=== PATIENT | male | born 1965 | race Caucasian/White ===

== ENCOUNTER → 2017-11-06 | Outpatient (REF) | payer BC ==
[2017-11-06 19:16] LABS: COMPLEMENT C3 107 MG/DL (90-180); COMPLEMENT C4 25.2 MG/DL (10-40); TOTAL PROTEIN 7.3 GM/DL (6.4-8.2)
[2017-11-08 09:33] LABS: HEPATITIS B SURFACE ANTIGEN NEGATIVE (NEGATIVE)
[2017-11-08 09:50] LABS: HEPATITIS C VIRUS ABY INDEX < 0.0 INDEX (<0.8)
[2017-11-08 12:32] LABS: ALBUMIN 4.43 GM/DL (3.29-5.55); ALBUMIN % 60.7 % (55.8-66.1); ALPHA-1-GLOBULIN % 3.7 % (2.9-4.9); ALPHA-1-GLOBULINS 0.27 GM/DL (0.17-0.41); ALPHA-2-GLOBULINS 0.68 GM/DL (0.42-0.99); ALPHA-2-GLOBULINS % 9.3 % (7.1-11.8); BETA-1-GLOBULINS 0.44 GM/DL (0.28-0.60); BETA-2-GLOBULINS 0.42 GM/DL (0.19-0.55); BETA-2-GLOBULINS % 5.7 % (3.2-6.5); GAMMA GLOBULIN % 14.6 % (11.1-18.8); GAMMA GLOBULINS 1.07 GM/DL (0.65-1.58)
[2017-11-08 14:55] LABS: UPEP INTERPRETATION NO M-SPIKE NOTED; URINE VOLUME RANDOM ML
[2017-11-10 00:37] LABS: ANCA-ATYPICAL <1:20 titer (Neg:<1:20); ANTI DOUBLE STRAND-DNA AB 2 IU/mL (0-9); CYTOPLASMIC NEUTROP AB ANCA-C <1:20 titer (Neg:<1:20); PERINUCLEAR AB ANCA-P <1:20 titer (Neg:<1:20)
== END ==
LOC: M LAB REF 17:15
DX: R80.9 Proteinuria, unspecified (principal)
CPT/HCPCS: 84165

== ENCOUNTER 2019-09-18 15:46 | Inpatient (IN) | payer BC ==
[~2019-09-18] VITALS: Ht 182.9 cm; Wt 106.3 kg
[2019-09-18] MEDS ORDERED: ACETAMINOPHEN TAB 650MG DOSE (2X325MG) PO PRN (17:00)
[2019-09-18] MEDS ORDERED: AMLO10TA5 PO (17:54)
[2019-09-18] MEDS ORDERED: METO1TAB7 PO (17:54)
--- NOTE | 2019-09-18 18:07 | HPEPDOC ---
General Date of Admission September 18, 2019 at 16:40 Date of Service: September 18, 2019 Chief Complaint The patient is a 54-year-old male admitted with a reason for visit of Acute Renal Failure. Source: Patient Exam Limitations: No limitations Timing/Duration: Week(s) Severity: Moderate Associated Symptoms: Shortness of breath History of Present Illness Patient is 54 years old male with past medical history of hypertension, migraine, Wazsh-Rpwnlwvdm-Nxvme syndrome was transferred from [facility] with acute kidney injury. Patient stated that for past 12 months he didn't take any blood pressure medications due to to lack of insurance. For past 3-4 months he has been having increased headache. Yesterday he was in the outpatient clinic and he was found to have abnormal blood test and he was sent ER in [facility]. In ER patient was found to have blood pressure of 151/98, hemoglobin of 7.2, BUN 174 and creatinine 18, GFR 3, BNP 20,136. Patient was seen by Dr. Hendricks who recommended transfer him to [facility]. When I saw the patient he complains of shortness of breath, he stated he has been having increasing shortness of breath for past 3-4 months. Also patient stated that he has increased leg swelling for past few weeks. Home Medications Scheduled Amlodipine Besylate (Amlodipine Besylate) 10 Mg Tablet, 10 MG PO QHS, (Reported) Calcitriol (Calcitriol) 0.25 Mcg Capsule, 0.5 MCG PO DAILY Carvedilol (Carvedilol) 12.5 Mg Tablet, 25 MG PO BID Pantoprazole Sodium (Pantoprazole Sodium) 40 Mg Tablet., 40 MG PO QAM Allergies Coded Allergies: No Known Allergies (Unverified , 09/18/19) Past Medical History Medical History Hypertension, Voenw-Fzlyubekl-Mmyud syndrome, migraine Family History I reviewed his family history and found not pertinent Social History * Smoker: former Smoker Alcohol: Denies Drugs: denies A-FIB/CHADSVASC A-FIB History Current/History of A-Fib/PAF?: No Current PO Anticoag Therapy: No Review of Systems Constitutional: Reports: Weakness, Fatigue; Denies: Chills, Fever Eyes: Denies: Pain ENT: Reports: Head Aches Skin: Denies: Rash Pulmonary: Reports: Dyspnea Cardiovascular: Denies: Chest Pain, Palpitations Gastrointestinal: Denies: Nausea, Vomiting Genitourinary: Denies: Dysuria, Frequency Hematologic: Denies: Bruising Endocrine: Denies: Polydipsia, Polyphagia Musculoskeletal: Denies: Neck Pain Neurological: Denies: Weakness, Numbness Psych: Reports: Mood Normal Physical Examination General Exam: Positive: Alert, No Acute Distress Eye Exam: Positive: PERRLA ENT Exam: Positive: Atraumatic Neck Exam: Positive: Supple; Negative: JVD Chest Exam: Positive: Clear to auscultation, Other (dyspnea) Heart Exam: Positive: Rate Normal Telemetry: Positive: No significant arrhythmia Abdomen Exam: Positive: Normal bowel sounds Extremity Exam: Negative: Clubbing Skin Exam: Positive: Nl turgor and temperature Neuro Exam: Positive: Strength at 5/5 X4 ext, Cranial Nerves 3-12 NL Psych Exam: Positive: Mental status NL Vital Signs [id number] Assessment/Plan Patient is 54 years old male with past medical history of hypertension, migraine, Ezihe-Uuzkiaioj-Lryra syndrome was transferred from [facility] with acute kidney injury. Patient stated that for past 12 months he didn't take any blood pressure medications due to to lack of insurance. For past 3-4 months he has been having increased headache. Yesterday he was in the outpatient clinic and he was found to have abnormal blood test and he was sent ER in [facility]. In ER patient was found to have blood pressure of 151/98, hemoglobin of 7.2, BUN 174 and creatinine 18. Patient was seen by Dr. Hendricks who recommended transfer him to [facility]. When I saw the patient he complains of shortness of breath, he stated he has been having increasing shortness of breath for past 3-4 months. Also patient stated that he has increased leg swelling for past few weeks. Problems (1) STELLA (acute kidney injury) Status: Acute Problem Text: Most likely due to hypertensive nephropathy Patient was noncompliant to his blood pressure medications We will check UA, electrolytes, osmolality, sediments, ZANE, c-ANCA, BNP, C3, C4 We'll proceed with imaging study We'll repeat CMP, CBC Appreciate/agree with director of social work consult (2) Acute anemia Status: Acute Problem Text: Unknown etiology for now most likely be secondary to acute on chronic kidney failure Iron panel Stool for occult blood B12, folate We will transfuse if hemoglobin less than 7 (3) Hypertension Status: Chronic Problem Text: Blood pressure currently is under control Continue Norvasc 10 mg daily Continue metoprolol 50 mg Hydralazine IV when necessary with parameters Plan / VTE VTE Prophylaxis Ordered?: Yes BRIT AC DO September 18, 2019 18:07
[2019-09-18] MEDS ORDERED: hydrALAZINE 20MG/ML 1ML VIAL (J0360 PER 20MG) IV PRN (18:15)
[2019-09-18 18:34] LABS: HEMATOCRIT 21.2 % (42.0-52.0); HEMOGLOBIN 7.4 g/dl (13.5-17.5); MEAN CORPUSCULAR HGB CONC 34.9 g/dl (32.0-36.5); MEAN CORPUSCULAR VOLUME 85.8 fl (80.0-96.0); PLATELET COUNT, AUTOMATED 152 10^3/uL (150-450); RED BLOOD COUNT 2.47 10^6/uL (4.30-6.10)
[2019-09-18 18:39] LABS: IONIZED CALCIUM 3.1 MG/DL (4.5-5.3)
[2019-09-18 18:57] LABS: INR 1.1; PROTHROMBIN TIME 13.9 SECONDS (11.8-14.0)
[2019-09-18 19:08] LABS: ALBUMIN 3.3 GM/DL (3.2-5.2); ALT/SGPT 51 U/L (12-78); BILIRUBIN,TOTAL 0.3 MG/DL (0.2-1.0); BLOOD UREA NITROGEN 172 MG/DL (7-18); CALCIUM LEVEL 5.5 MG/DL (8.5-10.1); CARBON DIOXIDE LEVEL 8 MEQ/L (21-32); CHLORIDE LEVEL 106 MEQ/L (98-107); GLOMERULAR FILTRATION RATE 2.9 (>56); GLUCOSE, FASTING 89 MG/DL (70-100); POTASSIUM SERUM 4.7 MEQ/L (3.5-5.1); SODIUM LEVEL 133 MEQ/L (136-145); TOTAL PROTEIN 6.2 GM/DL (6.4-8.2)
[2019-09-18 19:20] LABS: URIC ACID 7.7 MG/DL (3.5-7.2)
[2019-09-18] MEDS ORDERED: SODIUM BICARBONATE 8.4% INJ 50 ML SYRINGE IV ONE (19:45)
[2019-09-18 19:50] LABS: HEMOGLOBIN A1c 4.8 %
[2019-09-18 19:56] LABS: CHOLESTEROL LEVEL 136 MG/DL (<200); CHOLESTEROL RISK RATIO 3.885 (<5); FERRITIN 265 NG/ML (26-388); HDL CHOLESTEROL 35 MG/DL (>40); IRON (FE) 230 UG/DL (65-175); LDL CHOLESTEROL 77 MG/DL (<100); NON-HDL-C 101 MG/DL; PTH INTACT 1064.4 PG/ML (18.5-88.0); TOTAL IRON BINDING CAPACITY 213 UG/DL (250-450); TRIGLYCERIDES LEVEL 122 MG/DL (<150)
[2019-09-18 20:00] VITALS: BP 161/94
[2019-09-18] MEDS ORDERED: DARBEPOETIN 200MCG/0.4ML *DIALYSIS* SYRINGE (J0882 PER 1MCG) IV SCH (20:30)
[2019-09-18 20:38] LABS: ABG BASE EXCESS -17.3 (-2.0-2.0); ABG HCO3 7.7 MEQ/L (22.0-26.0); ABG O2 SATURATION 98.3 % (95.0-99.0); ABG PARTIAL PRESSURE O2 159.5 mmHg (75.0-100.0); ABG STANDARD HCO3 10.9 MEQ/L (22.0-26.0); ABG TOTAL CO2 8.2 MEQ/L (22.0-29.0); ABG pH (ARTERIAL) 7.285 UNITS (7.350-7.450)
[2019-09-18 20:40] LABS: ABG PARTIAL PRESSURE CO2 16.5 mmHg (35.0-45.0)
[2019-09-18] MEDS: amLODIPine 10 MG TAB PO SCH (20:48)
[2019-09-18] MEDS: METOPROLOL SUCC (TopROL XL) 50MG **XL** TAB PO SCH (20:48)
[2019-09-18] MEDS ORDERED: HEPARIN SOD (PORCINE) 5000UNITS/ML VIAL (J1644 PER 1000UNITS) SC SCH (21:00)
[2019-09-18 22:28] LABS: CREATININE,RANDOM URINE 42.2 MG/DL; POTASSIUM RANDOM URINE 14.1 MEQ/L
--- NOTE | 2019-09-18 22:52 | REP ---
CHEST: REASON: Dyspnea. PRIORS: None. FINDINGS: The technique utilized in obtaining the radiograph has magnified the cardiac silhouette and accentuated the interstitial markings. The superior mediastinal structures are midline. The cardiac silhouette is unremarkable in size, shape, and position. The diaphragmatic surfaces of the lungs are regular, and the costophrenic angles are clear. The pulmonary benton are clear. The imaged osseous structures are intact. IMPRESSION: There is no acute cardiopulmonary disease. Electronically Signed by Ronald Kenney DO 09/19/2019 11:58 A
--- NOTE | 2019-09-18 23:14 | REPVR ---
PROCEDURE INFORMATION: Exam: US Retroperitoneal Limited, Kidneys Exam date and time: 09/18/2019 11:04 PM Age: 54 years old Clinical indication: Abnormal findings; Abnormal lab test; Other: Wili; Additional info: Acute kidney injury TECHNIQUE: Imaging protocol: Real-time ultrasound of the retroperitoneum with image documentation. Examination was focused on the kidneys. COMPARISON: No relevant prior studies available. FINDINGS: Right kidney: The right kidney measures 11.4 cm in its cephalocaudad dimension and 4.3 x 4.1 cm in diameter. The parenchyma is echogenic with no mass, cyst or hydronephrosis. Left kidney: The left kidney measures 9.2 cm in its cephalocaudad dimension and 4.4 x 4.3 cm in diameter. The parenchyma is echogenic with no mass, cyst or hydronephrosis. Bladder: The urinary bladder is incompletely distended but appear grossly unremarkable. IMPRESSION: 1. Echogenic kidneys bilaterally consistent with medical renal disease. 2. Otherwise negative renal sonogram. No hydronephrosis. Electronically signed by: Jelani Mata On 09/18/2019 23:14:07 PM
[2019-09-19] VITALS (14 sets, daily range): BP systolic 130–180; BP diastolic 78–106
[2019-09-19 05:23] LABS: MEAN CORPUSCULAR HEMOGLOBIN 30.2 pg (27.0-33.0); MEAN CORPUSCULAR HGB CONC 35.4 g/dl (32.0-36.5); MEAN CORPUSCULAR VOLUME 85.3 fl (80.0-96.0); PLATELET COUNT, AUTOMATED 136 10^3/uL (150-450); RED BLOOD COUNT 2.25 10^6/uL (4.30-6.10); WHITE BLOOD COUNT 6.4 10^3/uL (4.0-10.0)
[2019-09-19 05:40] LABS: HEMATOCRIT 19.2 % (42.0-52.0)
[2019-09-19 05:41] LABS: HEMOGLOBIN 6.8 g/dl (13.5-17.5)
[2019-09-19 06:25] LABS: ALBUMIN 2.9 GM/DL (3.2-5.2); BILIRUBIN,TOTAL 0.5 MG/DL (0.2-1.0); CALCIUM LEVEL 5.6 MG/DL (8.5-10.1); GLOMERULAR FILTRATION RATE 2.8 (>56); MAGNESIUM LEVEL 2.7 MG/DL (1.8-2.4); POTASSIUM SERUM 4.3 MEQ/L (3.5-5.1); TOTAL PROTEIN 5.6 GM/DL (6.4-8.2)
[2019-09-19] MEDS: CALCIUM ACETATE 667MG GELCAP PO SCH ×3 (08:52→15:52)
--- NOTE | 2019-09-19 09:42 | CR ---
DATE OF CONSULTATION: 09/18/2019 REASON FOR CONSULTATION: Acute kidney failure. HISTORY OF PRESENT ILLNESS: This is a 54-year-old male with a pertinent past medical history of hypertension, Cqazm-Obmtaaebh-Ezdqk syndrome, noncompliance who was transferred from [facility] for acute kidney failure. The patient states that he went to the emergency room as he was complaining of dyspnea on exertion for the last 2 weeks that was not improving. He notes that the dyspnea on exertion was noticeable when he was at home and was ambulating about 30 feet from his living room to his bedroom. He endorses that the dyspnea on exertion improved with rest. The patient does endorse having lower extremity edema that has worsened in the last 2 weeks as well and he is unable to sleep at night. He normally sleeps with two pillows at night. For the last 2 weeks he has increased to four to five pillows and is sitting up so he is unable to get a good night's rest. He denies any chest pain, palpitations, other respiratory-like symptoms and sick contacts. He does endorse having watery loose diarrhea for the last 1 month but no new antibiotics or any medication change. He does state to me that he was on amlodipine in the past and does not believe in taking any medication. When reviewing [facility] records, it is documented that the patient was on metoprolol succinate 50 mg daily, amlodipine 10 mg daily as well as hydralazine 50 mg twice a day. He did endorse at that initial presentation, he stopped taking his hydralazine after he saw his renal specialist 1 year prior. He is unsure of the other medications and who prescribed them but he did not admit them to me during this exam. In [facility] emergency room, laboratory showed a BUN 175, creatinine 18.0 with a GFR of 3, calcium 5.7, and a proBNP of 20,136. Chest x-ray shows mild diffuse prominent interstitial markings throughout both lungs but no focal pulmonary consolidation or pleural effusion. EKG was reviewed by me and this shows biatrial enlargement, sinus rhythm, normal axis with a slightly prolonged QTC of 492 ms and delta wave which is more noticeable in AVF and V3. [facility] emergency room then called [facility] for transfer for evaluation by nephrology for possible dialysis. PAST MEDICAL HISTORY: 1. Hypertension. 2. Chronic kidney disease stage IV. 3. Qfctz-Keommecnk-Yxacd syndrome. PAST SURGICAL HISTORY: Anterior cruciate ligament (ACL) repair in the left knee. FAMILY HISTORY: Mother - hypertensive disease. Father - chronic obstructive pulmonary disease (COPD), . Negative for chronic kidney disease, history of dialysis or cardiomyopathies. SOCIAL HISTORY: Former smoker. Quit 10 years ago. Smokes one pack a day for 10 years. Socially drinking alcohol like one to two beers but denies any illicit drug use. He is a F[employer] and has no health care proxy. He lives with his girlfriend in [place]. ALLERGIES: No known drug allergies. REVIEW OF SYSTEMS: Denies fevers, rigor. Endorses chills and weight gain. Unsure of how much. HEENT: Endorses presyncope, dizziness, lightheadedness. Denies any vision change, postnasal drip, or upper respiratory-like symptoms. CARDIOVASCULAR: Denies any palpitations, chest pain. Endorses lower extremity edema. Endorses paroxysmal nocturnal dyspnea. RESPIRATION: Endorses dyspnea on exertion. Denies wheezing, cough. ABDOMINAL: Denies nausea or vomiting. Endorses watery loose stool. Denies black tarry stool or blood in stool. GENITOURINARY: Denies any increased in urinary frequency, dysuria or decrease in urine flow or disruption in urine flow. HEMATOLOGICAL: Denies any lymphadenopathy, easy bruising or bleeding. ENDOCRINE: Denies any polydipsia, polyphagia or history of diabetes. MUSCULOSKELETAL: Denies any new joint swelling, joint pain or back pain. NEUROLOGIC: Denies any headaches, weakness or numbness. INTEGUMENTARY: Endorses a pruritic rash on the back and his forearms but nonpapillary specific. PSYCH: Denies any depression or anxiety. PHYSICAL EXAMINATION: VITALS: Temperature 97.7, pulse 76, respiration 18, blood pressure 151/94, map of 116, pulse oximetry 99% on room air. GENERAL: This is a very pleasant 54-year-old male sitting up in bed. Does not appear in any acute distress. Not using any accessory muscles with no normal conversation, saturating appropriately on room air. HEENT: Atraumatic, normocephalic. Pupils equal, round and reactive. Pale conjunctiva. No epistaxis noted. Mallampati score of 4. Moist mucous membranes. Jugular venous distention (JVD) 5 cm up the sternal notch with no lymphadenopathy and trachea is at midline. CARDIOVASCULAR: Distant heart sounds. No audible murmurs or rubs appreciated. S1, S2 sounds are present but faint. Very difficult to assess. Unsure if due to body habitus. 1+ pitting edema bilaterally up to knees. No sacral edema noted. PULMONARY: Clear to auscult bilaterally. No audible wheezing, rhonchi or rales. No E/A egophony. CHEST: Gynecomastia noted. GASTROINTESTINAL: Positive bowel sounds in all four quadrants. Obese abdomen with no bruising, tenderness on palpitation. No rebound or guarding noted. No skin changes noted as well. GENITOURINARY: Exam deferred. No costovertebral angle (CVA) tenderness bilaterally. INTEGUMENTARY: Rash. Multiple tattoos appreciated bilaterally in the arms upper and in the forearms. NEUROLOGIC: No focal deficits noted. No asterixis noted. Alert and oriented times three, appropriately answering questions. PSYCH: Appropriate affect. LABORATORY: Hematology: WBC 7.0, hemoglobin 10.4, hematocrit 21.2, platelets 152. Chemistry: Sodium 133, potassium 4.7, chloride 106, carbon dioxide 8, ion gap 19, BUN 172, creatinine 18.50, GFR 2.9, fasting glucose 89. A1c 4.8, osmolality 341, uric acid 7.7, calcium 5.5, ionized calcium 3.1, phosphorus 15.0, iron 230, TIBC 213, transferrin percent 108, ferritin 265. .Total bilirubin 0.3, AST 21, ALT 51, alkaline phosphatase 82. Total creatinine kinase 568, proBNP 21,433. Total protein 6.2, albumin 3.3. ABG: pH 7.285, pCO2 16.5, pO2 159.5, HcO3 7.7. Compliment C3 87, compliment C4 24. IMAGING: Chest x-ray: Official report is currently pending. Right cardiac silhouette appears slightly enlarged. Slight increase in interstitial markings but no pleural effusion or consolidation under costophrenic angles bilaterally. Slight widening of the mediastinum consistent with the uncoiling of the aorta. There is increased interstitial markings bilaterally. ASSESSMENT/PLAN: 1. End-stage renal disease: Patient does have a history of chronic kidney disease. Was last seen by Dr. Hendricks's office in May 2018. At that time, he had a stage IV kidney disease with a GFR of 25%. At the current time, his GFR is 3% with BUN of 174 and a creatinine of 18.0. This is consistent with end-stage renal disease. With a PTH being 1064 patient states that this has been going on for at least greater than 6 months. Osmolarity being 341 with no neurologic deficits noted, means that the patient has compensated this slowly and is more of a chronic process versus an acute change. The patient was discussed the risks and benefits of hemodialysis and is agreeable of going to hemodialysis three times a week. It is not urgent to do it tonight because the patient is apparently not in any distress. We will order a PermaCath be placed in the morning. He will be nothing by mouth after midnight and he will start dialysis tomorrow. PFS consult will be placed to set up outpatient dialysis. The possible cause of his end-stage renal disease could be secondary to his noncompliance with his hypertensive medication abut will obtain baseline labs as well such as ANCA, pANCA, cANCA, DsDNA Ab,GBM Ab, compliment, Hepatitis B and hepatitis C screening as well. 2. Anemia in the setting of end-stage renal disease: His hemoglobin was 7.4 and hematocrit 21.2. Physical exam is consistent with anemia with a pale conjunctiva and pale-appearing skin. He states that his fecal stool at the [facility] emergency room was negative for blood but will confirm again today. We will transfuse him 2 units of packed red blood cells, but he will get it tomorrow at hemodialysis for his is currently fluid-overloaded and we will have to do it while he is being dialyzed. The risks and benefits were reviewed with the patient and the consent has been placed on the chart. 3. Hypertensive heart disease: His blood pressure this evening was 131/94 with a map of 116. He is noncompliant with his home medications such as the hydralazine, amlodipine, and metoprolol even though his heart rate has been at 76 beats per minute at this current time. His hypertensive heart disease can be contributed by his fluid overload from his end-stage renal disease. He is currently asymptomatic so no urgent IV medications. We will just continue with his amlodipine 10 mg and his metoprolol 50 mg nightly and monitor his hypertension. 4. High ion gap metabolic acidosis: Serum bicarbonate was 8, ABG showed a pH of 7.28 with a pCO2 of 16.5 which is consistent with high ion gap metabolic acidosis secondary to his end-stage renal disease. We do recommend giving him 1 amp of sodium bicarbonate at this current time and then tomorrow, we will start with dialysis but will do insufficient clearance to make sure we do not over correct too fast. 5. Congestive heart failure diastolic dysfunction probably secondary to longstanding uncontrolled hypertension. Will obtain an echocardiogram and optimize his volume status with dialysis. We will continue with metoprolol succinate 50 mg daily and review his echocardiogram. 6. Chronic kidney disease with mineral bone disease: PTH significantly elevated with low calcium and high phosphorus. This means that the patient's kidney injury is more chronic in nature. We have started him on PhosLo and we will notice improvement of the PTH with multiple dialysis sessions. VYD
[2019-09-19] MEDS ORDERED: MIDAZOLAM INJ 2MG/2ML VIAL (J2250 PER 1MG) As Ordered ONE (10:27)
[2019-09-19] MEDS ORDERED: diphenhydrAMINE 50MG/ML VIAL (J1200) As Ordered ONE (10:27)
[2019-09-19] MEDS ORDERED: fentaNYL 100 MCG/2 ML INJECTION (J3010) As Ordered ONE (10:27)
[2019-09-19] MEDS ORDERED: LIDOCAINE 1% MDV 20ML VIAL As Ordered ONE (10:28)
[2019-09-19] MEDS ORDERED: ceFAZolin 1GM VIAL (J0690 PER 500MG) As Ordered ONE (10:35)
--- NOTE | 2019-09-19 12:00 | IPNPDOC ---
Text Note Date of Service The patient was seen on 09/19/19. NOTE Subjective: No any acute events overnight. Patient complains of mild shortness of breath. He denies fever, chills, nausea, vomiting, diarrhea Objective: VITAL SIGNS: Please see below. GENERAL: awake, alert, NAD HEENT: NCAT, anicteric sclera, KEKE NECK: supple, plus JVD CARDIOVASCULAR EXAMINATION: NS1S2, regular rate/rhythm RESPIRATORY EXAMINATION: CTA b/l, no wheezes/rales/rhonchi ABDOMINAL EXAMINATION: positive bowel sounds x 4, NT EXTREMITIES: no cyanosis, clubbing, edema SKIN: warm, no rashes. NEUROLOGICAL EXAMINATION: AAO x 3, no motor/sensory deficits PSYCHIATRIC EXAMINATION: calm, normal affect Assessment/Plan Patient is 54 years old male with past medical history of hypertension, migraine, Txenx-Txqushdac-Peceu syndrome was transferred from [facility] with acute kidney injury. Patient stated that for past 12 months he didn't take any blood pressure medications due to to lack of insurance. For past 3-4 months he has been having increased headache. Yesterday he was in the outpatient clinic and he was found to have abnormal blood test and he was sent ER in [facility]. In ER patient was found to have blood pressure of 151/98, hemoglobin of 7.2, BUN 174 and creatinine 18. Patient was seen by Dr. Hendricks who recommended transfer him to [facility]. When I saw the patient he complains of shortness of breath, he stated he has been having increasing shortness of breath for past 3-4 months. Also patient stated that he has increased leg swelling for past few weeks. Problems (1) STELLA (acute kidney injury) Most likely due to hypertensive nephropathy vs autoimmune diseases vs nephrotic syndrome Patient was noncompliant to his blood pressure medications Dialysis today with blood transfusion ANCA, pANCA, cANCA, Hepatitis panel pending (2) Acute anemia Unknown etiology for now Most likely secondary to acute on chronic kidney failure Iron panel did not show low iron Stool for occult blood was negative in [facility]. We will repeat it B12, folate pending Will transfuse today during dialysis (3) Hypertension Blood pressure currently is under control Continue Norvasc 10 mg daily Continue metoprolol 50 mg Hydralazine IV when necessary with parameters Metabolic acidosis Secondary to uremia Patient received bicarbonate yesterday Dialysis today Secondary hyperparathyroidism Secondary to acute on chronic kidney failure Phoslo started Calcium replaced VS,Fishbone, I+O VS, Fishbone, I+O Laboratory Tests 09/18/19 18:17 09/19/19 04:56 Vital Signs Date Time Temp Pulse Resp B/P (MAP) Pulse Ox O2 Delivery O2 Flow Rate FiO2 09/19/19 11:35 64 16 99 Nasal Cannula 2 09/19/19 10:08 99 09/19/19 08:00 130/81 (97) I&O- Last 24 Hours up to 6 AM 09/19/19 05:59 Intake Total 920 ml Output Total 800 ml Balance 120 ml BRIT AC DO September 19, 2019 12:00
--- NOTE | 2019-09-19 12:31 | REP ---
IR Permcath placement. IR ultrasound of the right neck. IR Permcath insertion under fluoroscopy and ultrasound guidance. IR moderate sedation. Clinical information: Renal failure. Needs dialysis. Physician: Dr. Adan. Procedure: The patient was advised of the benefits, risks and alternatives of the procedure and informed consent was obtained. The time-out was performed with verification of the patient's name, MRN, site of procedure and type of procedure to be performed. The patient was positioned in the supine position on the angiographic table. The site was prepped and draped in the usual sterile fashion. Moderate sedation was performed by the physician including the presence of an independent trained observer that assisted in monitoring the patient's level of consciousness and physiologic status. Following the administration of fentanyl and Versed , the physician spent 45 minutes of continuous face to face time with the patient. Ultrasound of the right neck reveals a patent and compressible right internal jugular vein. A hockey scout radiograph reveals no gross abnormality. The neck and anterior chest wall were anesthetized with lidocaine. The right internal jugular vein was accessed under ultrasound guidance, using a micro introducer needle, via a lateral approach. An 018 cope wire was advanced into the inferior vena cava. Incision at the internal jugular access site and anterior chest wall were made using a scalpel. The needle was removed and the tract was serially dilated under fluoroscopy guidance. A peel away sheath was advanced over the wire under fluoroscopy guidance into the Superior vena cava. The catheter was inserted through the subcutaneous tissues of the chest wall with a tunneling device. The catheter was then advanced through the peel-away sheath under fluoroscopy guidance to the right atrium. The peel-away sheath was removed. The catheter was positioned with the tip in the right atrium. The puncture site was closed. The catheter was secured in place using 2-0 Prolene. Both sites were cleansed and sterile dressings applied. At the conclusion of the procedure, the ports of the catheter aspirate and flush freely. The catheter was locked with high-dose heparin. The patient tolerated the procedure well and was returned to the PRU in stable condition. EBL: < 5 ml. Complications: None. Conclusion: Successful placement of right sided Palindrome Permcath for dialysis. The catheter is ready for immediate use. Thank you this referral. Electronically Signed by Tiffany Adan MD 09/19/2019 12:29 P
--- NOTE | 2019-09-19 12:35 | IRMSE ---
[facility] IR Moderate Sedation Eval. Date and Time Date: September 19, 2019 Time: 11:00 ASA Classification ASA Classification: III-Severe systemic dis. Mallampati Score: II NPO: Yes Obstructive Sleep Apnea: No Interval Plan: moderate sedation DAYNE GARCIA MD September 19, 2019 12:35
[2019-09-19] MEDS: CALCITRIOL 0.25 MCG CAP (S0169) PO SCH (15:50)
[2019-09-19 18:29] LABS: BASO % 0.2 % (0.0-1.0); EOS # 0.1 10^3/uL (0.0-0.5); EOS % 1.4 % (0.0-3.0); HEMATOCRIT 22.8 % (42.0-52.0); HEMOGLOBIN 7.9 g/dl (13.5-17.5); LYMPH # 0.9 10^3/uL (1.5-5.0); LYMPH % 15.9 % (24.0-44.0); MEAN CORPUSCULAR HEMOGLOBIN 29.6 pg (27.0-33.0); MEAN CORPUSCULAR HGB CONC 34.6 g/dl (32.0-36.5); MEAN CORPUSCULAR VOLUME 85.4 fl (80.0-96.0); MONO # 0.5 10^3/uL (0.0-0.8); MONO % 9.3 % (0.0-5.0); NEUTROPHILS # 4.2 10^3/uL (1.5-8.5); NEUTROPHILS % 72.7 % (36.0-66.0); PLATELET COUNT, AUTOMATED 150 10^3/uL (150-450); RED BLOOD COUNT 2.67 10^6/uL (4.30-6.10); WHITE BLOOD COUNT 5.7 10^3/uL (4.0-10.0)
[2019-09-19 18:49] LABS: ALBUMIN 3.2 GM/DL (3.2-5.2); BILIRUBIN,TOTAL 0.8 MG/DL (0.2-1.0); CALCIUM LEVEL 7.3 MG/DL (8.5-10.1); MAGNESIUM LEVEL 2.4 MG/DL (1.8-2.4); POTASSIUM SERUM 3.5 MEQ/L (3.5-5.1); TOTAL PROTEIN 6.1 GM/DL (6.4-8.2)
[2019-09-19] MEDS ORDERED: POTASSIUM CHLORIDE 10 MEQ SR TABLET PO ONE (19:30)
--- NOTE | 2019-09-19 20:37 | ECHO ---
DATE OF PROCEDURE: 09/19/2019 REFERRING PHYSICIAN: Dr. Al Saldaña INDICATION: Pericardial effusion. HEIGHT: 183 cm WEIGHT: 110 kg 2D MEASUREMENTS: Aortic annulus: 2.1 cm Aortic root: 4.1 cm Left atrium: 3.9 cm Ventricular septum: 1.25 cm Posterior wall: 1.31 cm Left ventricle diastole: 5.1 cm Inferior vena cava: 2.1 cm (more than 50% respiration variation). DOPPLER MEASUREMENTS: No aortic stenosis. No aortic regurgitation. Aortic valve velocity: 155 cm/s LVOT velocity: 110 cm/s LVOT VTI: 24.7 cm No mitral regurgitation. Mitral E velocity: 51.3 cm/s Mitral A velocity: 72.1 cm/s Mitral deceleration time: 380 ms Mild tricuspid regurgitation. Estimated right ventricle systolic pressure: 32-37 mmHg assuming a right atrial pressure of 5-10 mmHg. Pulmonary acceleration time: 123 ms MITRAL ANNULAR TISSUE DOPPLER: E prime septal: 5.65 cm/s E prime lateral 9.0 cm/s DESCRIPTION: Rhythm was sinus. This was a moderately technically difficult echocardiogram. This was a 2D, M-mode, color flow Doppler and pulse wave Doppler examination and included mitral annular tissue Doppler. CONCLUSIONS: 1. No pericardial effusion. 2. Mild concentric left ventricle hypertrophy. Normal regional left ventricular (LV) wall motion and wall thickening. Normal LV systolic function. Left ventricular ejection fraction (LVEF) 65% by visual estimate. Grade 1 LV diastolic dysfunction (impaired relaxation filling pattern). 3. Mild dilatation of the aortic root at the level of the sinus of Valsalva. 4. Suggestive of mild elevation of pulmonary artery systolic pressure. 5. Otherwise normal appearing echocardiogram Doppler findings. [facility]
[2019-09-19] MEDS: amLODIPine 10 MG TAB PO SCH (20:45)
[2019-09-19] MEDS: METOPROLOL SUCC (TopROL XL) 50MG **XL** TAB PO SCH (20:45)
--- NOTE | 2019-09-19 23:48 | IPN ---
DATE: 09/19/2019 Mr. Quezada was seen and examined this morning during bedside rounds on the floors and after his PermaCath placement by interventional radiology (IR) early this morning. Patient endorses that he slept relatively poor for nursing kept coming in to assess him. The shortness of breath while sleeping continues to persist and has not improved. He has no other complaints today and knows that he will be going to dialysis and understands that this will be three times a week. No other overnight events were reported by nursing or telemetry. PHYSICAL EXAM: Vital Signs: Temperature 98.6, pulse 69, respirations 16, blood pressure 139/81, mean arterial pressure (MAP) 100, pulse oximetry 98% on room air. Intake total 920 mL, output total 400 mL with a balance of 520 mL. Weight is 109.7 kg. General: This is a very pleasant 54-year-old male sitting up in bed, does not appear in acute distress. He is not using any accessory muscles, saturating appropriately on room air. HEENT: Atraumatic, normocephalic. Mallampati score of 4. Moist mucous membranes. Jugular venous distention (JVD) still persistent at 5 cm above the sternal notch with no lymphadenopathy and trachea is midline. Cardiovascular: Continues to have distant heart sounds but no audible murmurs, rubs or gallops. S1 to S2 sounds are present but faint. Very difficult to assess due to body habitus. 1+ pitting edema bilaterally up to knees. No sacral edema noted. Pulmonary: Clear to auscultate bilaterally. No audible wheezing, rhonchi or rales. No e-to-a egophony. Chest: Gynecomastia noted. Abdomen: Positive bowel sounds in all four quadrants. Obese. No bruising, no tenderness on palpation. No rebounding, no guarding noted. No skin change noted. Integumentary: Continues to have multiple tattoos in the bilateral arms. Neurologic: No focal deficits noted. No asterixis. Psych: Appropriate affect. LABORATORY DATA: Hematology: White count 6.4, hemoglobin 6.8, hematocrit 19.2, platelets 136. Chemistry: Sodium 137, potassium 4.3, chloride 107, carbon dioxide 7, anion gap 23, BUN 176, creatinine 19.0, GFR of 2.8, fasting glucose 89, A1c 4.8, calcium 5.7, magnesium 2.7, albumin 2.9. Liver profile within normal limits. ASSESSMENT AND PLAN: 1. End-stage renal disease. He will be going down to dialysis today after the Permacath. He will have a short dialysis time of 2 hours with reduced blood flow rate of 250 with a smaller filter and to make sure to prevent dialysis disequilibrium for this is his first session. Will only remove max of 2 liters of fluid. He will then go back to dialysis tomorrow for a 3-hour session. He has a consult in place for he needs to set up outpatient dialysis. Possible cause of his end-stage renal disease is possibly noncompliance of his hypertension medication, but p-ANCA, c-ANCA and basement membrane antibodies currently pending, as well as hepatitis B and hepatitis C and profile as well. 2. Anemia in the setting of end-stage renal disease. Hemoglobin is 6.4. He is going to get 2 liters removed during dialysis. At that time, he will get 1 unit of packed red blood cells (RBCs) during dialysis for it is a short dialysis. He cannot get 2 total during that time frame, so once he is back on the floor, he will get another unit for a total of 2 units of packed RBCs to be transfused. Iron study shows his iron level is actually adequate at 230, so it could be secondary to his end-stage renal disease, and he will benefit from the Aranesp, which he will get during dialysis. 3. Hypertensive heart disease. Will continue with his amlodipine 10 mg and metoprolol 50 mg nightly. I believe his blood pressure will improve with adequate fluid removal, but we will monitor and adjust hypertensive medication as needed as well. 4. High anion gap metabolic acidosis. These labs were done prior to dialysis, which we know is secondary to his end-stage renal disease. He did get one amp of sodium bicarbonate last night, and I predict his bicarbonate will improve with multiple dialysis sessions. Will followup on it tomorrow. 5. Congestive heart failure with diastolic dysfunction, probably secondary to his longstanding uncontrolled hypertension. Continue with metoprolol succinate 50 mg daily and review his echocardiogram, which official report is currently pending. 6. Secondary Hyperparathyroidism: PTH is significantly elevated. treat PO4 with PhosLo, which will slightly help with his calcium. I believe his PTH will improve with multiple sessions in a couple of months. We will start him on calcitriol tomorrow morning to help with his low calcium as well. 7. Chronic kidney disease with mineral bone disease:Hypocalcemia in the setting of end-stage renal disease. We will start him on calcitriol 0.5 mcg daily in the morning. cont calcium based PO4 binder. MTDD
[2019-09-20] VITALS (7 sets, daily range): BP systolic 138–160; BP diastolic 77–102
[2019-09-20 01:04] LABS: HEMATOCRIT 23.1 % (42.0-52.0)
[2019-09-20 03:44] LABS: URINE TOTAL PROTEIN 129.6 MG/DL (0-12)
[2019-09-20 04:00] LABS: TOTAL PROTEIN 24 HOUR URINE 1846.8 MG/24HR (50-150)
--- NOTE | 2019-09-20 04:33 | CR ---
DATE AND TIME OF CONSULTATION: 09/19/2019 at 9:34 p.m. CARDIOLOGY CONSULTATION: REFERRING PHYSICIAN: Dr. Al Saldaña REASON FOR CONSULTATION: Atrial fibrillation, Fdpuj-Otellyepv-Vtzck. HISTORY OF PRESENT ILLNESS: Mr. Cory Quezada is a pleasant 54-year-old man who reports having recurrent palpitations for many years. He reports he was previously diagnosed with Chpnr-Vzllpcilx-Wrmsz on the basis of an electrocardiogram. No prior electrophysiology studies. He has chronic kidney disease and currently has end-stage kidney disease. During this hospitalization he had placement of a right subclavian dialysis catheter. Nephrology is currently seeing him during this hospitalization. He reports he has had, up until this admission, a 2-week history of progressive exertional dyspnea to the point of dyspnea with minimal activity and sometimes at rest. No orthopnea or paroxysmal nocturnal dyspnea (PND). During the same 2-week period, he noticed progressive edema in both legs and ankles. Denies any chest, neck, jaw, or upper extremity pain, pressure, tightness, squeezing, or heaviness with or without exertion. He reports he has had longstanding recurrent palpitations for many years that occur "occasionally," lasting for about a minute or two, described as a rapid pulsation over his left anterior chest. Sometimes he can have a little bit of lightheadedness with this. No presyncope or syncope. No embolic events. No intermittent claudication. Patient reports he has had systemic hypertension for, he estimates, about 12 years. Due to lack of insurance coverage up until this admission, he was not taking any antihypertensive agents because of cost issues. Echocardiogram Doppler performed during this hospitalization (09/19/2019) has been reported under separate cover. Principal findings include mild concentric left ventricular hypertrophy (LVH) with normal regional left ventricle (LV) wall motion and wall thickening. Normal LV systolic function. Left ventricular ejection fraction (LVEF) 65% by visual estimate. Grade 1 LV diastolic dysfunction (impaired relaxation filling pattern). Mild dilatation of the aortic root at the level of the sinuses of Valsalva (4.1 cm). Suggestive of mild elevation of pulmonary artery systolic pressure. Otherwise, normal appearing echocardiogram Doppler findings. Left atrial dimension was 3.9 cm. Ventricular septum measured 1.25 cm, and posterior wall measured 1.31 cm. OTHER PAST MEDICAL AND SURGICAL HISTORY: Chronic kidney disease, now currently end-stage kidney disease. Reports previous diagnosis of Ycgjf-Nidnwhogf-Ubjmo on the basis of an ECG. Systemic hypertension. Repair of left knee anterior cruciate ligament. FAMILY HISTORY: Mother had hypertension. Father had chronic obstructive pulmonary disease (COPD) and is . SOCIAL HISTORY: Prior smoker, for which he quit 10 years ago. Prior to that, he had smoked one pack per day for 10 years. Consumes alcohol on social occasions. No illicit drug use. He is FULL CODE status. Lives with his girlfriend in [place]. ALLERGIES: No known adverse drug reactions. REVIEW OF SYSTEMS: As per history of present illness (HPI) above. All other 10-point review of systems questions negative. No anxiety, panic attacks, or depression. MEDICATIONS: Prior to admission: - amlodipine 10 mg nightly - metoprolol succinate 50 mg nightly Patient's current medications in hospital consist of: - calcitriol 0.5 mcg by mouth daily - PhosLo 1334 mg with meals by mouth - amlodipine 10 mg nightly - metoprolol succinate 50 mg nightly - darbepoietin franklin 200 mcg intravenous (IV) with hemodialysis sessions - hydralazine 10 mg IV every 1 hour as needed for uncontrolled hypertension - acetaminophen 650 mg every 4 hours as needed for pain or fever PHYSICAL EXAMINATION: Pleasant, obese man, who appears his chronologic age, who is not in any respiratory or psychologic distress. Height 72 inches, weight 109.7 kg, body mass index (BMI) 32.8. Temperature 98.9, pulse 105 (irregularly irregular). Respiratory rate 20. Blood pressure 160/90, oxygen saturation 98% on room air. Oral mucosa is moist and without pallor or cyanosis. Some missing teeth. Jugular venous pulsations were at 5 cm. First heart sound variable. Second heart sound was increased in intensity. No S3 or S4. No murmurs. No palpable apex beat. No parasternal lifts, heaves, thrills, or palpable heart sounds. Respiratory expansion and effort were good. No crackles or wheezes. Abdomen was soft and nontender with normal bowel sounds. Liver span difficult to percuss due to abdominal obesity. No palpable thyroid. No clubbing, nail bed cyanosis, or splinter hemorrhages. No icterus or skin lesions. Skin pallor was present. Oriented to person, place, and time. Mood and affect normal. Curvature of the spine normal. Gait normal. Gross motor strength and tone normal. No abnormal muscle atrophy, fasciculations, or tremors. Presence of subclavian dialysis catheter on the right. Carotids normal in volume and contour and without bruits. No palpable abdominal aorta. No abdominal bruits. Pedal pulses normal. No peripheral edema. No varicose veins. No hepatosplenomegaly or other organomegaly. Stool for occult blood will be ordered. Electrocardiogram 09/19/2019 at 1704 hours shows an episode of atrial tachycardia transitioning over to a sinus beat followed by a premature atrial contraction (PAC) followed by a sinus beat. On the sinus beats, the NJ interval is in the normal range, and I am not convinced the patient truly has delta waves. Nonspecific ST-T abnormalities present. It is difficult to completely exclude presence of delta waves but, from what I see on at least this electrocardiogram, it is not very convincing. Portable chest x-ray 09/18/2019 reported no acute cardiopulmonary disease. Cardiac silhouette was reported to be unremarkable in size, shape, and position. Costophrenic angles clear. Pulmonary benton clear. Portable technique reported to show magnification of the cardiac silhouette and accentuation of the interstitial markings. Renal ultrasound 09/18/2019 reported echogenic kidneys bilaterally, consistent with medical renal disease. No hydronephrosis. Laboratory work 09/18/2019 was reviewed. WBC 7.0, hemoglobin 7.4, hematocrit 21.2, MCV normal, MCH normal, MCHC normal, RDW normal, platelets 152. PT/INR of 1.10. Sodium 133, potassium 4.7, chloride 106, CO2 of 8, anion gap 19, BUN 172, creatinine 18.50, estimated GFR 2.9, glucose 89, calcium 5.5, hemoglobin A1c 4.8, uric acid 7.7, phosphorus elevated at 15.0, iron 230 (elevated), TIBC 313 (low), transferrin percent saturation 108 (high), ferritin 265, total bilirubin 0.3, AST 21, ALT 51, alkaline phosphatase 82, CPK 568, NT-proBNP 21,433, total protein 6.2, albumin 3.3, triglycerides 122, total cholesterol 136, LDL 77, HDL 35, PTH intact elevated at 1064.4. Laboratory work 09/19/2019 at 1756 hours shows sodium 140, potassium 3.5, chloride 110, CO2 of 10, BUN 123, creatinine 14.0, estimated GFR 4.0. ASSESSMENT AND PLAN: 1. Paroxysmal atrial fibrillation. On telemetry today, patient has been having episodes of paroxysmal atrial fibrillation with rapid ventricular response. His current CHADS-VASc score is 2 with a point received for congestive heart failure (CHF) and one point for systemic hypertension. He is also having episodes that look like paroxysmal atrial tachycardia. Because of his current severe anemia, which is being worked up, I will not place him on warfarin at the moment. Because of end-stage kidney disease, he is not a candidate for a direct oral anticoagulant. For now, I recommend a rate control approach rather than application of antiarrhythmic medications. For rate control, he is currently on metoprolol succinate 50 mg daily. I will switch him from metoprolol succinate to carvedilol to help improve blood pressure control. 2. Abnormal ECG. Electrocardiogram as described above. As noted, I am not very convinced that the patient truly has Krfwc-Nzizfwaup-Oeiwc, at least on the electrocardiogram that I described above. The QRS duration is not particularly wide and, on sinus beats, he does have a normal NJ interval; these findings go against presence of delta waves/Bpbyd-Wyztmuvjy-Gbnhv. Echocardiogram Doppler findings as described above. He does have hypertensive heart disease. 3. Systemic hypertension. Blood pressure presently uncontrolled. As noted above, I will switch him from metoprolol succinate to carvedilol. Agree with amlodipine and agree with use of hydralazine IV as needed for severely uncontrolled hypertension. Once the patient begins to settle in on hemodialysis, I think we will see significant improvement in control of systemic hypertension. 4. Hypertensive heart disease with congestive heart failure. Patient presents with 2-week history of progressive exertional dyspnea and peripheral edema, consistent with heart failure. At present, he appears compensated on examination. They echocardiogram Doppler shows features of hypertensive heart disease, including mild left ventricle hypertrophy and grade 1 LV diastolic dysfunction. Evaluation/management of systemic hypertension commented above. 5. Diastolic heart failure (acute on chronic). As per systemic hypertension and hypertensive heart disease categories above.
[2019-09-20 05:16] LABS: BASO # 0.1 10^3/uL (0.0-0.2); BASO % 0.9 % (0.0-1.0); EOS # 0.1 10^3/uL (0.0-0.5); EOS % 2.3 % (0.0-3.0); HEMATOCRIT 24.5 % (42.0-52.0); HEMOGLOBIN 8.6 g/dl (13.5-17.5); LYMPH # 1.4 10^3/uL (1.5-5.0); MEAN CORPUSCULAR HGB CONC 35.1 g/dl (32.0-36.5); MEAN CORPUSCULAR VOLUME 85.4 fl (80.0-96.0); MONO # 0.7 10^3/uL (0.0-0.8); MONO % 11.5 % (0.0-5.0); NEUTROPHILS # 3.4 10^3/uL (1.5-8.5); NEUTROPHILS % 59.9 % (36.0-66.0); PLATELET COUNT, AUTOMATED 149 10^3/uL (150-450); RED BLOOD COUNT 2.87 10^6/uL (4.30-6.10); WHITE BLOOD COUNT 5.6 10^3/uL (4.0-10.0)
[2019-09-20 05:48] LABS: ALBUMIN 2.9 GM/DL (3.2-5.2); BILIRUBIN,TOTAL 0.5 MG/DL (0.2-1.0); CREATININE FOR GFR 15.2 MG/DL (0.70-1.30); GLOMERULAR FILTRATION RATE 3.6 (>56); MAGNESIUM LEVEL 2.5 MG/DL (1.8-2.4); POTASSIUM SERUM 4.2 MEQ/L (3.5-5.1)
[2019-09-20] MEDS: CALCIUM ACETATE 667MG GELCAP PO SCH ×3 (08:09→17:57)
[2019-09-20 09:39] LABS: PHOSPHORUS LEVEL 9.1 MG/DL (2.5-4.9)
[2019-09-20 10:30] LABS: HEPATITIS B SURFACE ANTIBODY NEGATIVE (POSITIVE)
[2019-09-20 10:41] LABS: HEPATITIS B SURFACE ANTIGEN NEGATIVE (NEGATIVE)
--- NOTE | 2019-09-20 12:09 | IPNPDOC ---
Text Note Date of Service The patient was seen on 09/20/19. NOTE Subjective: No any acute events overnight. He denies fever, chills, nausea, v omiting, diarrhea Objective: VITAL SIGNS: Please see below. GENERAL: awake, alert, NAD HEENT: NCAT, anicteric sclera, KEKE NECK: supple, plus JVD CARDIOVASCULAR EXAMINATION: NS1S2, regular rate/rhythm RESPIRATORY EXAMINATION: CTA b/l, no wheezes/rales/rhonchi ABDOMINAL EXAMINATION: positive bowel sounds x 4, NT EXTREMITIES: no cyanosis, clubbing, edema SKIN: warm, no rashes. NEUROLOGICAL EXAMINATION: AAO x 3, no motor/sensory deficits PSYCHIATRIC EXAMINATION: calm, normal affect Assessment/Plan Patient is 54 years old male with past medical history of hypertension, migraine, Qphkd-Wnisbcrya-Dygap syndrome was transferred from [facility] with acute kidney injury. Patient stated that for past 12 months he didn't take any blood pressure medications due to to lack of insurance. For past 3-4 months he has been having increased headache. Yesterday he was in the outpatient clinic and he was found to have abnormal blood test and he was sent ER in [facility]. In ER patient was found to have blood pressure of 151/98, hemoglobin of 7.2, BUN 174 and creatinine 18. Patient was seen by Dr. Hendricks who recommended transfer him to [facility]. When I saw the patient he complains of shortness of breath, he stated he has been having increasing shortness of breath for past 3-4 months. Also patient stated that he has increased leg swelling for past few weeks. Problems (1) STELLA (acute kidney injury) Most likely due to hypertensive nephropathy vs autoimmune diseases vs nephrotic syndrome Patient was noncompliant to his blood pressure medications Dialysis today with blood transfusion ANCA, pANCA, cANCA, Hepatitis panel pending (2) Acute anemia Unknown etiology for now Most likely secondary to acute on chronic kidney failure Iron panel did not show low iron Stool for occult blood was negative in [facility]. We will repeat it B12, folate pending Will transfuse today during dialysis (3) Hypertension Blood pressure currently is under control Continue Norvasc 10 mg daily Continue metoprolol 50 mg Hydralazine IV when necessary with parameters Metabolic acidosis Secondary to uremia Patient received bicarbonate yesterday Dialysis today Secondary hyperparathyroidism Secondary to acute on chronic kidney failure Phoslo started Calcium replaced VS,Fishbone, I+O VS, Fishbone, I+O Laboratory Tests 09/19/19 17:56 09/20/19 00:47 09/20/19 05:05 Vital Signs Date Time Temp Pulse Resp B/P (MAP) Pulse Ox O2 Delivery O2 Flow Rate FiO2 09/20/19 07:59 98.5 61 18 152/93 (112) 99 Room Air 09/19/19 11:35 2 I&O- Last 24 Hours up to 6 AM 09/20/19 06:00 Intake Total 1400 ml Output Total 3200 ml Balance -1800 ml BRIT AC DO September 20, 2019 12:09
--- NOTE | 2019-09-20 12:36 | IPNPDOC ---
Text Note Date of Service The patient was seen on 09/20/19. NOTE Subjective: No any acute events overnight. Patient tolerated dialysis well. Y esterday patient developed new onset of atrial fibrillation with rapid ventricular rate. Objective: VITAL SIGNS: Please see below. GENERAL: awake, alert, NAD HEENT: NCAT, anicteric sclera, KEKE NECK: supple, no JVD CARDIOVASCULAR EXAMINATION: S1S2, regular rate/rhythm RESPIRATORY EXAMINATION: CTA b/l, no wheezes/rales/rhonchi ABDOMINAL EXAMINATION: positive bowel sounds x 4, NT EXTREMITIES: no cyanosis, clubbing, edema SKIN: warm, no rashes. NEUROLOGICAL EXAMINATION: AAO x 3, no motor/sensory deficits PSYCHIATRIC EXAMINATION: calm, normal affect Patient is 54 years old male with past medical history of hypertension, migraine, Wsnqw-Ephojlpmn-Drrnj syndrome was transferred from [facility] with acute kidney injury. Patient stated that for past 12 months he didn't take any blood pressure medications due to to lack of insurance. For past 3-4 months he has been having increased headache. Yesterday he was in the outpatient clinic and he was found to have abnormal blood test and he was sent ER in [facility]. In ER patient was found to have blood pressure of 151/98, hemoglobin of 7.2, BUN 174 and creatinine 18. Patient was seen by Dr. Hendricks who recommended transfer him to [facility]. When I saw the patient he complains of shortness of breath, he stated he has been having increasing shortness of breath for past 3-4 months. Also patient stated that he has increased leg swelling for past few weeks. Problems (1) STELLA (acute kidney injury) Most likely due to hypertensive nephropathy vs autoimmune diseases vs nephrotic syndrome Patient was noncompliant to his blood pressure medications Dialysis today ANCA, pANCA, cANCA, Hepatitis panel negative (2) Acute anemia Unknown etiology for now Most likely secondary to acute on chronic kidney failure Iron panel did not show low iron Stool for occult blood was negative in [facility]. We will repeat it B12, folate pending Hemoglobin is stable (3) Hypertension Blood pressure currently is under control Continue Norvasc 10 mg daily Carvedilol started Hydralazine IV when necessary with parameters Metabolic acidosis Secondary to uremia Patient received bicarbonate yesterday Dialysis today Secondary hyperparathyroidism Secondary to acute on chronic kidney failure Phoslo started Calcium replaced Atrial fibrillation New-onset Device Sales Consultant team recommended rate control for now with carvedilol Because of his current severe anemia,we will not place him on warfarin at the moment Abnormal EKG Device Sales Consultant team did not support diagnosis of Rtqaw-Ppykkocwy-Djpeb syndrome On 09/19/19 echocardiogram shows features of hypertensive heart disease, including mild left ventricle hypertrophy and grade 1 LV diastolic dysfunction Continue to monitor Diastolic CHF Acute Most likely secondary to hypertension and renal failure Salt restriction I's and O's VS,Fishbone, I+O VS, Fishbone, I+O Laboratory Tests 09/19/19 17:56 09/20/19 00:47 09/20/19 05:05 Vital Signs Date Time Temp Pulse Resp B/P (MAP) Pulse Ox O2 Delivery O2 Flow Rate FiO2 09/20/19 07:59 98.5 61 18 152/93 (112) 99 Room Air 09/19/19 11:35 2 I&O- Last 24 Hours up to 6 AM 09/20/19 05:59 Intake Total 1400 ml Output Total 3200 ml Balance -1800 ml BRIT AC DO September 20, 2019 12:36
[2019-09-20] MEDS: PANTOPRAZOLE 40MG TAB (PROTONIX) PO SCH (12:41)
[2019-09-20] MEDS: CALCITRIOL 0.25 MCG CAP (S0169) PO SCH (12:42)
[2019-09-20] MEDS: CARVedilol 12.5 MG TAB PO SCH ×2 (12:42→20:14)
[2019-09-20 13:03] LABS: HEPATITIS B CORE ANTIBODY IGM NEGATIVE (NEGATIVE)
[2019-09-20] MEDS ORDERED: SLF 3 ML SYR IV PRN (13:15)
[2019-09-20] MEDS: SLF 3 ML SYR IV SCH ×2 (14:00→20:15)
[2019-09-20] MEDS: amLODIPine 10 MG TAB PO SCH (20:15)
--- NOTE | 2019-09-20 22:11 | ECGEPIP ---
[facility] Test Date: 2019-09-19 Pat Name: DHIRAJ GAYLEIGHAM Department: Room: [place] [address] Gender: Male Technology Administrator: HOANG : [id number] Requested By: BRIT AC Order Number: [id number] Reading MD: Lazaro Yanez Measurements Intervals [place] Rate: 111 P: 58 WY: 232 QRS: 10 QRSD: 105 T: 122 QT: 370 QTc: 503 Interpretive Statements Atrial fibrillation with rapid ventricular rate transitioning over to sinus rhythm and a PVC. Nonspecific ST-T abnormalities Electronically Signed on 09-20-2019 22:11:09 EDT by Lazaro Yanez
[2019-09-21] VITALS (8 sets, daily range): BP systolic 142–166; BP diastolic 74–104
[2019-09-21] MEDS: SLF 3 ML SYR IV SCH ×3 (05:06→20:28)
[2019-09-21 05:15] LABS: BASO # 0.1 10^3/uL (0.0-0.2); BASO % 0.9 % (0.0-1.0); EOS # 0.2 10^3/uL (0.0-0.5); EOS % 3.5 % (0.0-3.0); HEMATOCRIT 24.7 % (42.0-52.0); HEMOGLOBIN 8.6 g/dl (13.5-17.5); LYMPH # 1.6 10^3/uL (1.5-5.0); LYMPH % 27.3 % (24.0-44.0); MEAN CORPUSCULAR HEMOGLOBIN 29.9 pg (27.0-33.0); MEAN CORPUSCULAR HGB CONC 34.8 g/dl (32.0-36.5); MEAN CORPUSCULAR VOLUME 85.8 fl (80.0-96.0); MONO # 0.8 10^3/uL (0.0-0.8); NEUTROPHILS # 3.2 10^3/uL (1.5-8.5); NEUTROPHILS % 55.1 % (36.0-66.0); PLATELET COUNT, AUTOMATED 164 10^3/uL (150-450); RED BLOOD COUNT 2.88 10^6/uL (4.30-6.10); WHITE BLOOD COUNT 5.8 10^3/uL (4.0-10.0)
[2019-09-21 05:30] LABS: ALBUMIN 2.8 GM/DL (3.2-5.2); BILIRUBIN,TOTAL 0.5 MG/DL (0.2-1.0); CALCIUM LEVEL 7.4 MG/DL (8.5-10.1); CREATININE FOR GFR 10.8 MG/DL (0.70-1.30); GLOMERULAR FILTRATION RATE 5.4 (>56); MAGNESIUM LEVEL 2.3 MG/DL (1.8-2.4); PHOSPHORUS LEVEL 6.5 MG/DL (2.5-4.9); POTASSIUM SERUM 3.7 MEQ/L (3.5-5.1); TOTAL PROTEIN 5.7 GM/DL (6.4-8.2)
[2019-09-21] MEDS: **hydrALAZINE** 10 MG TAB PO SCH ×2 (06:00→12:52)
[2019-09-21] MEDS: CALCIUM ACETATE 667MG GELCAP PO SCH ×3 (07:55→17:18)
[2019-09-21] MEDS: PANTOPRAZOLE 40MG TAB (PROTONIX) PO SCH (07:55)
[2019-09-21] MEDS: CARVedilol 12.5 MG TAB PO SCH ×2 (07:55→20:28)
[2019-09-21] MEDS: CALCITRIOL 0.25 MCG CAP (S0169) PO SCH (07:56)
[2019-09-21] MEDS ORDERED: METOPROLOL 5 MG/5 ML VIAL IV STA (13:16)
--- NOTE | 2019-09-21 13:24 | IPNPDOC ---
Text Note Date of Service The patient was seen on 09/21/19. NOTE Subjective: No any acute events overnight. Patient tolerated dialysis well. Objective: VITAL SIGNS: Please see below. GENERAL: awake, alert, NAD HEENT: NCAT, anicteric sclera, KEKE NECK: supple, no JVD CARDIOVASCULAR EXAMINATION: S1S2, regular rate/rhythm RESPIRATORY EXAMINATION: CTA b/l, no wheezes/rales/rhonchi ABDOMINAL EXAMINATION: positive bowel sounds x 4, NT EXTREMITIES: no cyanosis, clubbing, edema SKIN: warm, no rashes. NEUROLOGICAL EXAMINATION: AAO x 3, no motor/sensory deficits PSYCHIATRIC EXAMINATION: calm, normal affect Patient is 54 years old male with past medical history of hypertension, migraine, Vcefp-Sncjodjeq-Bbjkv syndrome was transferred from [facility] with acute kidney injury. Patient stated that for past 12 months he didn't take any blood pressure medications due to to lack of insurance. For past 3-4 months he has been having increased headache. Yesterday he was in the outpatient clinic and he was found to have abnormal blood test and he was sent ER in [facility]. In ER patient was found to have blood pressure of 151/98, hemoglobin of 7.2, BUN 174 and creatinine 18. Patient was seen by Dr. Hendricks who recommended transfer him to [facility]. When I saw the patient he complains of shortness of breath, he stated he has been having increasing shortness of breath for past 3-4 months. Also patient stated that he has increased leg swelling for past few weeks. Problems (1) STELLA (acute kidney injury) Most likely due to hypertensive nephropathy vs autoimmune diseases vs nephrotic syndrome Patient was noncompliant to his blood pressure medications Dialysis today ANCA, pANCA, cANCA, Hepatitis panel negative (2) Acute anemia Unknown etiology for now Most likely secondary to acute on chronic kidney failure Iron panel did not show low iron Stool for occult blood was negative in [facility]. We will repeat it B12, folate pending Hemoglobin is stable (3) Hypertension Blood pressure currently is under control Continue Norvasc 10 mg daily Carvedilol started Hydralazine IV when necessary with parameters Metabolic acidosis Secondary to uremia Patient received bicarbonate yesterday Dialysis today Secondary hyperparathyroidism Secondary to acute on chronic kidney failure Phoslo started Calcium replaced Atrial fibrillation New-onset Cert Pharmacy Tech team recommended rate control for now with carvedilol Because of his current severe anemia,we will not place him on warfarin at the moment Lopressor PRN Abnormal EKG Cert Pharmacy Tech team did not support diagnosis of Qqszs-Ykrgxiqbo-Wswtk syndrome On 09/19/19 echocardiogram shows features of hypertensive heart disease, including mild left ventricle hypertrophy and grade 1 LV diastolic dysfunction Continue to monitor Diastolic CHF Acute Most likely secondary to hypertension and renal failure Salt restriction I's and O's VS,Fishbone, I+O VS, Fishbone, I+O Laboratory Tests 09/21/19 04:31 Vital Signs Date Time Temp Pulse Resp B/P (MAP) Pulse Ox O2 Delivery O2 Flow Rate FiO2 09/21/19 13:14 133 151/104 09/21/19 12:44 97.9 18 100 Room Air 09/19/19 11:35 2 I&O- Last 24 Hours up to 6 AM 09/21/19 06:00 Intake Total 1260 ml Output Total 2700 ml Balance -1440 ml BRIT AC DO September 21, 2019 13:24
[2019-09-21] MEDS ORDERED: CARVedilol 12.5 MG TAB PO ONE (13:30)
[2019-09-21] MEDS ORDERED: METOPROLOL 5 MG/5 ML VIAL IV PRN (13:30)
[2019-09-21 15:02] LABS: ALBUMIN 2.8 GM/DL (3.2-5.2); CALCIUM LEVEL 8.6 MG/DL (8.5-10.1); CREATININE FOR GFR 5.19 MG/DL (0.70-1.30); GLOMERULAR FILTRATION RATE 12.5 (>56); MAGNESIUM LEVEL 1.8 MG/DL (1.8-2.4); PHOSPHORUS LEVEL 2.5 MG/DL (2.5-4.9); POTASSIUM SERUM 3.6 MEQ/L (3.5-5.1)
[2019-09-21] MEDS: amLODIPine 10 MG TAB PO SCH (20:28)
[2019-09-22] VITALS (7 sets, daily range): BP systolic 131–176; BP diastolic 80–109
[2019-09-22] MEDS: SLF 3 ML SYR IV SCH ×3 (04:18→21:14)
[2019-09-22 06:17] LABS: BASO # 0.1 10^3/uL (0.0-0.2); BASO % 0.7 % (0.0-1.0); EOS # 0.2 10^3/uL (0.0-0.5); EOS % 3.5 % (0.0-3.0); HEMATOCRIT 24.9 % (42.0-52.0); HEMOGLOBIN 8.4 g/dl (13.5-17.5); LYMPH % 29.8 % (24.0-44.0); MEAN CORPUSCULAR HEMOGLOBIN 29.5 pg (27.0-33.0); MEAN CORPUSCULAR HGB CONC 33.7 g/dl (32.0-36.5); MEAN CORPUSCULAR VOLUME 87.4 fl (80.0-96.0); MONO # 0.9 10^3/uL (0.0-0.8); MONO % 13.7 % (0.0-5.0); NEUTROPHILS # 3.5 10^3/uL (1.5-8.5); NEUTROPHILS % 51.9 % (36.0-66.0); PLATELET COUNT, AUTOMATED 181 10^3/uL (150-450); RED BLOOD COUNT 2.85 10^6/uL (4.30-6.10); WHITE BLOOD COUNT 6.8 10^3/uL (4.0-10.0)
[2019-09-22 06:35] LABS: ALBUMIN 2.7 GM/DL (3.2-5.2); BILIRUBIN,TOTAL 0.4 MG/DL (0.2-1.0); CALCIUM LEVEL 7.8 MG/DL (8.5-10.1); CREATININE FOR GFR 7.66 MG/DL (0.70-1.30); PHOSPHORUS LEVEL 4.5 MG/DL (2.5-4.9); POTASSIUM SERUM 3.7 MEQ/L (3.5-5.1); TOTAL PROTEIN 5.8 GM/DL (6.4-8.2)
[2019-09-22] MEDS: PANTOPRAZOLE 40MG TAB (PROTONIX) PO SCH (07:53)
[2019-09-22] MEDS: CALCITRIOL 0.25 MCG CAP (S0169) PO SCH (07:54)
[2019-09-22] MEDS: CALCIUM ACETATE 667MG GELCAP PO SCH ×3 (07:54→17:37)
[2019-09-22] MEDS: CARVedilol 12.5 MG TAB PO SCH ×2 (07:54→21:14)
--- NOTE | 2019-09-22 08:38 | IPN ---
DATE: 09/20/2019 Mr. Quezada was seen and examined this morning during bedside rounds at dialysis for his morning session. He was resting comfortably. He states he has no complaints, and he slept relatively well last night and tolerated the first session of dialysis yesterday. It was reported overnight that the patient did have an irregular rhythm of possible atrial fibrillation with a heart rate of [address] Yanez was consulted at the time. He was started on carvedilol per Dr. Yanez's recommendations and was not started on anticoagulation because of his end-stage renal disease as well as his anemia. No other events were reported by nursing. Vital signs: Temperature 98.5, pulse 61, respirations 18, blood pressure 152/93 (112), pulse oximetry (ox) 99% on room air. Intake total 1100 mL, output total 3250 mL with a balance of negative 2150 mL. He had 2000 mL removed at dialysis yesterday and weight this morning is 106.1 kg. General: This is a very pleasant 54-year-old male resting comfortably in the dialysis bed. He does not appear to be in acute distress, tolerating dialysis. Alert and oriented times three, appropriately answering questions but falls asleep during physical exam. HEENT: Atraumatic, normocephalic. Trachea is midline. No lymphadenopathy. Permacath in place in the right chest wall, which is currently being accessed for dialysis and is tolerating it well. Cardiovascular: Distant heart sounds. S1, S2 sounds are present with a regular rate and rhythm. No audible murmurs, rubs, or gallops. Currently in sinus rhythm on telemetry. Pitting edema resolved, and no dependent pitting edema noted as well. Pulmonary: Clear to auscultation bilaterally. No audible wheezing, rhonchi or rales. Abdomen: Positive bowel sounds in all four quadrants. Obese. No rebounding or guarding noted. Integumentary: Multiple tattoos bilateral arms. Neurologic: No focal deficits. Psychiatric: Appropriate affect. LABORATORY DATA: WBC 5.6, hemoglobin 8.6, hematocrit 24.5, platelets 149. Chemistry: Sodium 142, potassium 4.2, chloride 111, carbon dioxide 113, anion gap 18, BUN 135, creatinine 15.20, GFR 3.6, fasting glucose 100, phosphorus 9.1, repeated at 1045 hours was 3.5. Magnesium 2.5, calcium 7.0. NEW MEDICATIONS: - metoprolol succinate - carvedilol 12.5 mg twice a day - pantoprazole 40 mg every morning - calcitriol 0.5 mcg daily ASSESSMENT AND PLAN: 1. End-stage renal disease, currently tolerating the second day of dialysis, which was 2-1/2 hours and will remove at least 2.5 liters today with a regular blood flow rate and a normal filter size. Possible cause of his end-stage renal disease is noncompliance with hypertensive medication. Remaining blood work is still pending. Patient and family services (PFS) consult placed for outpatient dialysis set up as well as he will need bilateral mapping of his upper extremities for a fistula and for long-term dialysis. Order has been placed. 2. Anemia in the setting of end-stage renal disease. Hemoglobin responded appropriately to two units of packed red blood cells (RBCs) to 8.6 this morning. Continue with Aranesp after dialysis. His stool occult in house was positive for blood. Will start him on pantoprazole as well. 3. Hypertensive heart disease. Will continue with his metoprolol 10 mg. His metoprolol 50 mg has been discontinued by Dr. Yanez, and he has been switched to carvedilol for more cardioprotective. 4. High anion gap metabolic acidosis. Continues to improve with dialysis. Will continue to monitor. 5. Paroxysmal atrial fibrillation. Last night after his dialysis session, the patient did go into paroxysmal atrial fibrillation with a rapid rate of [address] Yanez was consulted and switched his metoprolol to carvedilol. At the current time, because he has end-stage renal disease, he is not really a candidate for oral anticoagulation and do not recommend warfarin because of his anemia and his stool occult being positive. At the current time, we will monitor on telemetry and follow Dr. Yanez's recommendations and get his underlying kidney disease stable with dialysis. 6. Congestive heart failure with diastolic dysfunction. Possibly secondary to longstanding uncontrolled hypertension. 7. Chronic kidney disease with mineral bone disease. Continue with PhosLo as well as calcitriol. Predict the PTH level will improve with multiple sessions of dialysis. 8. Hypocalcemia in the setting of end-stage renal disease. Continue with calcitriol 0.5 mcg daily.
[2019-09-22] MEDS ORDERED: CARVedilol 12.5 MG TAB PO ONE (10:30)
--- NOTE | 2019-09-22 12:11 | IPNPDOC ---
Text Note Date of Service The patient was seen on 09/22/19. NOTE Subjective: No any acute events overnight. Patient doesn't have tachycardia, sinus rhythm overnight and in the morning. Patient tolerated dialysis well. Objective: VITAL SIGNS: Please see below. GENERAL: awake, alert, NAD HEENT: NCAT, anicteric sclera, KEKE NECK: supple, no JVD CARDIOVASCULAR EXAMINATION: S1S2, regular rate/rhythm RESPIRATORY EXAMINATION: CTA b/l, no wheezes/rales/rhonchi ABDOMINAL EXAMINATION: positive bowel sounds x 4, NT EXTREMITIES: no cyanosis, clubbing, edema SKIN: warm, no rashes. NEUROLOGICAL EXAMINATION: AAO x 3, no motor/sensory deficits PSYCHIATRIC EXAMINATION: calm, normal affect Patient is 54 years old male with past medical history of hypertension, migraine, Zcodj-Jmrseojdr-Cgsll syndrome was transferred from [facility] with acute kidney injury. Patient stated that for past 12 months he didn't take any blood pressure medications due to to lack of insurance. For past 3-4 months he has been having increased headache. Yesterday he was in the outpatient clinic and he was found to have abnormal blood test and he was sent ER in [facility]. In ER patient was found to have blood pressure of 151/98, hemoglobin of 7.2, BUN 174 and creatinine 18. Patient was seen by Dr. Hendricks who recommended transfer him to [facility]. When I saw the patient he complains of shortness of breath, he stated he has been having increasing shortness of breath for past 3-4 months. Also patient stated that he has increased leg swelling for past few weeks. Problems (1) STELLA (acute kidney injury) Most likely due to hypertensive nephropathy vs autoimmune diseases vs nephrotic syndrome Patient was noncompliant to his blood pressure medications Dialysis will be setup in the outpatient settings ANCA, pANCA, cANCA pending, Hepatitis panel negative (2) Acute anemia Unknown etiology for now Most likely secondary to acute on chronic kidney failure Iron panel did not show low iron Stool for occult blood was negative in [facility]. Repeated stool positive for occult blood. PPI. 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 recommended rate control for now with carvedilol Because of his current severe anemia,we will not place him on warfarin at the moment Lopressor PRN Abnormal EKG Assembler Product team did not support diagnosis of Rvnle-Laaouddbq-Vbdxx syndrome On 09/19/19 echocardiogram shows features of hypertensive heart disease, including mild left ventricle hypertrophy and grade 1 LV diastolic dysfunction Continue to monitor Diastolic CHF Acute 09/22/19 BNP continues to be elevated around 10,000 Most likely secondary to hypertension and renal failure Salt restriction Continue dialysis I's and O's Hypocalcemia Secondary to end-stage renal diseases Replace with calcitriol VS,Fishbone, I+O VS, Fishbone, I+O Laboratory Tests 09/21/19 14:16 09/22/19 05:36 Vital Signs Date Time Temp Pulse Resp B/P (MAP) Pulse Ox O2 Delivery O2 Flow Rate FiO2 09/22/19 11:31 98.3 69 18 138/87 (104) 99 Room Air 09/19/19 11:35 2 I&O- Last 24 Hours up to 6 AM 09/22/19 06:00 Intake Total 900 ml Output Total 2050 ml Balance -1150 ml BRIT AC DO September 22, 2019 12:11
--- NOTE | 2019-09-22 16:02 | IPN ---
DATE: 09/21/2019 Mr. Shen is seen this morning during hemodialysis. This is his dialysis number three. He has a right upper chest PermCath which is being used for dialysis. The patient is felt to be end-stage renal disease in view of his long history of chronic kidney disease and hypertension. His serum creatinine was about 2.5 in May 2018 and kidneys are echogenic on ultrasound without any significant chance of recovery of kidney function. He will remain dialysis dependent. PHYSICAL EXAMINATION: Temperature 98.2 degrees Fahrenheit, heart rate 68 per minute and respiratory rate 18 per minute. Blood pressure 160/90 mmHg and oxygen saturation 98% on room air. Head is atraumatic. Neck: Supple and without JVD or thyroid enlargement. Heart sounds regular and lungs clear to auscultation. Abdomen soft and nontender and bowel sounds normal. Extremities without any cyanosis or clubbing. He has no peripheral edema at present. Neurologically, he is awake, alert and oriented x3. Today's labs show WBC count 5.8, hemoglobin 8.6 and hematocrit 24.7. Sodium 140, potassium 3.7, CO2 18, BUN 82 and creatinine 10.8. Glucose 98 and calcium 7.4. Phosphorus down to 6.5. PROBLEMS: 1: End-stage renal disease. The patient has been dialyzed twice and today is his dialysis number three. 3.. He is tolerating dialysis well. He will continue with outpatient dialysis after discharge. 4. Metabolic acidosis. His acidosis gradually improving and likely to resolve completely after dialysis today. There is no need for sodium bicarbonate at this point. 5. Anemia. His anemia is slightly improved. The patient has received Aranesp and we will also give him intravenous iron after discharge as an outpatient. At this point, there is no need for a transfusion. 6. Hypertension. I would suggest to avoid hydralazine and continue with amlodipine and Carvedilol. We can also consider adding ARPAN inhibitor or angiotensin receptor steven if needed. DISPOSITION: The patient has improved significantly since admission. We are waiting for outpatient dialysis arrangements; and as soon as does get a finalized, he can probably be discharged and be dialyzed as an outpatient next week.
[2019-09-22] MEDS: amLODIPine 10 MG TAB PO SCH (21:14)
[2019-09-23] VITALS: BP 135/90
[2019-09-23 04:00] VITALS: BP 158/91
[2019-09-23 04:28] LABS: BASO # 0.1 10^3/uL (0.0-0.2); BASO % 1.1 % (0.0-1.0); EOS # 0.2 10^3/uL (0.0-0.5); EOS % 3.4 % (0.0-3.0); HEMATOCRIT 23.5 % (42.0-52.0); HEMOGLOBIN 7.8 g/dl (13.5-17.5); MEAN CORPUSCULAR HEMOGLOBIN 29.4 pg (27.0-33.0); MEAN CORPUSCULAR HGB CONC 33.2 g/dl (32.0-36.5); MEAN CORPUSCULAR VOLUME 88.7 fl (80.0-96.0); MONO # 0.7 10^3/uL (0.0-0.8); MONO % 10.4 % (0.0-5.0); NEUTROPHILS # 3.6 10^3/uL (1.5-8.5); NEUTROPHILS % 54.8 % (36.0-66.0); PLATELET COUNT, AUTOMATED 186 10^3/uL (150-450); RED BLOOD COUNT 2.65 10^6/uL (4.30-6.10); WHITE BLOOD COUNT 6.6 10^3/uL (4.0-10.0)
[2019-09-23 04:57] LABS: ALBUMIN 2.6 GM/DL (3.2-5.2); BILIRUBIN,TOTAL 0.3 MG/DL (0.2-1.0); CALCIUM LEVEL 7.6 MG/DL (8.5-10.1); CREATININE FOR GFR 9.83 MG/DL (0.70-1.30); MAGNESIUM LEVEL 1.9 MG/DL (1.8-2.4); PHOSPHORUS LEVEL 4.8 MG/DL (2.5-4.9); POTASSIUM SERUM 3.7 MEQ/L (3.5-5.1); TOTAL PROTEIN 5.3 GM/DL (6.4-8.2)
[2019-09-23] MEDS: SLF 3 ML SYR IV SCH (05:58)
[2019-09-23 08:00] VITALS: BP 160/90
[2019-09-23] MEDS: CALCIUM ACETATE 667MG GELCAP PO SCH (08:07)
[2019-09-23] MEDS: PANTOPRAZOLE 40MG TAB (PROTONIX) PO SCH (08:07)
[2019-09-23] MEDS: CALCITRIOL 0.25 MCG CAP (S0169) PO SCH (08:07)
[2019-09-23 08:08] VITALS: BP 158/91
[2019-09-23] MEDS: CARVedilol 12.5 MG TAB PO SCH (08:08)
--- NOTE | 2019-09-23 10:14 | IPNPDOC ---
Text Note Date of Service The patient was seen on 09/23/19. NOTE SUBJECTIVE: Patient is a 54 year old male, PMHx significant for WPW, CKD, HTN, migraines who was transferred from [facility] on 09/18/19 after being found to have a severe STELLA. Per admission note, Pt shared that he had not been taking his BP medication for over 1 year 2/2 to troubles with insurance coverage. Pt was seen by his PCP on 09/17/19 for increasing headache over the last 3-4 months. He was found to have abnormal blood work and was sent to the [facility] ED for further evaluation. Pt was then found to have BP of 151/98, BNP of 20,136, Hgb of 7.2, BUN/Cr of 174/18 with GFR of 3. He was subsequently transferred to [facility] for further nephrology management. Since admission, patient has had a permacath placed and undergone hemodialysis x3. He has received 2 units of pRBCs for anemia with suspicion of underlying GI bleed as pt was found to have heme-positive stool. Pt has had a number of episodes of paroxysm atrial fibrillation during hospitalization, acutely controlled with 5 mg of Lopressor. Pt is currently rate controlled with Carv edilol. Anticoagulation has been been held 2/2 to low H/H and heme-positive stool. BP has been managed with previously mentioned Carvedilol and amlodipine. Yesterday, patient had a recurrent bout of atrial fibrillation. His carvedilol was increased to 25 mg. This morning, patient seems to be in good spirits and looking forward to discharge later today. No episodes of recurrent atrial fibrillation. He denies any chest pain, palpitations, SOB or HOOPER. OBJECTIVE: Vitals: Temp of 98.1, HR of 74, RR of 16, BP of 160/90, SpO2 of 97% on RA. Weight: 106.3 kg, up from 104 kg on 09/22/19 Net Positive 670 ml yesterday, positive 540 ml thus far today. Examination: General: Pt interviewed and examined in his hospital room. He was found to be resting comfortably in bed watching television. He is in NAD, alert and oriented x3. He is able to recall his medical history and actively participate in his care. CV: Regular rate and rhythm. No murmurs appreciated. No JVD Lungs: Clear to auscultation, without wheezing, rales or rhonchi Abd: Soft, nontender, nondistended, no rigidity or guarding. No appreciable masses Extremities: No edema or swelling, no bruising, no calve-tenderness. Skin: Laboratory: CBC: WBC of 6.6, H/H of 7.8/23.5 CMP: Lytes WNL, BUN/Cr of 44/9.83 Pro-BNP of 16,265 on 09/21/19 Echocardiogram (09/19/19): Mild concentric left ventricle hypertrophy. Normal LV wall motion and thickening. Normal LV systolic function. Grade 1 LV diastolic dysfunction with mild dilation of the aortic root at the level of the sinus Valsalva. Suggestive of mild elevation of pulmonary artery systolic pressure. CXR (09/19/19): No acute cardiopulmonary disease ASSESSMENT/PLAN: Patient is a 54 year old male, recently diagnosed with ESRD, HD-dependent, who was found to have HTN heart disease and paroxysmal atrial fibrillation. #Paroxysmal Atrial Fibrillation -Carvedilol for rate control and to aid in BP management -Dose increased from 12.5 to 25 yesterday following recurrent episode of atrial fibrillation. No episodes since. -Rate of 74 this morning. -JESSICA-VASC of 2, HTN and CHF. Despite findings, suggestion to hold anticoagulat ion given severe anemia and positives fecal occult. #HTN -Currently controlled -Carvedilol 25 BID and amlodipine 10 mg QHS -Consider addition of ARPAN-inhibitor for further control as patient continues to remain hypertensive. #ESRD, Hemodialysis Dependent -Close monitoring by Nephrology -Suspect 2/2 to uncontrolled HTN -S/P HD x3, plan for outpatient HD upon D/C #Hypertensive Heart Disease, Uwjcx-cy-eeckroj HFpEF -Echo performed during hospitalization shows grade 1 LV diastolic dysfunction and mild left ventricle hypertrophy #Elevated BNP -Improving 2/2 to dialysis #Abnormal EKG -Uncertainty regarding prior diagnosis of WPW following review of most recent EKG CODE STATUS: Full Code DISPOSITION: Likely discharge today pending outpatient dialysis scheduling Kat HOSKINS, I+O VSKat, I+O Laboratory Tests 09/23/19 04:15 Vital Signs Date Time Temp Pulse Resp B/P (MAP) Pulse Ox O2 Delivery O2 Flow Rate FiO2 09/23/19 08:08 83 158/91 09/23/19 08:00 98.1 16 97 Room Air 5/28/20 11:35 2 I&O- Last 24 Hours up to 6 AM 09/23/19 06:00 Intake Total 910 ml Output Total 450 ml Balance 460 ml GME ATTESTATION GME ATTESTATION My faculty preceptor for this patient encounter was physically present during the encounter and was fully available. All aspects of the patient interview, examination, medical decision making process, and medical care plan development were reviewed and approved by the faculty preceptor. The faculty preceptor is aware and concurs with the plan as stated in the body of this note and will attest to such by his/her cosignature. CHAITANYA MOULTON DO Sep 23, 2019 10:14
[2019-09-23] MEDS ORDERED: CALC1CAP31 PO (10:18)
[2019-09-23] MEDS ORDERED: PANT40TA3 PO (10:18)
[2019-09-23] MEDS ORDERED: CARV12.5 PO (10:18)
[2019-09-23 10:38] LABS: FOLATE 4.4 NG/ML (>5.4)
--- NOTE | 2019-09-23 10:40 | IPN ---
DATE OF VISIT: 09/22/2019 Mr. Quezada is seen this morning on his bedside. Shortly after finishing dialysis treatment yesterday, he went into atrial fibrillation again with heart rate in the 130s. He was given one dose of intravenous metoprolol 5 mg and another dose of oral carvedilol 12.5 mg and he did convert back to sinus rhythm. He has remained in sinus rhythm through the night. He denies any dyspnea or chest pain at present. He has no nausea, vomiting, fever or chills. On physical examination, temperature 98 degrees Fahrenheit, heart rate 76 per minute and respiratory rate 18 per minute. Blood pressure is now down to 133/95 mmHg while earlier it was 168/89 mmHg. His head is atraumatic. Neck is supple and without jugular venous distention (JVD) or thyroid enlargement. Heart sounds are regular now. Lungs sound clear to auscultation. Abdomen is soft and nontender. Bowel sounds are normal. Extremities are without any cyanosis or clubbing. Neurologically, he is awake, alert and oriented x3. Today's labs show WBC count 6.8, hemoglobin 8.4 and hematocrit 24.9. Sodium 141, potassium 3.7, CO2 30, BUN 36 and creatinine 7.66. Calcium level is 7.8 and phosphorus 4.5. Magnesium level is 2.0. PROBLEMS: 1. Recurrent atrial fibrillation. Most likely related to volume changes and central line in place for dialysis. He is back in sinus rhythm and I am going to increase his carvedilol dose to 25 mg twice a day. He will be given one extra dose of carvedilol 12.5 mg this morning. 2. End-stage renal disease. The patient has end-stage renal disease and will require long-term dialysis. We are waiting for outpatient dialysis facility to accept him. At this point, there is no emergent need for dialysis today as he was dialyzed just yesterday. 3. Hypertension. Blood pressure seems to be improving and increased dose of carvedilol is likely to help. Hydralazine has been stopped. 4. Anemia. The patient has been receiving Aranesp with dialysis. His anemia is stable at this point and will be managed as an outpatient with dialysis. 5. Dialysis access. The patient does not have an AV fistula as he was not following with nephrology prior to this admission. We will get an ultrasound of his extremities for vein mapping and then refer him to vascular surgery for an AV fistula creation. 6. Disposition. At this point, the patient is stable but not quite ready for discharge as we are still waiting for outpatient dialysis arrangements. We would also like to monitor him for another 24 hours for recurrent atrial fibrillation.
[2019-09-23 12:00] VITALS: BP 161/96
--- NOTE | 2019-09-23 12:01 | REP ---
BILATERAL UPPER EXTREMITY DUPLEX DOPPLER ARTERIAL AND VENOUS ULTRASOUND: Real-time ultrasound evaluation and duplex Doppler interrogation of the bilateral upper extremity arterial venous systems is performed for AV fistula mapping. PermaCath is seen in the right subclavian vein. There is no deep vein thrombosis bilaterally. On the right, basilic vein measures 7 mm at the upper limits, 6 mm at the lower humerus, 3 mm in the upper forearm and 2 mm in the lower forearm. Median decubital vein measures 5 mm. Cephalic vein measures 5 mm at the upper humerus, 4 mm at the lower humerus, 3 mm in the upper forearm and 2 mm in the lower forearm. Right upper extremity arterial system demonstrates normal flow velocities and triphasic waveforms. Right axillary artery measures 9 mm, brachial artery 6 mm, radial artery 3 mm and ulnar artery 2 mm. On the left basilic vein measures 5 mm at the level of the humerus, 4 mm in the upper forearm and 1 mm in the lower forearm. Median cubital vein measures 4 mm. Left cephalic vein measures 4 mm at the level of the humerus and 3 mm in the forearm. Left upper extremity arterial structures demonstrates normal flow velocities with triphasic waveforms, axillary artery measures 8 mm, brachial artery 6 mm, radial artery 3 mm and ulnar artery 2 mm. Electronically Signed by Alfa Bo MD 09/24/2019 01:01 P
[2019-09-23 15:07] LABS: ANCA-ATYPICAL <1:20 titer (Neg:<1:20); ANTI-GLOMERULAR BASEMENT MEMB 3 units (0-20); ANTINUCLEAR ANTIBODIES DIRECT Negative (Negative); CYTOPLASMIC NEUTROP AB ANCA-C <1:20 titer (Neg:<1:20); PERINUCLEAR AB ANCA-P <1:20 titer (Neg:<1:20)
--- NOTE | 2019-09-23 15:23 | DS.PDOC ---
Discharge Summary General Date of Admission September 18, 2019 at 16:40 Date of Discharge 09/23/19 Discharge Summary PROCEDURES PERFORMED DURING STAY: Catheter fistula placement ADMITTING DIAGNOSES: WILI (acute kidney injury) Acute anemia Hypertension Metabolic acidosis Secondary hyperparathyroidism Atrial fibrillation Hypocalcemia Diastolic CHF Abnormal EKG DISCHARGE DIAGNOSES: WILI (acute kidney injury) Acute anemia Hypertension Metabolic acidosis Secondary hyperparathyroidism Atrial fibrillation Hypocalcemia Diastolic CHF Abnormal EKG COMPLICATIONS/CHIEF COMPLAINT: Acute Renal Failure. HISTORY OF PRESENT ILLNESS: Patient is 54 years old male with past medical history of hypertension, migraine, Gbgik-Nnyddyoiz-Awfce syndrome was transferred from [facility] with acute kidney injury. Patient stated that for past 12 months he didn't take any blood pressure medications due to to lack of insurance. For past 3-4 months he has been having increased headache. Yesterday he was in the outpatient clinic and he was found to have abnormal blood test and he was sent ER in [facility]. In ER patient was found to have blood pressure of 151/98, hemoglobin of 7.2, BUN 174 and creatinine 18. Patient was seen by Dr. Hendricks who recommended transfer him to [facility]. When I saw the patient he complains of shortness of breath, he stated he has been having increasing shortness of breath for past 3-4 months. Also patient stated that he has increased leg swelling for past few weeks. HOSPITAL COURSE: The following issue addressed 1) WILI (acute kidney injury) Most likely due to hypertensive nephropathy vs autoimmune diseases vs nephrotic syndrome Patient was noncompliant to his blood pressure medications Dialysis will be setup in the outpatient settings ANCA, pANCA, cANCA unremarkable, Hepatitis panel negative (2) Acute anemia Most likely secondary to acute on chronic kidney failure and GI blood loss anemia Iron panel did not show low iron Stool for occult blood was negative in [facility]. Repeated stool positive for occult blood. PPI. Patient will need GI consult in the outpatient settings Continue with Aranesp after dialysis Follow-up with GI in the outpatient settings (3) Hypertension Blood pressure currently is under control Continue Norvasc 10 mg daily Carvedilol started Metabolic acidosis Secondary to uremia Patient received bicarbonate yesterday Dialysis today Secondary hyperparathyroidism Secondary to acute on chronic kidney failure Phoslo started Calcium replaced Atrial fibrillation New-onset Hand Braille Transcriber team recommended rate control for now with carvedilol Because of his current severe anemia,we will not place him on warfarin at the moment Lopressor PRN Follow-up with dry cell battery assembler Abnormal EKG Hand Braille Transcriber team did not support diagnosis of Rgurq-Nhhigario-Snoaf syndrome On 09/19/19 echocardiogram shows features of hypertensive heart disease, including mild left ventricle hypertrophy and grade 1 LV diastolic dysfunction Diastolic CHF Acute 09/22/19 BNP continues to be elevated around 10,000 Most likely secondary to hypertension and renal failure Salt restriction Continue dialysis I's and O's Hypocalcemia Secondary to end-stage renal diseases Replace with calcitriol DISCHARGE MEDICATIONS: Please see below. ALLERGIES: Please see below. PHYSICAL EXAMINATION ON DISCHARGE: VITAL SIGNS: Please see below. GENERAL: awake, alert, NAD HEENT: NCAT, anicteric sclera, KEKE NECK: supple, no JVD CARDIOVASCULAR EXAMINATION: S1S2, regular rate/rhythm RESPIRATORY EXAMINATION: CTA b/l, no wheezes/rales/rhonchi ABDOMINAL EXAMINATION: positive bowel sounds x 4, NT EXTREMITIES: no cyanosis, clubbing, edema SKIN: warm, no rashes. NEUROLOGICAL EXAMINATION: AAO x 3, no motor/sensory deficits PSYCHIATRIC EXAMINATION: calm, normal affect LABORATORY DATA: Please see below. IMAGING: [facility] NAME: DHIRAJ JACOBS DATE OF : 1965 BUSINESS NUMBER: [id number] AGE: 54 SEX: M REPORT #: [id number] [facility] TECHNOLOGIST: QUIN DOCTOR: BRIT AC DO Ordered for Date&Time: 09/18/19 1807 cc: [~ rep ct ivnm] Service Date&Time: 09/18/19 2304 This report is in Signed status. Interpretation performed by [facility]. Thank you for having your radiology procedures performed at [facility] RADIOLOGY REPORT Date&Time printed: [~ rep prt dt last] [~ rep prt tm last] Page 2 of [address] [id number] RADIOLOGY REPORT This report is in Signed status. Interpretation performed by [facility]. Thank you for having your radiology procedures performed at [facility] RADIOLOGY REPORT Date&Time printed: [~ rep prt dt last] [~ rep prt tm last] Page 1 of 2 Exam: US Retroperitoneal Limited, Kidneys Exam date and time: 09/18/2019 11:04 PM Age: 54 years old Clinical indication: Abnormal findings; Abnormal lab test; Other: Wili; Additional info: Acute kidney injury TECHNIQUE: Imaging protocol: Real-time ultrasound of the retroperitoneum with image documentation. Examination was focused on the kidneys. COMPARISON: No relevant prior studies available. FINDINGS: Right kidney: The right kidney measures 11.4 cm in its cephalocaudad dimension and 4.3 x 4.1 cm in diameter. The parenchyma is echogenic with no mass, cyst or hydronephrosis. Left kidney: The left kidney measures 9.2 cm in its cephalocaudad dimension and 4.4 x 4.3 cm in diameter. The parenchyma is echogenic with no mass, cyst or hydronephrosis. Bladder: The urinary bladder is incompletely distended but appear grossly unremarkable. IMPRESSION: 1. Echogenic kidneys bilaterally consistent with medical renal disease. 2. Otherwise negative renal sonogram. No hydronephrosis. Electronically signed by: Sly Mata On 09/18/2019 23:14:07 PM DD: SLY MATA MD 09/18/192303 DT: LELE 09/18/192313 DS: BRENT 09/18/192313 [~ rep ct labl] PROGNOSIS: Fair ACTIVITY: [As tolerated]. DIET: Cardiac DISPOSITION: 01 Home, Self-Care. DISCHARGE INSTRUCTIONS: Continue dialysis ITEMS TO FOLLOWUP ON ON OUTPATIENT: Follow-up with PCP, GI, single spindle screw machine operator and dry cell battery assembler DISCHARGE CONDITION: [Stable]. TIME SPENT ON DISCHARGE: Greater than 20 minutes. Vital Signs/I&Os Vital Signs Date Time Temp Pulse Resp B/P (MAP) Pulse Ox O2 Delivery O2 Flow Rate FiO2 09/23/19 12:00 97.5 71 16 161/96 (117) 99 Room Air 09/19/19 11:35 2 I&O- Last 24 Hours up to 6 AM 09/23/19 05:59 Intake Total 910 ml Output Total 450 ml Balance 460 ml Laboratory Data Labs 24H Laboratory Tests 2 09/23/19 04:15: Immature Granulocyte % (Auto) 0.3, Neutrophils (%) (Auto) 54.8, Lymphocytes (%) (Auto) 30.0, Monocytes (%) (Auto) 10.4H, Eosinophils (%) (Auto) 3.4H, Basophils (%) (Auto) 1.1H, Neutrophils # (Auto) 3.6, Lymphocytes # (Auto) 2.0, Monocytes # (Auto) 0.7, Eosinophils # (Auto) 0.2, Basophils # (Auto) 0.1, Nucleated Red Blood Cells % (auto) 0.9H, Anion Gap 9, Glomerular Filtration Rate 6.0L, Calcium Level 7.6L, Phosphorus Level 4.8, Magnesium Level 1.9, Total Bilirubin 0.3, Asp artate Amino Transf (AST/SGOT) 14, Alanine Aminotransferase (ALT/SGPT) 18, Alkaline Phosphatase 63, Total Protein 5.3L, Albumin 2.6L, Albumin/Globulin Ratio 1.0 CBC/BMP Laboratory Tests 09/23/19 04:15 Microbiology Microbiology 09/18/19 Stool Occult Blood (ADELINE) - Final, Complete Discharge Medications Scheduled Amlodipine Besylate (Amlodipine Besylate) 10 Mg Tablet, 10 MG PO QHS, (Reported) Calcitriol (Calcitriol) 0.25 Mcg Capsule, 0.5 MCG PO DAILY Carvedilol (Carvedilol) 12.5 Mg Tablet, 25 MG PO BID Pantoprazole Sodium (Pantoprazole Sodium) 40 Mg Tablet.dr, 40 MG PO QAM Allergies Coded Allergies: No Known Allergies (Unverified , 09/18/19) BRIT AC DO Sep 23, 2019 15:22
--- NOTE | 2019-09-24 07:32 | IPN ---
DATE OF SERVICE: 09/23/2019 Mr. Quezada was seen and examined this morning during bedside rounds. He was sitting up comfortably in the bed and has no complaints today. He states he is feeling really well this morning and slept very well last night. He has been tolerating his dialysis sessions very well and would like to go home. No overnight events were reported by nursing or telemetry. PHYSICAL EXAMINATION: Vitals: Temperature 98.1, pulse 74 - regular, respirations 16, blood pressure 160/90 (113), pulse oximetry (ox) 97% on room air. Intake total 1270 mL, output total 600 mL with a balance of positive 670 mL. Last dialysis session was on 09/21/2019 where he had 1.5 liters removed. Weight today is 106.3 kg. General: This is a very pleasant 54-year-old male who is sitting up in bed and does not appear in acute distress and appropriately answering questions. HEENT: Atraumatic, normocephalic. Pupils equal round and reactive. Neck: Supple. No jugular venous distention (JVD) is noted. Heart sounds regular. No audible murmurs, rubs or gallops. Lungs clear to auscultate bilaterally. No audible wheezing, rhonchi or rales. Abdomen soft and nontender. Extremities: No lower extremity edema. Neurologic: No focal deficits noted. LABORATORIES: Hematology: WBC 6.6, hemoglobin 7.8, hematocrit 23.5, platelets 186. Chemistry: Sodium 139, potassium 3.7, chloride 102, carbon dioxide 28, anion gap 9, BUN 44, creatinine 9.83, fasting glucose 99, calcium 7.6, phosphorus 4.8, magnesium 1.9. ZANE, P-ANCA, C-ANCA are currently pending, as well as GBM antibodies. Urine total protein 24 hours 1846. Urine total protein 129.6. ASSESSMENT AND PLAN: 1. End-stage renal disease. Will require long time dialysis, probably secondary to his noncompliant hypertensive heart disease. His outpatient dialysis has been set up. He will be Monday, , Monday and his first appointment will be 8:00 a.m. at the dialysis center. 2. Recurrent atrial fibrillation. Currently in sinus rhythm. His carvedilol dose is 2 mg twice a day which he is tolerating very well, he is staying in sinus rhythm. It was possibly related to volume changes from dialysis. 3. Hypertension. Currently improving with the carvedilol. He will be discharged with hydralazine outpatient. 4. Anemia. He will continue with Aranesp with dialysis outpatient and will be followed up per dialysis protocol. 5. Dialysis access. Order for vein mapping for his extremities for AV fistula has been placed. He will need an outpatient referral to vascular surgery for an AV fistula creation. DISPOSITION: The patient is stable from a nephrology standpoint and has a dialysis chair waiting for him. His first appointment is tomorrow morning at 8:00 a.m., which the patient was informed of and he can be discharged.
== END 2019-09-23 12:25 | disposition home or self-care (01) | DRG 469 ==
LOC: M PCU 16:40
PROVIDERS: ADMIT Internal Medicine; ATTEND Internal Medicine
PROC: 30233N1 Transfusion of Nonautologous Red Blood Cells into Peripheral Vein, Percutaneous Approach (ICD-10-PCS; 2019-09-18)
PROC: 0JH63XZ Insertion of Tunneled Vascular Access Device into Chest Subcutaneous Tissue and Fascia, Percutaneous Approach (ICD-10-PCS; 2019-09-19)
PROC: B518ZZA Fluoroscopy of Superior Vena Cava, Guidance (ICD-10-PCS; 2019-09-19)
PROC: 5A1D70Z Performance of Urinary Filtration, Intermittent, Less than 6 Hours Per Day (ICD-10-PCS; 2019-09-19)
PROC: 02HV33Z Insertion of Infusion Device into Superior Vena Cava, Percutaneous Approach (ICD-10-PCS; principal; 2019-09-19 11:00)
DX: N17.9 Acute kidney failure, unspecified (principal); I50.33 Acute on chronic diastolic (congestive) heart failure; E87.2 Acidosis; E83.51 Hypocalcemia; I48.0 Paroxysmal atrial fibrillation; G43.909 Migraine, unspecified, not intractable, without status migrainosus; I13.2 Hypertensive heart and chronic kidney disease with heart failure and with stage 5 chronic kidney disease, or end stage renal disease; T46.5X6A Underdosing of other antihypertensive drugs, initial encounter; Z91.120 Patient's intentional underdosing of medication regimen due to financial hardship; Z79.899 Other long term (current) drug therapy; D63.1 Anemia in chronic kidney disease; R19.7 Diarrhea, unspecified; Z87.891 Personal history of nicotine dependence; Z99.2 Dependence on renal dialysis; Z91.14 Patient's other noncompliance with medication regimen; R94.31 Abnormal electrocardiogram [ECG] [EKG]; N18.6 End stage renal disease; N25.81 Secondary hyperparathyroidism of renal origin

== ENCOUNTER → 2019-10-01 | Outpatient (CLI) | payer BC ==
[~2019-10-01] MED LIST: AMLO10TA5 PO; CALC1CAP31 PO; CARV12.5 PO; ISOVUE-300 61% 50ML VIAL As Ordered ONE; LIDOCAINE 1% MDV 20ML VIAL As Ordered ONE; LIDOCAINE W/EPINEPHRINE 1% 20ML VIAL As Ordered ONE; METO1TAB7 PO; MIDAZOLAM INJ 2MG/2ML VIAL (J2250 PER 1MG) As Ordered ONE; PANT40TA3 PO; ceFAZolin 1GM VIAL (J0690 PER 500MG) As Ordered ONE; fentaNYL 100 MCG/2 ML INJECTION (J3010) As Ordered ONE
--- NOTE | 2019-10-01 15:28 | ROOPDOC ---
[facility] Report Of Operation Report of Operation DATE OF PROCEDURE: 10/01/19 PREPROCEDURE DIAGNOSES: End-stage renal disease with significant bleeding right IJ PermCath at dialysis today POSTPROCEDURE DIAGNOSES: Same PROCEDURE: Removal right IJ PermCath SURGEON: Cristian Johnson MD ANESTHESIA: None. INDICATION FOR PROCEDURE: This is a very pleasant 54-year-old patient with renal failure requiring dialysis, who experienced significant bleeding from his right IJ PermCath for dialysis today. We were consulted for replacement of the PermCath. Risks benefits alternatives to removal of his right IJ PermCath were explained and he is agreeable to proceed. Informed consent was obtained. REPORT OF OPERATION: The patient's right neck and chest were prepped and draped in a sterile fashion, including the external portion of the catheter. A timeout was performed. The suture securing the catheter to the chest wall were ligated and removed. We then used blunt dissection to loosen the cough from the subcutaneous tissue and pressure was held at the jugular access site in the catheter was removed. The entire catheter was intact. After inspection it was noted that the entire cuff and tips were intact and no portion was left behind. She was held at the jugular access site for 10 minutes and sterile dressings were applied. The patient was then monitored and will be taken directly to the angiographic suite for placement of a new PermCath. ESTIMATED BLOOD LOSS: Approximately 1 mL. COMPLICATIONS: None. PLAN: Will monitor patient for 20-30 minutes post removal of PermCath. We will then proceed to the OR for placement of a new PermCath through a different tunnel to minimize risk of infection. He did very well with a PermCath removal, and is agreeable to proceed with PermCath placement. We appreciate the upper change participate in the care of this patient. CRISTIAN JOHNSON MD Oct 01, 2019 15:28
[2019-10-01 16:35] VITALS: BP 173/103
--- NOTE | 2019-10-03 09:09 | ROOPDOC ---
[facility] Report Of Operation Report of Operation DATE OF PROCEDURE: 10/01/19 PREPROCEDURE DIAGNOSES: Renal failure requiring replacement access for dialysis POSTPROCEDURE DIAGNOSES: Same PROCEDURE: 1. Ultrasound-guided access right internal jugular vein 2. Placement of a 23 cm tunneled right IJ PermCath SURGEON: Cristian Johnson MD ANESTHESIA: Local anesthesia 20 mL lidocaine with epinephrine. Moderate intravenous conscious sedation was supervised by Dr. Johnson. The patient was independently monitored by registered nurse assigned to the Department of radiology using automated blood pressure, EKG, and pulse oximetry. The detailed sedation record is permanently stored in the hospital information system. The following is a brief sedation record: Start time 14:48, stop time 15:03, Versed 1 mg IV, fentanyl 50 g IV, Ancef 1 g IV. INDICATION FOR PROCEDURE: This is a very pleasant 54-year-old patient with renal failure who had a right IJ catheter placed by Dr. Adan in the recent past, and the patient developed significant bleeding during his dialysis treatment earlier today. He requires a replacement access. We discussed the risks benefits and alternatives to a right jugular PermCath removal and a right jugular PermCath placement. The patient was agreeable to proceed. Informed consent was obtained. His right IJ PermCath was removed earlier prior to this procedure. INTERPRETATION: 1. The catheter is in good position with the tips freely mobile at the right atrial SVC junction. There is no kinks in the catheter. There is no pneumothorax. REPORT OF OPERATION: Patient was brought to the angiographic suite in stable condition. His right neck and chest were prepped and draped in sterile fashion. A timeout was performed. Sedation was administered along with antibiotics without complication. Local anesthesia was a pineapple plantation manager to skin and subcutaneous tissue over the right neck and the right chest. A microneedle was used to access the jugular vein under ultrasound guidance. A wire was passed through this access under fluoroscopic guidance into the central system. The needle was removed. The micro-sheath was placed over the wire and the wire was exchanged for J-wire into the central system under fluoroscopic guidance. Next, a small incision was made at the jugular access site and a small incision was made on the right lateral chest just distal to the clavicle. 23 cm PermCath was tunneled from the right chest to the jugular access site and the subcutaneous tissue until the cough was within the subcutaneous tissue. We then performed 2 serial dilations over the wire using a Seldinger technique, and then a peel-away sheath was placed over the wire. The inner cannula and wire were removed and the tips of the catheter were advanced through the peel-away sheath into the central system. The peel-away sheath was removed. Both ports wendy back and flushed easily and were heparin locked. Final imaging showed the catheter to be in good position, no kinks in the catheter, tips freely mobile at the right atrial SVC junction, and no pneumothorax. Monocryl deep and superficial dermal sutures were placed at the jugular access site and Dermabond was placed at the skin. We then closed the chest wall around the catheter with 2 Prolene sutures. We then attached the catheter to the chest wall with 2 additional Prolene sutures. Sterile dressings were applied. The patient was then taken to recovery in stable condition. He tolerated the sedation and the procedure well. Sterile dressings were applied. ESTIMATED BLOOD LOSS: Approximately 3 mL. COMPLICATIONS: None. PLAN: The patient may resume his home medications and diet. He should keep his head elevated for the rest of the day to decrease venous pressure, and try to avoid laying flat or bending over at the waist. This will diminish the chance of bleeding. It is okay to use the right IJ PermCath for dialysis. We would like to see the patient back in clinic soon to discuss options for AV access if renal impairment is permanent. We appreciate the opportunity to participate in the care of this patient. CRISTIAN JOHNSON MD Oct 03, 2019 09:09
== END ==
LOC: M IRPRO 13:21
PROVIDERS: ATTEND Surgery Vascular Surgery
DX: T82.598A Other mechanical complication of other cardiac and vascular devices and implants, initial encounter (principal); N18.6 End stage renal disease; I50.9 Heart failure, unspecified; I13.2 Hypertensive heart and chronic kidney disease with heart failure and with stage 5 chronic kidney disease, or end stage renal disease; K21.9 Gastro-esophageal reflux disease without esophagitis; G43.909 Migraine, unspecified, not intractable, without status migrainosus; I45.6 Pre-excitation syndrome; X58.XXXA Exposure to other specified factors, initial encounter
CPT/HCPCS: 36558; 36589; 99152; C1750; C1894; J0690; J1644; J2250; J3010

== ENCOUNTER → 2019-10-28 | Outpatient (CLI) | payer BC ==
[~2019-10-28] MED LIST changes: +CALC1TAB9 PO; -ISOVUE-300 61% 50ML VIAL As Ordered ONE; -LIDOCAINE 1% MDV 20ML VIAL As Ordered ONE; -LIDOCAINE W/EPINEPHRINE 1% 20ML VIAL As Ordered ONE; +LOSA50TA88 PO; -MIDAZOLAM INJ 2MG/2ML VIAL (J2250 PER 1MG) As Ordered ONE; +OXYC1TAB23 PO; -ceFAZolin 1GM VIAL (J0690 PER 500MG) As Ordered ONE; -fentaNYL 100 MCG/2 ML INJECTION (J3010) As Ordered ONE
== END ==
LOC: M LABSMTC 10:40
PROVIDERS: ATTEND Anesthesiology
DX: Z01.818 Encounter for other preprocedural examination (principal); Z11.59 Encounter for screening for other viral diseases
CPT/HCPCS: C9803; U0003

== ENCOUNTER 2019-10-31 12:42 | Day surgery (SDC) | payer BC ==
[~2019-10-31] VITALS: Ht 182.9 cm; Wt 103.4 kg
[~2019-10-31 12:42] MED LIST changes: +LIDOCAINE 1% MDV 20ML VIAL SQ PRN; +LR 1,000 ML IV ONE; -OXYC1TAB23 PO; +ceFAZolin SOD 2 GM in IV 1 EA IV ONE
[2019-10-31] MEDS ORDERED: ROPIvacaine 0.5% 30ML INJECTION (J2795 PER 1MG) ONE (12:43)
[2019-10-31] MEDS ORDERED: dexameTHASONE 10MG/1ML VIAL PRES.FREE (J1100 PER 1MG) ONE (12:43)
[2019-10-31] MEDS ORDERED: EPINEPHrine INJ 1 MG/ML 1ML AMP ONE (12:43)
[2019-10-31] MEDS ORDERED: LIDOCAINE 1% SDV 30ML VIAL As Ordered ONE (13:25)
[2019-10-31] MEDS ORDERED: HEPARIN SOD (PORCINE) 5000UNITS/ML VIAL (J1644 PER 1000UNITS) As Ordered ONE (13:25)
[2019-10-31] MEDS ORDERED: ONDANSETRON 4MG/2ML VIAL As Ordered ONE (13:34)
[2019-10-31] MEDS ORDERED: fentaNYL 100 MCG/2 ML INJECTION (J3010) As Ordered ONE ×2 (13:35→13:51)
[2019-10-31] MEDS ORDERED: propofoL 500 MG/50 ML VIAL As Ordered ONE (13:35)
[2019-10-31] MEDS ORDERED: MIDAZOLAM INJ 2MG/2ML VIAL (J2250 PER 1MG) As Ordered ONE ×2 (13:35→13:51)
[2019-10-31] MEDS: fentaNYL 100 MCG/2 ML INJECTION (J3010) IV SCH ×2 (14:09→14:11)
[2019-10-31] MEDS ORDERED: BUPIVACAINE/EPIN 0.5% 30 ML VIAL As Ordered ONE (14:44)
[2019-10-31] MEDS ORDERED: MIDAZOLAM INJ 2MG/2ML VIAL (J2250 PER 1MG) IV ONE (15:00)
[2019-10-31] MEDS ORDERED: propofoL 200 MG/20 ML VIAL As Ordered ONE ×2 (15:59→16:49)
[2019-10-31] MEDS ORDERED: GLYCOPYRROLATE INJ 0.2 MG/ML 2 ML VIAL As Ordered ONE (16:23)
[2019-10-31] MEDS ORDERED: OXYC1TAB23 PO (17:24)
--- NOTE | 2019-10-31 17:44 | ROOPDOC ---
[facility] Report Of Operation Report of Operation DATE OF PROCEDURE: 10/31/19 PREPROCEDURE DIAGNOSES: End-stage renal disease requiring access for hemodialysis POSTPROCEDURE DIAGNOSES: Same. PROCEDURE: 1. Left brachiocephalic AV fistula creation, aborted 2. Left brachial basilic AV fistula creation SURGEON: Cristian Johnson MD ANESTHESIA: Monitored anesthesia care, left scalene nerve block, local anesthesia INDICATION FOR PROCEDURE: This is a very pleasant 54-year-old gentleman with end-stage renal disease currently dialyzing with a right IJ PermCath. We reviewed the patient's vein mapping, he is right-handed, and he prefers a left upper extremity AV fistula. Vein mapping revealed that he had suitable bilateral cephalic and basilic vein space to measurements taken preoperatively. The patient elected for a left brachial cephalic AV fistula after all of the procedures were described to him at length. Risks benefits and alternatives to a left brachiocephalic AV fistula were explained and he was agreeable to proceed. Informed consent was obtained. REPORT OF OPERATION: The patient was brought to the operating room in stable condition after a left scalene nerve block was placed by our anesthesia colleagues in preop. Monitored anesthesia care and antibiotics were administered without complication. His left upper extremity was prepped and draped in a sterile fashion. A timeout was performed. Local anesthesia was administered to the skin and subcutaneous tissue 1 cm distal to the antecubital crease and a transverse incision was made and carried down to the subcutaneous tissue with Bovie cautery. We continued our dissection down to the cephalic vein and the basilic vein. The basilic vein was considerably larger than the cephalic vein, b ut within the incision the cephalic vein appeared suitable for access creation. We skeletonized the cephalic vein proximally and distally. We then dissected down to the brachial artery and skeletonized this proximally and distally within the incision. Vesseloops were placed on the brachial artery proximally and distally. We then suture ligated and transected the cephalic vein and spatulated the end for larger patch for anastomosis. We then selected a 3 mm, 3.5 mm, and 4 mm dilator. The 3.5 mm and 3 mm dilators passed easily, but the 4 mm dilator did not. I thought perhaps this was due to an angulation in the vein, a large branch, or possibly there was a stenosis that could be surgically improved upon if necessary, versus improved with angioplasty. We decided to go ahead with a brachiocephalic anastomosis. The Vesseloops were secured, a 5 mm arteriotomy was made in the artery, and the vein was anastomosis the artery and an end-to-side fashion with 6-0 Prolene suture. Before the final sutures are placed, we flushed inflow and outflow of the artery and the vein. Heparinized saline was used to irrigate the anastomosis in the final sutures are placed. With Doppler, we confirmed good inflow through the brachial artery, good outflow through the brachial artery, a triphasic signal at the palmar arch and radial artery, but very weak flow was noted in the cephalic vein. It did seem somewhat dilated with the increased arterial flow, but he did not have a strong fistula flow sound on Doppler. I tried to dissected up over the vein more proximally over the bicep from her existing incision, but I was not able to dissected high enough to see the area of concern. Therefore, a counterincision was made over the bicep after anesthetizing with local anesthesia. Carefully dissected this down through the subcutaneous tissue. What I found is that the cephalic vein bifurcated over the bicep into 2 small veins, and this continued fairly for the arm. I did not think this is something I could easily remedy, and I did not feel it would be suitable outflow for fistula. At this point, I felt the fistula was not going to mature be successful. Therefore, I ligated the cephalic vein near the AV anastomosis, re-secured the Vesseloops on the brachial artery. The basilic vein was skeletonized within the incision and was significantly larger size. It was distally ligated and transected, and dilators easily passed through the vein, including a 4 mm, 4.5 mm, and a 5 mm dilator. These were all passed sequentially through the vein with ease. A bulldog clamp was placed on the basilic vein for hemostasis after flushing with heparinized saline. I then used an 11 blade to remove the Prolene sutures. The vein was then removed from the artery, and heparinized saline was used to irrigate the artery. I then performed an end-to-side anastomosis with the brachial artery and basilic vein with a running 6-0 Prolene. Before the final sutures were placed, we flushed the inflow and outflow of the artery and the vein and irrigated with heparinized saline. The final sutures are placed in good hemostasis was noted. Following this, Doppler confirm there was still excellent flow to the hand and this time we had excellent flow through the basilic vein. There was a good thrill in the vein as well. Additional local anesthesia was administered to both incisions. Copious amounts of saline irrigation was used at both incisions. We then closed the deep tissue at both incisions with 2-0 Vicryl running suture. The deep dermal layers of each incision were approximated with interrupted 4-0 Vicryl sutures. The skin was closed with running subcuticular Monocryl sutures. Both wounds were cleaned and dried. Mastisol and Steri-Strips were used to dress the incisions and then these Steri-Strips were covered with dry gauze and Tegaderms. A sling was placed in the left upper extremity. The patient was allowed to awaken from anesthesia was taken to recovery in stable condition. He tolerated the procedure and the anesthesia well. ESTIMATED BLOOD LOSS: Approximately 25 mL. COMPLICATIONS: None. PLAN: Okay to resume home diet medications. Continues PermCath for dialysis. We will see the patient back in a week to check his incisions and his fistula flow. He will eventually need a basilic vein transposition prior to use for dialysis. Okay to remove the tegaderms and gauze postop day 1, but the Steri-Strips intact for 7 days. No strenuous exercise or lifting greater than 10 pounds for [address] while taking narcotics. Prescription for Percocet sent to [facility] in [place]. Continue to squeeze ball to help with fistula maturation. Okay to remove the sling on the left upper extremity once motor and sensory function returned to baseline. We spoke with the patient and his fiance and asked them to call with any questions or concerns. We appreciate the opportunity to participate in the care of this patient. CRISTIAN JOHNSON MD Oct 31, 2019 17:44
[2019-10-31 18:10] VITALS: BP 162/107
== END 2019-10-31 18:17 | disposition home or self-care (01) ==
LOC: M SDC 12:42
PROVIDERS: ATTEND Surgery Vascular Surgery
DX: N18.6 End stage renal disease (principal)
CPT/HCPCS: 36415; 36821; 37799; 64415; 84132; J0171; J0690; J1100; J1644; J2250; J2405; J2795; J3010

== ENCOUNTER → 2020-02-07 | Outpatient (CLI) | payer BC, MEDICARE ==
[~2020-02-07] MED LIST changes: -AMLO10TA5 PO; +AMLO1TAB25 PO; +LIDOCAINE 1% MDV 20ML VIAL As Ordered ONE; -LIDOCAINE 1% MDV 20ML VIAL SQ PRN; -LR 1,000 ML IV ONE; +MIDAZOLAM INJ 2MG/2ML VIAL (J2250 PER 1MG) As Ordered ONE; +OXYC1TAB23 PO; +PANT40TA29 PO; -PANT40TA3 PO; +ceFAZolin 1GM VIAL (J0690 PER 500MG) As Ordered ONE; -ceFAZolin SOD 2 GM in IV 1 EA IV ONE; +diphenhydrAMINE 50MG/ML VIAL (J1200) As Ordered ONE; +fentaNYL 100 MCG/2 ML INJECTION (J3010) As Ordered ONE
--- NOTE | 2020-02-07 12:39 | IRHP ---
[facility] IR Pre-Procedure H & P General Date of Service: Feb 07, 2020 Procedure: Same Day Surgery Interval History and Physical I have seen the patient and reviewed last H & P performed within 30 days. There is no significant interval change. History of Present Illness Chief Complaint The patient is a 54-year-old male admitted with a reason for visit of ESRD. PRE-PROCEDURE DIAGNOSIS: ESRD HEART: normal rate. LUNGS: normal breathing at rest. ASA Classification ASA Classification: III-Severe systemic dis. Mallampati Score: II NPO: Yes Problems with prior sedation: No Obstructive Sleep Apnea: No Plan moderate sedation Allergies Coded Allergies: No Known Allergies (Unverified , 10/18/19) Home Medications Scheduled Amlodipine Besylate (Amlodipine Besylate), 10 MG PO QHS, (Reported) Calcium Citrate (Calcitrate), 667 MG PO AC, (Reported) Carvedilol (Carvedilol), 25 MG PO BID Losartan Potassium (Losartan Potassium), 50 MG PO DAILY, (Reported) Pantoprazole Sodium (Pantoprazole Sodium), 40 MG PO QAM Discontinued Medications Oxycodone HCl/Acetaminophen (Oxycodone-Acetaminophen 5-325), 1 TAB PO QIDP PRN for pain Discontinued Reason: Pt states not taking VS, I&O, 24H, Fishbone Vital Signs/I&O Vital Signs Date Time Temp Pulse Resp B/P (MAP) Pulse Ox O2 Delivery O2 Flow Rate FiO2 02/07/20 12:35 52 16 100 Nasal Cannula 2 02/07/20 11:19 97.3 DAYNE GARCIA MD Feb 07, 2020 12:39
--- NOTE | 2020-02-07 12:42 | POST-OPPD ---
Postoperative Procedure Note Date Of Procedure: Feb 07, 2020 Time Of Procedure: 12:40 IR PermCath placement. IR PermCath insertion under fluoroscopic and ultrasound guidance. IR Ultrasound of the right neck. IR Moderate sedation. Clinical Information:Renal failure. Physician: Dr. Adan. Procedure: The patient was advised of the benefits, risks, and alternatives of the procedure and informed consent was obtained. A time out was performed with verification of the patient's name, MRN, site of procedure, and type of procedure to be performed. The patient was positioned in the supine position on the angiographic table. The site was prepped and draped in the usual sterile fashion. Moderate sedation was performed by the physician including the presence of an independent trained RN who assisted in monitoring the patient's level of consciousness and physiological status. Following the administration of Fentanyl and Versed, the physician spent 45 minutes of continuous [id number] time with the patient. Ultrasound of the neck reveals a patent and compressible right internal jugular vein. A drywall stripper radiograph reveals no gross abnormality. The neck and anterior chest wall were anesthetized with lidocaine. The right internal jugular vein was accessed using a microintroducer needle via a lateral approach. A 0.018 cope wire was advanced into the superior vena cava, the needle was removed and a microintroducer sheath was placed. An Amplatz wire was then passed into the inferior vena cava. Incisions at the internal jugular access site and anterior chest wall were made using a scalpel. A 19 cm palindrome catheter was inserted through subcutaneous tissues of the chest wall with a tunneling device. The microintroducer sheath was removed and the internal jugular puncture site was upsized with a dilator. A peel-away sheath was placed over the wire and into the superior vena cava. The wire and insert were removed. The catheter was passed into the internal jugular vein via the sheath. The peel away sheath was then removed. The catheter tip was positioned at the right atrium. The puncture site was closed with glue. The catheter was secured in place using a 2-0 Prolene. Both sites were cleansed and sterile dressings were applied. At the conclusion of the procedure, the ports of the catheter aspirated and flushed freely. The catheter was locked with high-dose heparin. The patient tolerated the procedure well and was returned to the PRU in stable condition. EBL: < 5 ml. Complications: None. Conclusion: Successful placement of a 19 cm palindrome PermCath. The catheter is ready for immediate use. Thank you for this referral. DAYNE ADAN MD Feb 07, 2020 12:42
[2020-02-07 14:31] VITALS: BP 132/81
== END ==
LOC: M IRPRO 11:12
PROVIDERS: ATTEND Radiology Diagnostic Radiology
DX: N18.6 End stage renal disease (principal)
CPT/HCPCS: 36558; 99152; 99153; C1750; C1769; C1894; J0690; J1200; J1644; J2250; J3010

== ENCOUNTER → 2020-02-15 | Outpatient (CLI) | payer BC ==
[~2020-02-15] MED LIST changes: -LIDOCAINE 1% MDV 20ML VIAL As Ordered ONE; -MIDAZOLAM INJ 2MG/2ML VIAL (J2250 PER 1MG) As Ordered ONE; -ceFAZolin 1GM VIAL (J0690 PER 500MG) As Ordered ONE; -diphenhydrAMINE 50MG/ML VIAL (J1200) As Ordered ONE; -fentaNYL 100 MCG/2 ML INJECTION (J3010) As Ordered ONE
== END ==
LOC: M LABSMTC 09:29
PROVIDERS: ATTEND Anesthesiology
DX: Z01.812 Encounter for preprocedural laboratory examination (principal); Z20.828 Contact with and (suspected) exposure to other viral communicable diseases
CPT/HCPCS: C9803; U0003

== ENCOUNTER 2020-02-20 11:49 | Day surgery (SDC) | payer BC ==
[~2020-02-20] VITALS: Ht 182.9 cm; Wt 105.2 kg
[~2020-02-20 11:49] MED LIST changes: +NS 1,000 ML IV ONE; +ceFAZolin SOD 2 GM in IV 1 EA IV ONE
[2020-02-20] MEDS ORDERED: BUPIVACAINE/EPIN 0.5% 30 ML VIAL As Ordered ONE (14:42)
[2020-02-20] MEDS ORDERED: HEPARIN SOD (PORCINE) 5000UNITS/ML 1ML VIAL/SYRINGE As Ordered ONE (14:42)
[2020-02-20] MEDS ORDERED: fentaNYL 100 MCG/2 ML INJECTION (J3010) As Ordered ONE ×2 (14:47→16:50)
[2020-02-20] MEDS ORDERED: propofoL 200 MG/20 ML VIAL As Ordered ONE (14:47)
[2020-02-20] MEDS ORDERED: dexameTHASONE 4 MG/ML 1ML VIAL (J1100 PER 1MG) As Ordered ONE (14:47)
[2020-02-20] MEDS ORDERED: MIDAZOLAM INJ 2MG/2ML VIAL (J2250 PER 1MG) As Ordered ONE (14:47)
[2020-02-20] MEDS ORDERED: LIDOCAINE 2% 100MG/5ML SDV (FOR ANES.) As Ordered ONE (14:47)
[2020-02-20] MEDS ORDERED: ePHEDrine SULFATE 25 MG/5 ML(5MG/ML) SYRINGE As Ordered ONE (16:42)
[2020-02-20] MEDS ORDERED: GLYCOPYRROLATE INJ 0.2 MG/ML 2 ML VIAL As Ordered ONE (16:42)
[2020-02-20] MEDS ORDERED: ONDANSETRON 4MG/2ML VIAL As Ordered ONE (16:53)
[2020-02-20] MEDS ORDERED: OXYC1TAB23 PO (18:15)
--- NOTE | 2020-02-20 18:20 | ROOPDOC ---
[facility] Report Of Operation Report of Operation DATE OF PROCEDURE: 02/20/20 PREPROCEDURE DIAGNOSES: End-stage renal disease, left upper extremity brachial basilic AV fistula too deep for cannulation POSTPROCEDURE DIAGNOSES: Same PROCEDURE: Left brachial basilic AV fistula transposition SURGEON: Cristian Johnson MD ANESTHESIA: LMA anesthesia and local INDICATION FOR PROCEDURE: This is a very pleasant 54-year-old gentleman with end-stage renal disease dialyzing with a PermCath who has a left brachial basilic AV fistula that is too deep for cannulation. Risks benefits and alternatives to the basilic vein transposition were explained to the patient he is agreeable to proceed. Informed consent was obtained. REPORT OF OPERATION: Patient was brought to the operating room in stable condition. LMA general anesthesia and antibiotics were administered without comp occasion. His left upper extremity was prepped and draped in a sterile fashion. A timeout was performed. Local anesthesia was ministered to skin and subcutaneous tissue over the fistula. Incision was made and carried down to the subcutaneous tissue Bovie cautery. Sharp dissection was used to isolate the pain circumferentially. We continued to expose the vein in this fashion several inches at a time over the upper arm. Once the entire vein was exposed, the branches were suture ligated and divided. The vein was skeletonized circumferentially. There were extensive nerves over the vein, and these carefully were preserved. Clamps were placed proximally and distally on the vein. We transected the vein in a beveled fashion, superficialized it above the nerves, and then tunneled the vein through the superficial subcutaneous tissue over the bicep. We then irrigated with heparinized saline and reanastomosed the vessel with a running 6-0 Prolene suture after spatulating each end, taking care not to pursestring and narrow the vein. Before the final sutures are placed, we flushed the inflow and outflow and irrigated with heparinized saline. We then placed the final sutures and restored flow. There was an excellent thrill in the vein after transposition. We irrigated with copious amounts of saline. The deep tissues and space were closed with [id number] Vicryl sutures. The fascia was closed in 2 layers with running 2-0 Vicryl suture. The dermal layer was approximated with interrupted 3-0 Vicryl suture. The skin was closed with subcuticular Monocryl suture. Mastisol and Steri-Strips replace the length of the incision. Gauze and Tegaderms were placed as a final dressing. The patient was allowed to awaken from anesthesia and taken to recovery in stable condition. He tolerated the procedure well. ESTIMATED BLOOD LOSS: Approximately 25 mL. COMPLICATIONS: None. PLAN: Okay to resume home diet medications. Rx Percocet for pain. Follow up in 1 week to check incision and thrill AV fistula. Okay to remove Tegaderm and gauze after 24 hours, but leave Steri-Strips intact 7 days to help with healing. If Steri-Strips get wet in the shower, pat dry. No tub baths or swimming for 3 weeks. We appreciate the opportunity to participate in the care of this patient CRISTIAN JOHNSON MD Feb 20, 2020 18:20
[2020-02-20] MEDS ORDERED: LR 1,000 ML IV SCH (18:30)
[2020-02-20] MEDS ORDERED: METOCLOPRAMIDE INJ 10MG/2ML VIAL (J2765 PER 1) IV PRN (18:30)
[2020-02-20] MEDS ORDERED: ONDANSETRON 4MG/2ML VIAL IV PRN (18:30)
[2020-02-20] MEDS ORDERED: fentaNYL 100 MCG/2 ML INJECTION (J3010) IV PRN (18:30)
[2020-02-20 19:12] VITALS: BP 142/91
== END 2020-02-20 19:12 | disposition home or self-care (01) ==
LOC: M SDC 11:49
PROVIDERS: ATTEND Surgery Vascular Surgery
DX: N18.6 End stage renal disease (principal); I13.2 Hypertensive heart and chronic kidney disease with heart failure and with stage 5 chronic kidney disease, or end stage renal disease; I50.9 Heart failure, unspecified; Z79.899 Other long term (current) drug therapy; Z99.2 Dependence on renal dialysis
CPT/HCPCS: 36415; 36819; 84132; J0690; J1100; J1644; J2250; J2405; J3010

== ENCOUNTER → 2020-05-21 | Outpatient (CLI) | payer BC ==
[~2020-05-21] MED LIST changes: +LIDOCAINE 1% MDV 20ML VIAL As Ordered ONE; -NS 1,000 ML IV ONE; -ceFAZolin SOD 2 GM in IV 1 EA IV ONE
[2020-05-21 11:53] VITALS: BP 134/87
--- NOTE | 2020-05-21 12:15 | POST-OPPD ---
Postoperative Procedure Note Date Of Procedure: May 21, 2020 Time Of Procedure: 12:14 IR PermCath removal. Clinical indication: Renal failure. Now dialyzing through left arm fistula. The PermCath site was prepped and draped in the usual sterile fashion. Lidocaine was used for local anesthesia. The catheter cuff was dissected out of the soft tissues using blunt dissection. The catheter was removed in it's entirety. Patient tolerated the procedure well, hemostasis achieved and a sterile dressing was applied to the site. Blood loss: Less than 5 mL. Complications: None. Impression: Successful removal of PermCath. DAYNE GARCIA MD May 21, 2020 12:15
== END ==
LOC: M IRPRO 11:25
PROVIDERS: ATTEND Radiology Diagnostic Radiology
DX: N18.6 End stage renal disease (principal); I12.0 Hypertensive chronic kidney disease with stage 5 chronic kidney disease or end stage renal disease; D63.1 Anemia in chronic kidney disease; G47.00 Insomnia, unspecified; Z79.899 Other long term (current) drug therapy; Z99.2 Dependence on renal dialysis

== ENCOUNTER 2021-01-13 13:46 | Inpatient (IN) | payer BC ==
[~2021-01-13] VITALS: Ht 182.9 cm; Wt 90.4 kg
[~2021-01-13 13:46] MED LIST changes: -LIDOCAINE 1% MDV 20ML VIAL As Ordered ONE
--- NOTE | 2021-01-13 14:52 | REP ---
INDICATION: Coronavirus workup. COMPARISON: 09/18/2019. TECHNIQUE: Single portable AP view of the chest was performed. FINDINGS: There are diffuse bilateral infiltrates, with a predominantly peripheral location. The heart and mediastinum are unchanged. The heart appears to be upper limits of normal in size. IMPRESSION: Diffuse bilateral infiltrates. <Electronically signed by Alfa Bo > 01/13/21 1914
[2021-01-13 14:56] LABS: BASO % 0.2 % (0.0-1.0); HEMATOCRIT 29.9 % (42.0-52.0); HEMOGLOBIN 10.2 g/dl (13.5-17.5); LYMPH # 0.9 10^3/uL (1.5-5.0); LYMPH % 13.9 % (24.0-44.0); MEAN CORPUSCULAR HEMOGLOBIN 32.9 pg (27.0-33.0); MEAN CORPUSCULAR HGB CONC 34.1 g/dl (32.0-36.5); MEAN CORPUSCULAR VOLUME 96.5 fl (80.0-96.0); MONO # 0.3 10^3/uL (0.0-0.8); MONO % 4.1 % (2.0-8.0); NEUTROPHILS % 81.1 % (36.0-66.0); PLATELET COUNT, AUTOMATED 144 10^3/uL (150-450); WHITE BLOOD COUNT 6.1 10^3/uL (4.0-10.0)
[2021-01-13] MEDS ORDERED: LIDO1CRE42 TOP (15:15)
[2021-01-13] MEDS ORDERED: PANT-23 PO (15:15)
[2021-01-13] MEDS ORDERED: CARV12.5 PO (15:15)
[2021-01-13] MEDS ORDERED: AMLO1TAB24 PO (15:15)
[2021-01-13] MEDS ORDERED: SEVE800T3 PO (15:15)
[2021-01-13] MEDS ORDERED: HOME MED LIST COMPLETE! XX SCH (15:20)
[2021-01-13 15:49] LABS: ALBUMIN 2.6 GM/DL (3.2-5.2); BILIRUBIN,TOTAL 0.5 MG/DL (0.2-1.0); C REACTIVE PROTEIN QUANTITATIV 10.9 MG/DL (0.00-0.30); CALCIUM LEVEL 8.4 MG/DL (8.5-10.1); CK-MB VALUE MASS 1.6 NG/ML (<3.6); CREATININE FOR GFR 11.4 MG/DL (0.70-1.30); MB/CK RELATIVE INDEX 0.08 (< OR =4); TOTAL PROTEIN 6.1 GM/DL (6.4-8.2); TROPONIN I 0.13 NG/ML (< 0.10)
--- NOTE | 2021-01-13 17:08 | HPEPDOC ---
[facility] Medical History & Physical Date of Admission Jan 13, 2021 Date of Service: Jan 13, 2021 History and Physical CHIEF COMPLAINT: "Having a hard time and not feeling good" HISTORY OF PRESENT ILLNESS: 55-year-old male with a past medical history of end-stage renal disease and hypertension presented to the emergency department with complaints of fever, chills, malaise, arthralgias, myalgias, diarrhea, and shortness of breath. He tested positive for Covid on 01/06 and was feeling well up until 01/09. However, today he is shortness of breath got progressively worse therefore presented to the emergency room department. He is requiring 2 L nasal cannula at this time. He endorsed having chest pain that is reproducible with cough and palpation of the chest wall. He denied nausea, vomiting, and problems with urination PAST MEDICAL HISTORY: 1. End-stage renal 2. Hypertension PAST SURGICAL HISTORY: 1. ACL repair SOCIAL HISTORY: Patient has a fianc. He denies drinking, smoking, use or recreational drug FAMILY HISTORY: Did not endorse any family history ALLERGIES: Please see below. REVIEW OF SYSTEMS: 10 point review of system was negative except for what is noted in the HPI HOME MEDICATIONS: Please see below. PHYSICAL EXAMINATION: VITAL SIGNS: Please see below General: Lying in bed, no acute distress Head/Neck/Throat: Trachea midline, mucous membranes moist Eyes: Sclera anicteric, PERRLA Thorax: On 5 L nasal cannula saturating at 96, lungs clear to auscultation bilaterally. Difficult to complete sentences due to reported shortness of breath Cardiovascular: Normal rate, regular rhythm, normal S1, S2; no S3, S4, rubs/gallops/murmurs Abdomen: Bowel sounds present, soft/nontender/nondistended Genitourinary: No CVA tenderness, no Vega in place Musculoskeletal: Moving all extremities, no edema Skin: Warm, dry Neurologic: AAOx3, speech fluent and goal-directed, no focal deficits, grossly intact LABORATORY DATA: See below. IMAGING: Chest x-ray remarkable for diffuse bilateral infiltrates MICROBIOLOGY: Please see below. ASSESSMENT/PLAN: #Covid pneumonia -Patient will be started on dexamethasone as he is requiring oxygen. Benefits outweigh the risks of remdesivir at this time and end-stage renal disease. All risks and benefits were discussed with the patient, and patient is willing to take remdesivir. -O2 supplementation #End-stage renal disease -Had his last dialysis session on 01/12. Will consult nephrology for his last sessions to resume here. #Hypertension -Ambulatory amlodipine, carvedilol, and losartan. #GERD -Continue with pantoprazole #DVT prophylaxis Heparin subcu Vital Signs Vital Signs Date Time Temp Pulse Resp B/P (MAP) Pulse Ox O2 Delivery O2 Flow Rate FiO2 01/13/21 15:45 66 137/77 (97) 95 01/13/21 15:43 Nasal Cannula 2.0 01/13/21 13:46 98.7 16 Laboratory Data Labs 24H Laboratory Tests 2 01/13/21 14:19: Immature Granulocyte % (Auto) 0.7, Neutrophils (%) (Auto) 81.1H, Lymphocytes (%) (Auto) 13.9L, Monocytes (%) (Auto) 4.1, Eosinophils (%) (Auto) 0.0, Basophils (%) (Auto) 0.2, Neutrophils # (Auto) 5.0, Lymphocytes # (Auto) 0.9L, Monocytes # (Auto) 0.3, Eosinophils # (Auto) 0.0, Basophils # (Auto) 0.0, Nucleated Red Blood Cells % (auto) 0.0, D-Dimer, Quantitative 3317.00H, Anion Gap 14, Glomerular Filtration Rate 5.0L, Lactic Acid Level 2.1*H, Calcium Level 8.4L, Ferritin 50798Y, Total Bilirubin 0.5, Aspartate Amino Transf (AST/SGOT) 83H, Alanine Aminotransferase (ALT/SGPT) 18, Alkaline Phosphatase 36L, Lactate Dehydrogenase 716H, Total Creatine Kinase 1971H, Creatine Kinase MB 1.6, Creatine Kinase MB Relative Index 0.08, Troponin I 0.13H, C-Reactive Protein, Quantitative 10.90H, Total Protein 6.1L, Albumin 2.6L, Albumin/Globulin Ratio 0.7 CBC/BMP Laboratory Tests 01/13/21 14:19 Microbiology Microbiology 01/13/21 Blood Culture, Received Pending 01/13/21 Blood Culture, Received Pending Home Medications Scheduled Amlodipine Besylate (Amlodipine Besylate) 5 Mg Tablet, 5 MG PO QHS Carvedilol (Carvedilol) 12.5 Mg Tablet, 12.5 MG PO BID Lidocaine/Prilocaine (Lidocaine-Prilocaine Cream) 2.5%/2.5% Cream..g., 1 APPLIC TOP ASDIRECTED APPLY TO FISTULA PRIOR TO DIALYSIS Losartan Potassium (Losartan Potassium) 50 Mg Tablet, 50 MG PO QHS Pantoprazole Sodium (Pantoprazole Sodium) 40 Mg Tablet.dr, 40 MG PO QHS Sevelamer Carbonate (Sevelamer Carbonate) 800 Mg Tablet, 800 MG PO TID Allergies Coded Allergies: No Known Allergies (Unverified , 10/18/19) A-FIB/CHADSVASC A-FIB History Current/History of A-Fib/PAF?: No ZARA KITCHEN M.D. Jan 13, 2021 16:57
[2021-01-13] MEDS ORDERED: dexameTHASONE 4 MG/ML 1ML VIAL (J1100 PER 1MG) IV SCH (18:00)
[2021-01-13 19:38] VITALS: BP 119/68
[2021-01-13 20:00] VITALS: O2SAT 92
[2021-01-13] MEDS: LOSARTAN 50MG TABLET PO SCH (20:14)
[2021-01-13] MEDS: PANTOPRAZOLE 40MG TAB (PROTONIX) PO SCH (20:14)
[2021-01-13] MEDS: CARVedilol 12.5 MG TAB PO SCH (20:14)
[2021-01-13] MEDS: amLODIPine 5 MG TAB PO SCH (20:14)
[2021-01-13] MEDS ORDERED: REMDESIVIR 200 MG in NS 250 ML IV ONE (21:00)
[2021-01-13] MEDS: HEPARIN SOD (PORCINE) 5000UNITS/ML 1ML VIAL/SYRINGE SQ SCH (21:14)
[2021-01-13] MEDS: (RENVELA) SEVELAMER **CARBONate** 800 MG TAB PO SCH (21:14)
[2021-01-13 22:00] VITALS: BP 112/78
[2021-01-13] MEDS ORDERED: SODIUM CHLORIDE 0.9% INJ 10 ML SYR IV ONE (22:00)
[2021-01-13] MEDS: guaiFENesin ER 600 MG TAB PO SCH (22:09)
[2021-01-13] MEDS: ACETAMINOPHEN TAB 650MG DOSE (2X325MG) PO PRN (22:09)
[2021-01-14] VITALS (11 sets, daily range): BP systolic 93–114; BP diastolic 56–78; O2SAT 93–94
[2021-01-14] MEDS: COMBIVENT RESPIMAT 100-20MCG INHALER 4GM INH SCH ×7 (01:00→23:45)
[2021-01-14 01:17] LABS: ABG BASE EXCESS -2.2 (-2.0-2.0); ABG HCO3 21.5 MEQ/L (22.0-26.0); ABG O2 SATURATION 97.5 % (95.0-99.0); ABG PARTIAL PRESSURE CO2 33.2 mmHg (35.0-45.0); ABG PARTIAL PRESSURE O2 110.1 mmHg (75.0-100.0); ABG STANDARD HCO3 22.6 MEQ/L (22.0-26.0); ABG TOTAL CO2 22.6 MEQ/L (22.0-29.0)
[2021-01-14] MEDS: BENZONATATE 100MG CAPSULE PO PRN (05:46)
[2021-01-14] MEDS: HEPARIN SOD (PORCINE) 5000UNITS/ML 1ML VIAL/SYRINGE SQ SCH ×3 (05:46→22:39)
[2021-01-14 06:42] LABS: BASO % 0.1 % (0.0-1.0); HEMATOCRIT 31.2 % (42.0-52.0); HEMOGLOBIN 10.4 g/dl (13.5-17.5); LYMPH # 0.8 10^3/uL (1.5-5.0); LYMPH % 10.4 % (24.0-44.0); MEAN CORPUSCULAR HEMOGLOBIN 32.7 pg (27.0-33.0); MEAN CORPUSCULAR HGB CONC 33.3 g/dl (32.0-36.5); MEAN CORPUSCULAR VOLUME 98.1 fl (80.0-96.0); MONO # 0.2 10^3/uL (0.0-0.8); NEUTROPHILS # 6.3 10^3/uL (1.5-8.5); NEUTROPHILS % 85.4 % (36.0-66.0); PLATELET COUNT, AUTOMATED 156 10^3/uL (150-450); RED BLOOD COUNT 3.18 10^6/uL (4.30-6.10); WHITE BLOOD COUNT 7.4 10^3/uL (4.0-10.0)
[2021-01-14 07:18] LABS: ALBUMIN 2.3 GM/DL (3.2-5.2); BILIRUBIN,DIRECT 0.2 MG/DL (0.0-0.2); BILIRUBIN,TOTAL 0.6 MG/DL (0.2-1.0); CALCIUM LEVEL 8.8 MG/DL (8.5-10.1); CREATININE FOR GFR 13.1 MG/DL (0.70-1.30); GLOMERULAR FILTRATION RATE 4.3 (>56); MAGNESIUM LEVEL 2.6 MG/DL (1.8-2.4); PHOSPHORUS LEVEL 8.7 MG/DL (2.5-4.9); POTASSIUM SERUM 4.2 MEQ/L (3.5-5.1)
[2021-01-14] MEDS ORDERED: FLUBLOK(EGG FREE)(QUAD)INFLUENZA VACC 0.5ML SYRINGE 18YRS & OLDER IM ONE (09:00)
[2021-01-14] MEDS: CARVedilol 12.5 MG TAB PO SCH ×2 (09:00→20:22)
[2021-01-14] MEDS: guaiFENesin ER 600 MG TAB PO SCH ×2 (10:21→20:21)
[2021-01-14] MEDS: (RENVELA) SEVELAMER **CARBONate** 800 MG TAB PO SCH ×3 (10:21→20:21)
[2021-01-14] MEDS ORDERED: LIDOCAINE 1% SDV 5ML VIAL SC PRN (11:00)
[2021-01-14 17:39] LABS: ABG BASE EXCESS -2.2 (-2.0-2.0); ABG HCO3 21.2 MEQ/L (22.0-26.0); ABG PARTIAL PRESSURE CO2 31.5 mmHg (35.0-45.0); ABG PARTIAL PRESSURE O2 64.2 mmHg (75.0-100.0); ABG STANDARD HCO3 22.5 MEQ/L (22.0-26.0); ABG TOTAL CO2 22.1 MEQ/L (22.0-29.0); ABG pH (ARTERIAL) 7.445 UNITS (7.350-7.450)
[2021-01-14] MEDS: dexameTHASONE 4 MG/ML 1ML VIAL (J1100 PER 1MG) IV SCH (20:18)
[2021-01-14] MEDS: amLODIPine 5 MG TAB PO SCH (20:21)
[2021-01-14] MEDS: PANTOPRAZOLE 40MG TAB (PROTONIX) PO SCH (20:21)
[2021-01-14] MEDS: LOSARTAN 50MG TABLET PO SCH (20:22)
--- NOTE | 2021-01-14 20:37 | IPNPDOC ---
Text Note Date of Service The patient was seen on 01/14/21. NOTE Hospitalist Progress Note Subjective: This morning the patient's oxygen requirements were continually getting worse to the point where he was maxed out on rebreather and Vapotherm, I was called to the bedside because patient was still struggling for breath and barely maintain ing sats him. The decision was made to transfer him to the ICU and start him on BiPAP. Oxygen saturations have been adequate since initiation of BiPAP. Objective: General: Awake, alert, oriented 3. Patient is in some respiratory distress during my examination HEENT: Head normocephalic, atraumatic, sclera are nonicteric. Hearing is grossly intact to conversation. Respiratory: Diminished throughout cardiovascular: Regular rate and rhythm, with no rubs, gallops, or murmur. Abdomen: Soft, nontender, nondistended, no hepatosplenomegaly appreciated. Extremities: 2+ pulses in the radial and dorsalis pedis bilaterally. No evidence of clubbing or cyanosis. Assessment: COVID-19 pneumonia -Transfer patient to ICU -Start patient on BiPAP -Consult pulmonology -Continue remdesivir -Continue dexamethasone End-stage renal disease requiring hemodialysis -Patient is scheduled for dialysis today, this will be performed in the ICU now -Correction of the patient's electrolytes will also likely assist with his acid- base status, and respiratory distress -Nephrology has been consulted, they are managing his dialysis, their input is greatly appreciated Acute hypotension in the setting of chronic hypertension -Patient had a few low blood pressure readings this morning, however they did come back up without treatment, he is predominantly been normotensive since admission -No change in antihypertensives at this time. GERD -Continue home dose of pantoprazole DVT prophylaxis -Heparin VS,Fishbone, I+O VS, Fishbone, I+O Laboratory Tests 01/14/21 06:29 Vital Signs Date Time Temp Pulse Resp B/P (MAP) Pulse Ox O2 Delivery O2 Flow Rate FiO2 01/14/21 20:21 60 113/72 01/14/21 19:42 70 01/14/21 16:30 97.1 22 94 NIPPV (BIPAP/CPAP) 01/14/21 15:30 40.0 I&O- Last 24 Hours up to 6 AM 01/14/21 05:59 Intake Total 240 ml Balance 240 ml DIPESH ANAYA DO Jan 14, 2021 20:37
[2021-01-14] MEDS: REMDESIVIR 100 MG in NS 250 ML IV SCH (21:05)
[2021-01-14] MEDS: SODIUM CHLORIDE 0.9% INJ 10 ML SYR IV SCH (22:39)
--- NOTE | 2021-01-14 23:58 | ECGEPIP ---
[facility] - ED Test Date: 2021-01-13 Pat Name: DHIRAJ JACOBS Department: Room: - Gender: Male Research Professional: CHRISTIE : [id number] Requested By: Tony Wallace Order Number: [id number] Reading MD: Tony Sloan Measurements Intervals [place] Rate: 70 P: 51 ID: [id number] QRS: 2 QRSD: 96 T: 29 QT: 386 QTc: 416 Interpretive Statements Sinus rhythm with premature atrial complexes RHYTHM/RATE CHANGE COMPARED TO 09/19/19 Electronically Signed on 01-14-2021 23:58:35 EDT by Tony Sloan
[2021-01-15] VITALS (25 sets, daily range): BP systolic 81–119; BP diastolic 46–78
[2021-01-15] MEDS: COMBIVENT RESPIMAT 100-20MCG INHALER 4GM INH SCH ×5 (03:27→19:12)
[2021-01-15 04:43] LABS: INR 1.03; PROTHROMBIN TIME 13.9 SECONDS (12.7-14.5)
[2021-01-15 04:44] LABS: PARTIAL THROMBOPLASTIN TIME 33.9 SECONDS (25.9-37.0)
[2021-01-15] MEDS: HEPARIN SOD (PORCINE) 5000UNITS/ML 1ML VIAL/SYRINGE SQ SCH ×3 (05:06→21:35)
[2021-01-15 05:36] LABS: ALBUMIN 2.1 GM/DL (3.2-5.2); BILIRUBIN,DIRECT 0.2 MG/DL (0.0-0.2); BILIRUBIN,TOTAL 0.6 MG/DL (0.2-1.0); CALCIUM LEVEL 8.9 MG/DL (8.5-10.1); CREATININE FOR GFR 14.3 MG/DL (0.70-1.30); GLOMERULAR FILTRATION RATE 3.9 (>56); POTASSIUM SERUM 4.5 MEQ/L (3.5-5.1); TROPONIN I 0.09 NG/ML (< 0.10)
[2021-01-15] MEDS: CARVedilol 6.25 MG TAB PO SCH ×2 (07:58→19:59)
--- NOTE | 2021-01-15 08:10 | IPNPDOC ---
Text Note Date of Service The patient was seen on 01/15/21. NOTE Hospitalist Progress Note Subjective: Patient was transferred to the ICU due to desaturations even on maximum flow of rebreather and Vapotherm. He was put on BiPAP. Multiple times throughout the night they did have to adjust some of the parameters to maintain oxygen saturat ions above 90, however this target goal was maintained throughout the night. He also does have episodes of hypotension and bradycardia therefore his home antihypertensives were discontinued last night as well. Review of systems is difficult to obtain as the patient is wearing BiPAP mask, however he indicates that he is feeling all right this morning, he does not have any pain at this time. He is resting comfortably. Objective: General: Awake, alert, oriented 3. Not in any acute distress at this time. Currently wearing BiPAP mask. HEENT: Head normocephalic, atraumatic, sclera are nonicteric. Hearing is grossly intact to conversation. Respiratory: Perhaps faint/minimal crackles noted at the left base, otherwise the remainder of the lung benton are diminished, exam is limited by the use of disposable stethoscope. Cardiovascular: Bradycardic rate with what appears to be a normal rhythm, with no rubs, gallops, or murmur. Abdomen: Soft, nontender, nondistended, no hepatosplenomegaly appreciated. Bowel sounds present. Extremities: 2+ pulses in the radial and dorsalis pedis bilaterally. No evidence of clubbing or cyanosis. No edema noted. Multiple tattoos. Assessment/Plan: COVID-19 pneumonia -Patient continues to require ICU stay. -Patient was started on BiPAP yesterday, I have requested the pulmonology come see and evaluate the patient this morning. Their input is greatly appreciated. -Continue to titrate to maintain oxygen saturations above 90% -Continue remdesivir -Continue dexamethasone End-stage renal disease requiring hemodialysis -Nephrology has been consulted for the management of his dialysis. Their input is greatly appreciated. Apparently there is some issue with trying to accomplish dialysis in a negative pressure room, I will defer to nephrology's expertise on the best way to accomplish dialysis in this situation. -Correction of the patient's electrolytes will also likely assist with his acid- base status, and respiratory issues. Acute hypotension in the setting of chronic hypertension Bradycardia -All antihypertensives have been discontinued -Beta-steven has also been discontinued GERD -Continue home dose of pantoprazole DVT prophylaxis -Heparin VS,Fishbone, I+O VS, Fishbone, I+O Laboratory Tests 01/15/21 03:57 Vital Signs Date Time Temp Pulse Resp B/P (MAP) Pulse Ox O2 Delivery O2 Flow Rate FiO2 01/15/21 07:58 48 81/52 01/15/21 07:45 70 01/15/21 05:30 89 NIPPV (BIPAP/CPAP) 01/15/21 04:00 98.8 22 01/14/21 15:30 40.0 I&O- Last 24 Hours up to 6 AM 01/15/21 05:59 Intake Total 790 ml Output Total 900 ml Balance -110 ml DIPESH ANAYA DO Jan 15, 2021 08:10
[2021-01-15 08:16] LABS: ABG BASE EXCESS -4.7 (-2.0-2.0); ABG HCO3 18.9 MEQ/L (22.0-26.0); ABG O2 SATURATION 95.1 % (95.0-99.0); ABG PARTIAL PRESSURE CO2 30.5 mmHg (35.0-45.0); ABG STANDARD HCO3 20.5 MEQ/L (22.0-26.0); ABG TOTAL CO2 19.9 MEQ/L (22.0-29.0); ABG pH (ARTERIAL) 7.411 UNITS (7.350-7.450)
--- NOTE | 2021-01-15 11:08 | CR.PDOC ---
General Date of Consultation: Jan 15, 2021 Attending Physician: Michael Vasquez Consultation REASON FOR CONSULTATION/CHIEF COMPLAINT: Acute hypoxemic respiratory failure 2/2 COVID-19 Pneumonia HISTORY OF PRESENT ILLNESS: This is a 55-year-old male with a past medical history of ESRD w/ AV fistula on Left arm on dialysis Monday, Monday, Monday and HTN presenting to the ER with fever, chills, malaise, arthralgias, myalgias, diarrhea, and shortness of breath. He tested positive for COVID on 01/06 and was feeling well up until 01/09. Patient was seen at bedside today with no acute complaints. He did state that he feels that his breathing is improving. Denies subjective fevers, chills, night sweats, headache, chest pain, palpitations, n/v/d, constipation, abdominal pain, leg swelling ALLERGIES: Please see below. HOME MEDICATIONS: Please see below. PAST MEDICAL HISTORY: 1. ESRD with AV fistula on Left arm on dialysis Monday, Monday, Monday 2. Hypertension PAST SURGICAL HISTORY: 1. ACL repair FAMILY HISTORY: reviewed and noncontributory SOCIAL HISTORY: Tobacco use: denies ETOH: denies Illicit drug use: denies REVIEW OF SYSTEMS: CONSTITUTIONAL: denies fever, chills, night sweats HEENT: denies headaches, trouble swallowing CARDIOVASCULAR: denies palpations, denies chest pain RESPIRATORY: denies increased shortness of breath GENITOURINARY: denies dysuria MUSCULOSKELETAL: denies any muscle weakness GASTROINTESTINAL: denies n/v/d, constipation, abdominal pain NEUROLOGICAL: denies numbness or tingling PHYSICAL EXAMINATION: VITAL SIGNS: Please see below. GENERAL APPEARANCE: lying down in bed; in no acute distress HEENT: head normocephalic atraumatic; EOMI, PERRLA, moist mucus membranes RESPIRATORY: lungs clear to auscultation b/l; coarse breath sounds; exam limited due to disposable stethoscope CARDIOVASCULAR: regular rate rhythm; S1 S2; no murmurs ABDOMEN: soft, nondistended, no tenderness to palpation EXTREMITIES: no pitting edema, b/l pedal pulses NEUROLOGICAL: CN II-XII grossly intact; no focal neurological deficits LABORATORY DATA: Please see below. ASSESSMENT/PLAN: This is a 55-year-old male with a past medical history of ESRD w/ AV fistula on Left arm on dialysis Monday, Monday, Monday and HTN admitted for acute hypoxemic respiratory failure 2/2 COVID-19 Pneumonia. # Acute hypoxemic respiratory failure 2/2 COVID-19 Pneumonia - continue with BIPAP; can continue to titrate; keep O2 sat >90% - continue remdesivir and dexamethasone - start baricitinib as pt is [place] [id number] # ESRD on HD has a Left AV fistula -Nephrology has been consulted for the management of his dialysis; we appreciate their input on the care of this patient; nephrology will coordinate HD for this pt as he is a negative pressure room -correct electrolyte abnormalities # Acute hypotension in the setting of chronic hypertension as well as bradycardia - d/c antihypertensives # GERD - continue pantoprazole # DVT prophylaxis -Heparin 5000 U q8h -continue to monitor D-dimer Vital Signs/I&O Vital Signs Date Time Temp Pulse Resp B/P (MAP) Pulse Ox O2 Delivery O2 Flow Rate FiO2 01/15/21 08:04 53 103/62 (76) 92 NIPPV (BIPAP/CPAP) 70 01/15/21 07:56 97.6 26 01/14/21 15:30 40.0 I&O- Last 24 Hours up to 6 AM 01/15/21 06:00 Intake Total 670 ml Output Total 900 ml Balance -230 ml Laboratory Data Labs 24H Laboratory Tests 2 01/14/21 11:40: Lab Scanned Report Miscellaneous Lab 01/14/21 17:23: Blood Gas Bicarbonate Standard 22.5, Arterial Blood pH 7.445, Arterial Blood Partial Pressure CO2 31.5L, Arterial Blood Partial Pressure O2 64.2L, Arterial Blood Total CO2 22.1, Arterial Blood HCO3 21.2L, Arterial Blood Base Excess - 2.2L, Arterial Blood Oxygen Saturation 91.0L 01/15/21 03:57: Prothrombin Time 13.9, Prothromb Time International Ratio 1.03, Activated Partial Thromboplast Time 33.9, Fibrinogen 606H, Anion Gap 18H, Glomerular Filtration Rate 3.9L, Calcium Level 8.9, Ferritin 55178J, Total Bilirubin 0.6, Direct Bilirubin 0.2, Aspartate Amino Transf (AST/SGOT) 74H, Alanine Aminotransferase (ALT/SGPT) 16, Alkaline Phosphatase 36L, Lactate Dehydrogenase 850H, Total Creatine Kinase 1266H, Troponin I 0.09#, VI-Fkg-S-Type Natriuretic Peptide 5496H, Total Protein 6.0L, Albumin 2.1L, Albumin/Globulin Ratio 0.5, Procalcitonin 2.35 01/15/21 08:07: Blood Gas Bicarbonate Standard 20.5L, Arterial Blood pH 7.411, Arterial Blood Partial Pressure CO2 30.5L, Arterial Blood Partial Pressure O2 83.0, Arterial Blood Total CO2 19.9L, Arterial Blood HCO3 18.9L, Arterial Blood Base Excess - 4.7L, Arterial Blood Oxygen Saturation 95.1 CBC/BMP Laboratory Tests 01/15/21 03:57 Microbiology Microbiology 01/13/21 Blood Culture - Preliminary, Resulted No growth after 24 hours . All specim... 01/13/21 Blood Culture - Preliminary, Resulted No growth after 24 hours . All specim... Allergies Coded Allergies: No Known Allergies (Unverified , 10/18/19) Home Medications Scheduled Amlodipine Besylate (Amlodipine Besylate) 5 Mg Tablet, 5 MG PO QHS, (Reported) Carvedilol (Carvedilol) 12.5 Mg Tablet, 12.5 MG PO BID, (Reported) Lidocaine/Prilocaine (Lidocaine-Prilocaine Cream) 2.5%/2.5% Cream..g., 1 APPLIC TOP ASDIRECTED, (Reported) APPLY TO FISTULA PRIOR TO DIALYSIS Losartan Potassium (Losartan Potassium) 50 Mg Tablet, 50 MG PO QHS, (Reported) Pantoprazole Sodium (Pantoprazole Sodium) 40 Mg Tablet.dr, 40 MG PO QHS, (Reported) Sevelamer Carbonate (Sevelamer Carbonate) 800 Mg Tablet, 800 MG PO TID, (Reported) GME ATTESTATION GME ATTESTATION My faculty preceptor for this patient encounter was physically present during the encounter and was fully available. All aspects of the patient interview, examination, medical decision making process, and medical care plan development were reviewed and approved by the faculty preceptor. The faculty preceptor is aware and concurs with the plan as stated in the body of this note and will attest to such by his/her cosignature. ATTENDING NOTE As above....I was physically present for the interview and exam and agree with the plan. Will add Baricitinib. Mayela Arcos 24, 2021 11:08 Michael Vasquez Jan 15, 2021 13:19
--- NOTE | 2021-01-15 11:21 | CR ---
CONSULTATION DATE: 01/14/2021 REQUESTING PHYSICIAN: Avery Watts MD REASON FOR CONSULTATION: Management of end-stage renal disease and hemodialysis. CHIEF COMPLAINT: The patient presented to the hospital yesterday with difficulty breathing. HISTORY OF PRESENT ILLNESS: Cory Quezada is a 55-year-old male with past medical history of end-stage renal disease on hemodialysis. Currently gets hemodialysis at [facility], history of hypertension, well known to nephrology service from outpatient clinic and dialysis center. He recently presented to the hospital about two days ago with shortness of breath. He was tested positive for COVID. He signed out against medical advice from the emergency room (ER). However, he came back to the hospital again today morning because of progressive shortness of breath, weakness, lethargy, decreased oral intake for the last one week almost, generalized muscle aches and pains and diarrhea. He was requiring oxygen 2 liters nasal canula and oxygen requirement kept increasing. He was admitted under the hospitalist service at the [facility] isolation unit and he was started on IV steroids and remdesivir. Nephrology service was called for further help in the management of this patient hemodialysis I saw and evaluated the patient today morning in the COVID 19 isolation unit and again in the evening in the ICU. The patient was able to provide some history. However because of shortness of breath, he was wearing a non-breather and was not able to talk in complete sentences. Later on because of his worsening shortness of breath, the patient had to be transferred to ICU and he was placed on BIPAP and I went and saw the patient again in the ICU in the evening. PAST MEDICAL HISTORY: 1 End-stage renal disease on hemodialysis. 2 History of hypertension. 3 Anemia and end-stage renal disease. PAST SURGICAL HISTORY: Status post placement of AV fistula in the left arm and anterior cruciate ligament repair in the past. ALLERGIES: No known drug allergies.. FAMILY HISTORY: No significant family history of end-stage renal disease. SOCIAL HISTORY: The patient lives with his fianc. He denies any drinking or illicit drug abuse. REVIEW OF SYSTEMS: Constitutional: The patient reports feeling weak and tired. Eyes: He denies any blurry vision or double vision. ENT: Denies any dysphagia, odynophagia. Cardiovascular: Denies any chest pain. Respiratory: Reports progressive shortness of breath. Gastrointestinal (GI): Reports decreased oral intake and diarrhea. Genitourinary (): Reports decreased urine output. Musculoskeletal: Reports generalized myalgia. Skin: Denies any rashes or ulcers. Hematological/oncological: Denies any easy bleeding or bruising. Psychiatric: Denies any depression or anxiety. SIENE MAKER: Reports weakness, otherwise denies any strokes or seizures. All other review of systems is negative. PHYSICAL EXAMINATION: General: The patient is awake, alert and oriented times three, in moderate respiratory distress. Vital signs: Temperature 101.6 degrees Fahrenheit at night. When I saw him, his temperature was 97 degrees Fahrenheit, blood pressure 93/59, pulse is 66, respiratory rate of 20, saturating 92% on non-breather at 50 liters. Head and neck examination: Extraocular muscles are intact. Pupils equally round and reactive to light. Mucous membranes are moist. Neck is supple. There is no jugular venous distention (JVD). Cardiovascular: S1, S2, regular rate. No edema of the bilateral lower extremities. Respiratory: Decreased breath sounds at the bases and decreased inspiratory crackles bilaterally at the bases. Abdomen: Soft, positive bowel sounds. Nontender. No organomegaly. Musculoskeletal: No clubbing or cyanosis. Left upper arm AV fistula with thrill and bruit SIENE MAKER: No focal deficits. Power is 5/5 in all extremities. LABORATORY DATA: Complete blood count (CBC) showed a WBC of 7.4, hemoglobin 10.4, platelets are 156. D-dimer is 3317. Arterial blood gas done in the morning showed pH of 7.43, pCO2 of 33, pO2 of 110, bicarbonate 22.6, O2 saturation 97.5%; and again in the evening after the patient needed a BIPAP placement, his arterial blood gas showed pH of 7.44, pCO2 of 31.5, pO2 64.2. Bicarbonate 21.2, O2 saturation 91%. Basic metabolic panel (BMP) done today morning showed sodium 134, potassium 4.2, chloride 95, bicarbonate 25, BUN 77, creatinine is 13. Glucose 126, calcium 8.3, phosphorus 8.7, magnesium 2.6. AST 84, ALT is 17, alkaline phosphatase is 35. MICROBIOLOGY: Blood cultures are negative so far. COVID 19 was positive in the emergency room. IMAGING: A chest x-ray was done last night , which showed diffuse bilateral infiltrates. CURRENT INPATIENT MEDICATIONS: The patient is getting IV remdesivir 200 mg stat, followed by 100 mg IV daily, Mucinex 600 mg by mouth twice a day, Tylenol as needed, Combivent 1 puff q 4 hours, amlodipine 5 mg by mouth daily, Coreg 12.5 mg by mouth twice a day, Decadron 6 mg IV q 24 hours, heparin 5000 units subcutaneous q 8 hours, losartan 50 mg by mouth every night at bedtime, Protonix 40 mg by mouth every night at bedtime, Renvela 800 mg by mouth three times a day. ASSESSMENT AND PLAN: 1. End-stage renal disease. Today is supposed to be the patient's regular day of dialysis. Last dialysis was done on January 12. However, before we could take the patient for dialysis, his shortness of breath got worse and he had to be transferred to ICU on BIPAP. He is in the ICU in a negative pressure room and that room does not have connection for dialysis. We were unable to perform dialysis on this patient. However, the patient does not have any signs of fluid overload; pH on the arterial blood gas is 7.44. Potassium is within the acceptable range. Bicarbonate is 25. There is no urgent need to do dialysis overnight. However, we need to arrange the logistics of having him transported to a room that has water connection. Since the patient is otherwise hemodynamically stable, I am hopeful that we should be able to do bedside regular dialysis. I would not recommend placing a dialysis catheter in this patient and starting him on continuous veno-venous hemodialysis (CVVHD) until it is absolutely necessary. I have talked to the nursing staff in the ICU to try to arrange water in the room or move him to a room that has dialysis connection available. 2. Anemia and end-stage renal disease. Because of history of COVID 19 infection and risk of clots, the patient will not be given erythropoietin stimulating agent until his hemoglobin drops below 9. 3. Severe COVID 19 pneumonia requiring BIPAP placement. The patient was hypoxemic. He is currently getting steroids and remdesivir. The rest of the management is per medical team and pulmonary critical care service. 4. History of hypertension. The patient is critically ill. Blood pressures are soft. I have stopped his amlodipine and losartan. Coreg dose has been decreased to 6.25 mg by mouth twice a day with holding parameters. 5. Chronic kidney disease, mineral bone disease. The patient is not eating much. I have stopped his phosphorous binders at this time. 6. Protein calorie malnutrition; it is secondary to poor oral intake with severe sickness and end-stage renal disease. Protein shakes will be given once the patient is stable to take more food orally. Thank you for involving me in the care of this patient. I shall be happy to follow the patient along with you tomorrow morning. Total critical care time spent in the management of this patient today morning in the [place] [address] isolation unit and again in the evening in the ICU was 1 hour and 40 minutes, excluding all the procedures. MTDD
[2021-01-15] MEDS: dexameTHASONE 4 MG/ML 1ML VIAL (J1100 PER 1MG) IV SCH (19:58)
[2021-01-15] MEDS: BENZONATATE 100MG CAPSULE PO PRN (19:58)
[2021-01-15] MEDS: PANTOPRAZOLE 40MG TAB (PROTONIX) PO SCH (19:59)
[2021-01-15] MEDS: REMDESIVIR 100 MG in NS 250 ML IV SCH (20:00)
--- NOTE | 2021-01-15 22:21 | IPNPDOC ---
Subjective CC/HPI The patient is a 55-year-old male admitted with a reason for visit of Acute Hypoxemic Respiratory Failure Due To Covid19. Events since last encounter Pt was seen in AM in ICU, COVID 19 negative pressure room. He is on Bipap and reports feeling better. He was oxygenating well with ~70% FiO2. We have been working to get the water connection established to do HD at bedside. General: Reports: Chills, Fatigue, Malaise Constitutional: Reports: Malaise, Weakness Eyes: Denies: Pain, Vision change ENT: Reports: Head Aches; Denies: Ear Pain Skin: Denies: Rash, Lesions Pulmonary: Reports: Dyspnea, Cough (COVID 19 pneumonia) Cardiovascular: Reports: Orthopnea; Denies: Chest Pain, Palpitations Gastrointestinal: Denies: Nausea, Vomiting, Abdominal Pain Genitourinary: Denies: Dysuria, Frequency Hematologic: Denies: Bruising Musculoskeletal: Denies: Neck Pain, Back Pain Neurological: Reports: Weakness Psych: Reports: Anxiety Objective Physical Examination General Exam: Alert, Moderate Distress (Resp distress on Bipap) EYE EXAM: PERRLA, Conjunctiva & lids normal, EOMI ENT EXAM: Atraumatic, Mucous membr. moist/pink Neck Exam: Supple; No: JVD, thyromegaly Chest Exam: Rales (Mild at bases), Diminished, Other (Wearing Bipap) Heart Exam: Rate Normal, Normal S1, Normal S2 ABDOMEN EXAM: Soft; No: Tenderness, Hepatospenomegaly Male Exam: Normal Genital Exam Extremity Exam: No: Clubbing, Edema Skin Exam: No: Nl turgor and temperature, Rash Neuro Exam: Reflexes 2+; No: Normal Speech (Difficult speech due to shortness of breath) Psych Exam: Mental status NL, Mood NL Vital Signs/I&O Vital Signs Date Time Temp Pulse Resp B/P (MAP) Pulse Ox O2 Delivery O2 Flow Rate FiO2 01/15/21 20:00 90 01/15/21 20:00 96.0 55 22 114/68 (83) 100 NIPPV (BIPAP/CPAP) 01/14/21 15:30 40.0 I&O- Last 24 Hours up to 6 AM 01/15/21 06:00 Intake Total 670 ml Output Total 900 ml Balance -230 ml Laboratory Data Labs 24H Laboratory Tests 2 01/15/21 03:57: Prothrombin Time 13.9, Prothromb Time International Ratio 1.03, Activated Partial Thromboplast Time 33.9, Fibrinogen 606H, Anion Gap 18H, Glomerular Filtration Rate 3.9L, Calcium Level 8.9, Ferritin 67647L, Total Bilirubin 0.6, Direct Bilirubin 0.2, Aspartate Amino Transf (AST/SGOT) 74H, Alanine Aminotransferase (ALT/SGPT) 16, Alkaline Phosphatase 36L, Lactate Dehydrogenase 850H, Total Creatine Kinase 1266H, Troponin I 0.09#, QB-Drq-D-Type Natriuretic Peptide 5496H, Total Protein 6.0L, Albumin 2.1L, Albumin/Globulin Ratio 0.5, Procalcitonin 2.35 01/15/21 08:07: Blood Gas Bicarbonate Standard 20.5L, Arterial Blood pH 7.411, Arterial Blood Partial Pressure CO2 30.5L, Arterial Blood Partial Pressure O2 83.0, Arterial Blood Total CO2 19.9L, Arterial Blood HCO3 18.9L, Arterial Blood Base Excess - 4.7L, Arterial Blood Oxygen Saturation 95.1 CBC/BMP Laboratory Tests 01/15/21 03:57 Current Medications Current Medications Medications (Trade) Dose Ordered Sig/Oz Route PRN Reason Start Time Stop Time Status Last Admin Dose Admin Acetaminophen (Tylenol Tab) 650 mg Q6HP PRN PO MILD PAIN or TEMP > 101 01/13/21 21:40 01/13/21 22:09 Albuterol/ Ipratropium (Combivent Respimat 100-20mcg) 1 puff RQ4H INH 01/14/21 00:00 01/15/21 19:12 Amlodipine Besylate (Norvasc) 5 mg QHS PO 01/13/21 21:00 01/14/21 22:33 DC 01/14/21 20:21 Benzonatate (Tessalon Perles) 100 mg TIDP PRN PO COUGH 01/13/21 21:40 01/15/21 19:58 Carvedilol (COReg) 6.25 mg BID PO 01/15/21 09:00 Carvedilol (COReg) 12.5 mg BID PO 01/13/21 21:00 01/14/21 22:35 DC 01/14/21 20:22 Dexamethasone (Decadron) 6 mg Q24H IV 01/13/21 18:00 01/14/21 17:36 DC 01/13/21 20:13 Dexamethasone (Decadron) 6 mg Q24H IV 01/14/21 21:00 01/22/21 21:01 01/15/21 19:58 Guaifenesin (Mucinex Tab Er) 600 mg BID PO 01/13/21 21:00 01/15/21 08:11 DC 01/14/21 20:21 Heparin Sodium (Heparin) Please refer to ... ASDIRECTED XX 01/14/21 11:00 01/15/21 10:59 DC Heparin Sodium (Porcine) (Heparin) 5,000 units Q8H SQ 01/13/21 22:00 01/15/21 21:35 Home Med (Home Med List Complete!) ASDIRECTED XX 01/13/21 15:20 01/13/21 15:18 DC Lidocaine HCl (Lidocaine 1% Sdv) 0.5 ml ASDIRECTED PRN SC SEE LABEL COMMENTS 01/14/21 11:00 01/15/21 10:59 DC Losartan Potassium (Cozaar) 50 mg QHS PO 01/13/21 21:00 01/14/21 22:37 DC 01/14/21 20:22 Pantoprazole Sodium (Protonix) 40 mg QHS PO 01/13/21 21:00 01/15/21 19:59 Remdesivir 100 mg/ Sodium Chloride 270 ml @ 270 mls/hr Q24H IV 01/14/21 21:00 01/18/21 20:59 01/15/21 20:00 Sevelamer Carbonate (Renvela) 800 mg TID PO 01/13/21 21:00 01/14/21 22:34 DC 01/14/21 20:21 Sodium Chloride (Saline Lock Flush) 30 ml Q24H IV 01/14/21 22:00 01/18/21 21:59 01/14/21 22:39 Allergies Coded Allergies: No Known Allergies (Unverified , 10/18/19) Assessment/Plan Date Seen The patient was seen on 01/15/21 in AM. Plan / VTE VTE Prophylaxis Ordered?: Yes Plan Orders past 48 Hours Orders Arterial Blood Gas (01/14/21 00:11) Albuterol/Ipratropium Inh (Combivent Res (01/14/21 00:00) * Nursing Order * (01/14/21 01:23) Resp Order Cpoe (01/14/21 ) Fingerstick Blood Sugar (01/14/21 06:19) Heparin (Heparin) (01/14/21 11:00) Lidocaine 1% Sdv (Lidocaine 1% Sdv) (01/14/21 11:00) 2 Gram Sodium Diet (01/14/21 Dinner) Transfer (In House) (01/14/21 15:04) Bipap Inpatient (01/14/21 15:08) Pulmonology Consult (01/14/21 17:00) Arterial Blood Gas (01/14/21 17:15) Dexamethasone (Decadron) (01/14/21 21:00) Carvedilol (Coreg) (01/15/21 09:00) Arterial Blood Gas (01/15/21 07:58) Npo Diet Except Meds (01/15/21 Breakfast) Hemodialysis Acute Orders (01/15/21 10:00) * Nursing Order * (01/15/21 10:29) Plan Text 1. End-stage renal disease. Today is supposed to be the patient's regular day of dialysis. He has working AVF in Lt arm. HD to be done after water connection is established in room. Techs are working. 2. Anemia and end-stage renal disease. Because of history of COVID 19 infection and risk of clots, the patient will not be given erythropoietin stimulating agent until his hemoglobin drops below 9. 3. Severe COVID 19 pneumonia requiring BIPAP placement. He is currently getti ng steroids and remdesivir. 4. Hypotension. The patient is critically ill. Blood pressures are soft. All antihypertensives are on hold. 5. Chronic kidney disease, mineral bone disease. The patient is not eating much. I have stopped his phosphorous binders at this time. 6. Protein calorie malnutrition; it is secondary to poor oral intake with severe sickness and end-stage renal disease. Protein shakes will be given once the patient is stable to take more food orally. JANEEN TAVERAS MD Jan 15, 2021 22:21
[2021-01-15] MEDS: SODIUM CHLORIDE 0.9% INJ 10 ML SYR IV SCH (22:37)
[2021-01-16] VITALS: BP 112/72
[2021-01-16] MEDS: COMBIVENT RESPIMAT 100-20MCG INHALER 4GM INH SCH ×7 (01:11→20:00)
[2021-01-16 04:00] VITALS: BP 116/68
[2021-01-16] MEDS: HEPARIN SOD (PORCINE) 5000UNITS/ML 1ML VIAL/SYRINGE SQ SCH ×3 (05:21→21:09)
[2021-01-16 08:00] VITALS: BP 113/60
[2021-01-16] MEDS: CARVedilol 6.25 MG TAB PO SCH (08:24)
[2021-01-16 08:32] LABS: ALBUMIN 2.3 GM/DL (3.2-5.2); CALCIUM LEVEL 8.9 MG/DL (8.5-10.1); CREATININE FOR GFR 10.2 MG/DL (0.70-1.30); GLOMERULAR FILTRATION RATE 5.7 (>56); PHOSPHORUS LEVEL 8.4 MG/DL (2.5-4.9); POTASSIUM SERUM 4.6 MEQ/L (3.5-5.1)
--- NOTE | 2021-01-16 10:59 | IPNPDOC ---
Subjective CC/HPI The patient is a 55-year-old male admitted with a reason for visit of Acute Hypoxemic Respiratory Failure Due To Covid19. Events since last encounter Pt was dialyzed at bedside yesterday. Around 500 ml fluid was removed. He in on vapotherm now at 80% FiO2. He is feeling better today as compared with yesterday. General: Reports: Fatigue, Malaise; Denies: Chills, Night Sweats Constitutional: Reports: Malaise, Weakness; Denies: Chills, Fever Eyes: Denies: Pain, Vision change ENT: Denies: Head Aches, Ear Pain Skin: Denies: Rash, Lesions Pulmonary: Reports: Dyspnea, Cough Cardiovascular: Denies: Chest Pain, Palpitations Gastrointestinal: Denies: Nausea, Vomiting Genitourinary: Denies: Dysuria, Frequency Hematologic: Denies: Bruising, Bleeding Excessively Musculoskeletal: Denies: Neck Pain, Back Pain Neurological: Reports: Weakness; Denies: Confusion Psych: Reports: Anxiety Objective Physical Examination General Exam: Alert, Moderate Distress (Resp distress on vapotherm) EYE EXAM: PERRLA, Conjunctiva & lids normal, EOMI ENT EXAM: Atraumatic, Mucous membr. moist/pink Neck Exam: Supple; No: JVD, thyromegaly Chest Exam: Rales (Mild at bases), Diminished, Other (Wearing vapotherm) Heart Exam: Rate Normal, Normal S1, Normal S2 ABDOMEN EXAM: Soft; No: Tenderness, Hepatospenomegaly Male Exam: Normal Genital Exam Extremity Exam: No: Clubbing, Edema Skin Exam: No: Nl turgor and temperature, Rash Neuro Exam: Reflexes 2+; No: Normal Speech (Difficult speech due to shortness of breath) Psych Exam: Mental status NL, Mood NL, Oriented x 3 Vital Signs/I&O Vital Signs Date Time Temp Pulse Resp B/P (MAP) Pulse Ox O2 Delivery O2 Flow Rate FiO2 01/16/21 08:24 52 01/16/21 08:10 98 HVNI-Vapotherm 35.0 80 01/16/21 08:00 97.3 20 113/60 (77) I&O- Last 24 Hours up to 6 AM 01/16/21 06:00 Intake Total 960 ml Output Total 850 ml Balance 110 ml Laboratory Data Labs 24H Laboratory Tests 2 01/16/21 07:43: Anion Gap 13, Glomerular Filtration Rate 5.7L, Calcium Level 8.9, Phosphorus Level 8.4H, Albumin 2.3L CBC/BMP Laboratory Tests 01/16/21 07:43 Current Medications Current Medications Medications (Trade) Dose Ordered Sig/Oz Route PRN Reason Start Time Stop Time Status Last Admin Dose Admin Acetaminophen (Tylenol Tab) 650 mg Q6HP PRN PO MILD PAIN or TEMP > 101 01/13/21 21:40 01/13/21 22:09 Albuterol/ Ipratropium (Combivent Respimat 100-20mcg) 1 puff RQ4H INH 01/14/21 00:00 01/16/21 08:10 Amlodipine Besylate (Norvasc) 5 mg QHS PO 01/13/21 21:00 01/14/21 22:33 DC 01/14/21 20:21 Baricitinib (Olumiant) 2 mg DAILY PO 01/16/21 11:00 Benzonatate (Tessalon Perles) 100 mg TIDP PRN PO COUGH 01/13/21 21:40 01/15/21 19:58 Carvedilol (COReg) 6.25 mg BID PO 01/15/21 09:00 01/16/21 08:51 DC Carvedilol (COReg) 12.5 mg BID PO 01/13/21 21:00 01/14/21 22:35 DC 01/14/21 20:22 Dexamethasone (Decadron) 6 mg Q24H IV 01/13/21 18:00 01/14/21 17:36 DC 01/13/21 20:13 Dexamethasone (Decadron) 6 mg Q24H IV 01/14/21 21:00 01/22/21 21:01 01/15/21 19:58 Guaifenesin (Mucinex Tab Er) 600 mg BID PO 01/13/21 21:00 01/15/21 08:11 DC 01/14/21 20:21 Heparin Sodium (Heparin) Please refer to ... ASDIRECTED XX 01/14/21 11:00 01/15/21 10:59 DC Heparin Sodium (Porcine) (Heparin) 5,000 units Q8H SQ 01/13/21 22:00 01/16/21 05:21 Home Med (Home Med List Complete!) ASDIRECTED XX 01/13/21 15:20 01/13/21 15:18 DC Lidocaine HCl (Lidocaine 1% Sdv) 0.5 ml ASDIRECTED PRN SC SEE LABEL COMMENTS 01/14/21 11:00 01/15/21 10:59 DC Losartan Potassium (Cozaar) 50 mg QHS PO 01/13/21 21:00 01/14/21 22:37 DC 01/14/21 20:22 Pantoprazole Sodium (Protonix) 40 mg QHS PO 01/13/21 21:00 01/15/21 19:59 Remdesivir 100 mg/ Sodium Chloride 270 ml @ 270 mls/hr Q24H IV 01/14/21 21:00 01/18/21 20:59 01/15/21 20:00 Sevelamer Carbonate (Renvela) 800 mg TID PO 01/13/21 21:00 01/14/21 22:34 DC 01/14/21 20:21 Sodium Chloride (Saline Lock Flush) 30 ml Q24H IV 01/14/21 22:00 01/18/21 21:59 01/15/21 22:37 Allergies Coded Allergies: No Known Allergies (Unverified , 10/18/19) Assessment/Plan Date Seen The patient was seen on 01/16/21 in AM. Plan / VTE VTE Prophylaxis Ordered?: Yes Plan Orders past 48 Hours Orders Heparin (Heparin) (01/14/21 11:00) Lidocaine 1% Sdv (Lidocaine 1% Sdv) (01/14/21 11:00) 2 Gram Sodium Diet (01/14/21 Dinner) Transfer (In House) (01/14/21 15:04) Bipap Inpatient (01/14/21 15:08) Pulmonology Consult (01/14/21 17:00) Arterial Blood Gas (01/14/21 17:15) Dexamethasone (Decadron) (01/14/21 21:00) Carvedilol (Coreg) (01/15/21 09:00) Arterial Blood Gas (01/15/21 07:58) Npo Diet Except Meds (01/15/21 Breakfast) Hemodialysis Acute Orders (01/15/21 10:00) * Nursing Order * (01/15/21 10:29) Renal Profile (01/16/21 07:20) Renal Profile (01/17/21 06:00) Renal Profile (01/18/21 06:00) Renal Profile (01/19/21 06:00) Renal Profile (01/20/21 06:00) Renal Profile (01/21/21 06:00) Renal Profile (01/22/21 06:00) Renal Profile (01/23/21 06:00) Complete Blood Count (01/17/21 06:00) Complete Blood Count (01/19/21 06:00) Renal Diet (01/16/21 Lunch) Baricitinib (Olumiant) (01/16/21 11:00) Plan Text 1. End-stage renal disease. HD done yesterday. He tolerated it well. Next HD will be on Monday. 2. Anemia and end-stage renal disease. Because of history of COVID 19 infection and risk of clots, the patient will not be given erythropoietin stimulating agent until his hemoglobin drops below 9. 3. Severe COVID 19 pneumonia: He is on Vapotherm now. Feeling better today. He is currently getting steroids and remdesivir. 4. Hypotension. The patient is critically ill. Blood pressures are soft. All antihypertensives are on hold. 5. Chronic kidney disease, mineral bone disease. The patient is not eating much. I have stopped his phosphorous binders at this time. 6. Protein calorie malnutrition; it is secondary to poor oral intake. Start Nepro with lunch. JANEEN TAVERAS MD Jan 16, 2021 10:58
[2021-01-16] MEDS: BARICITINIB 2MG TABLET (OLUMIANT) FOR EUA PO SCH (11:20)
[2021-01-16 12:00] VITALS: BP 118/71
--- NOTE | 2021-01-16 12:48 | IPNPDOC ---
Text Note Date of Service The patient was seen on 01/16/21. NOTE Hospitalist Progress Note Subjective: We were able to maintain the patient saturations on BiPAP throughout the day yesterday, and through the evening last night. As a matter fact early this morning he was switched over to Vapotherm, and is continuing to maintain saturations at this time. If he continues to do well throughout the day, may consider transferring out of the ICU on back to the [facility] floor. Since he is no longer on BiPAP, will restart a diet for him. Otherwise, continue with same plan as listed below. Objective: General: Awake, alert, oriented 3. Not in any acute distress at this time. Currently wearing BiPAP mask. HEENT: Head normocephalic, atraumatic, sclera are nonicteric. Hearing is grossly intact to conversation. Respiratory: Perhaps faint/minimal crackles noted at the left base, otherwise the remainder of the lung benton are diminished, exam is limited by the use of disposable stethoscope. Cardiovascular: Bradycardic rate with what appears to be a normal rhythm, with no rubs, gallops, or murmur. Abdomen: Soft, nontender, nondistended, no hepatosplenomegaly appreciated. Bowel sounds present. Extremities: 2+ pulses in the radial and dorsalis pedis bilaterally. No evidence of clubbing or cyanosis. No edema noted. Multiple tattoos. Assessment/Plan: COVID-19 pneumonia -If patient continues to do well on Vapotherm throughout the day today, may consider transferring back to the [facility] floor -Continue to titrate to maintain oxygen saturations above 90% -Continue remdesivir -Continue baricitinib -Continue dexamethasone End-stage renal disease requiring hemodialysis -Nephrology has been consulted for the management of his dialysis. Their input is greatly appreciated. Acute hypotension in the setting of chronic hypertension Bradycardia -Patient continues to be normotensive at this time with a pulse in the 50-60s, therefore we will continue to hold his antihypertensives and and beta-steven GERD -Continue home dose of pantoprazole DVT prophylaxis -Heparin VS,Fishbone, I+O VS, Fishbone, I+O Laboratory Tests 01/16/21 07:43 Vital Signs Date Time Temp Pulse Resp B/P (MAP) Pulse Ox O2 Delivery O2 Flow Rate FiO2 01/16/21 12:00 30.0 80 01/16/21 12:00 97.6 66 20 118/71 (12) 98 HVNI-Vapotherm I&O- Last 24 Hours up to 6 AM 01/16/21 06:00 Intake Total 960 ml Output Total 850 ml Balance 110 ml DIPESH ANAYA DO Jan 16, 2021 12:48
[2021-01-16 16:00] VITALS: BP 106/68
--- NOTE | 2021-01-16 16:17 | IPN ---
PROGRESS NOTE DATE: 01/16/2021 I again attended [facility] here in the intensive care unit. Patient was examined, chart reviewed. He was on bilevel positive airway pressure (BiPAP) overnight, but this morning he has been able to be transitioned back over to VapoTherm. On 70%-80% oxygen saturations 96%-98%. He has been proning. He said he feels much better this morning and is actually hungry. He did get dialysis yesterday. No recent lab work regarding hematology this morning, but chemistries show sodium 141, potassium 4.6, chloride 100, CO2 of 20, BUN 75, creatinine 10.2. Ferritin yesterday was 18,000. We will repeat that tomorrow. Medication list is reviewed. He remains on remdesivir and Decadron. Barictitnib was ordered yesterday, but I had not seen that that was administered. Maximum temperature (T-max) overnight 97.3, blood pressure 112-116, heart rate generally in the 50s to the 70s with a sinus mechanism, respiratory rate 18-22 and unlabored. HEENT: Otherwise normocephalic, atraumatic. Pupils reactive to light. Neck is soft and supple. Trachea is in midline. Membranes are moist. Chest shows some fine dependent crackles that improve with inspiratory effort. No focal wheeze or rhonchus. Cardiac exam is regular with no gallop. Peripheral pulses palpable. No evidence of edema. Abdomen soft, nontender with active bowel sounds. No convincing organomegaly or mass. Extremities show no cyanosis or clubbing. Neurologically, he is awake, alert, and appropriate. Psychiatric shows normal mood and affect. LABORATORY DATA: As outlined above. IMPRESSION: 1. COVID pneumonia. 2. Chronic renal failure, dialysis dependent. RECOMMENDATIONS: At this point he is tolerated VapoTherm. He did get dialyzed . I will check the status of the baricitinib, and we will repeat his inflammatory markers. If he is able to remain off of the noninvasive support for 24 hours, then I will allow transfer out of the intensive care unit. I do believe it is okay for him to eat today. He will be followed closely while he is here. Further recommendations will be made in the progress record as new information becomes available. There is still a likelihood for decompensation.
[2021-01-16] MEDS: PANTOPRAZOLE 40MG TAB (PROTONIX) PO SCH (19:21)
[2021-01-16] MEDS: dexameTHASONE 4 MG/ML 1ML VIAL (J1100 PER 1MG) IV SCH (19:21)
[2021-01-16] MEDS: REMDESIVIR 100 MG in NS 250 ML IV SCH (19:22)
[2021-01-16 20:00] VITALS: BP 121/81
[2021-01-16] MEDS: SODIUM CHLORIDE 0.9% INJ 10 ML SYR IV SCH (21:09)
[2021-01-17] VITALS (9 sets, daily range): BP systolic 129–144; BP diastolic 64–89; O2SAT 82–96
[2021-01-17] MEDS: ACETAMINOPHEN TAB 650MG DOSE (2X325MG) PO PRN ×2 (04:09→17:46)
[2021-01-17] MEDS: COMBIVENT RESPIMAT 100-20MCG INHALER 4GM INH SCH ×6 (04:27→20:36)
[2021-01-17 04:58] LABS: HEMOGLOBIN 10.3 g/dl (13.5-17.5); MEAN CORPUSCULAR HEMOGLOBIN 33.8 pg (27.0-33.0); MEAN CORPUSCULAR HGB CONC 34.3 g/dl (32.0-36.5); MEAN CORPUSCULAR VOLUME 98.4 fl (80.0-96.0); PLATELET COUNT, AUTOMATED 193 10^3/uL (150-450); RED BLOOD COUNT 3.05 10^6/uL (4.30-6.10); WHITE BLOOD COUNT 8.6 10^3/uL (4.0-10.0)
[2021-01-17 05:09] LABS: INR 1.08; PROTHROMBIN TIME 14.4 SECONDS (12.7-14.5)
[2021-01-17 05:10] LABS: PARTIAL THROMBOPLASTIN TIME 28.5 SECONDS (25.9-37.0)
[2021-01-17] MEDS: HEPARIN SOD (PORCINE) 5000UNITS/ML 1ML VIAL/SYRINGE SQ SCH ×3 (05:43→20:52)
[2021-01-17 06:06] LABS: ALBUMIN 2.1 GM/DL (3.2-5.2); BILIRUBIN,DIRECT 0.1 MG/DL (0.0-0.2); BILIRUBIN,TOTAL 0.5 MG/DL (0.2-1.0); CALCIUM LEVEL 9.1 MG/DL (8.5-10.1); CREATININE FOR GFR 11.5 MG/DL (0.70-1.30); POTASSIUM SERUM 4.1 MEQ/L (3.5-5.1); TOTAL PROTEIN 5.9 GM/DL (6.4-8.2); TROPONIN I 0.06 NG/ML (< 0.10)
[2021-01-17] MEDS: BARICITINIB 2MG TABLET (OLUMIANT) FOR EUA PO SCH (08:43)
--- NOTE | 2021-01-17 10:22 | IPNPDOC ---
Text Note Date of Service The patient was seen on 01/17/21. NOTE Hospitalist Progress Note Subjective: Patient has continued to maintain saturations for the past 24 hours on Vapotherm. At this time I will put in orders to have him transferred back to the [facility] floor. He is sitting upright in bed, he has been eating without issue. He is still quite winded, even from the exertion of sitting up in bed. Other than this though, he does not voice any other complaints at this time, and remainder of review of systems is negative. Objective: General: Awake, alert, oriented 3. Not in any acute distress at this time. Currently wearing Vapotherm nasal cannula HEENT: Head normocephalic, atraumatic, sclera are nonicteric. Hearing is grossly intact to conversation. Respiratory: Exam is limited by the use of disposable stethoscope, but it sounds as though his lungs are clear to auscultation throughout. Cardiovascular: Normal rate and rhythm, with no rubs, gallops, or murmur. Abdomen: Soft, nontender, nondistended, no hepatosplenomegaly appreciated. Extremities: 2+ pulses in the radial and dorsalis pedis bilaterally. No evidence of clubbing or cyanosis. No edema noted. Multiple tattoos. Assessment/Plan: COVID-19 pneumonia -Patient has maintained saturations on Vapotherm for the last 24 hours, will transfer him back to [facility]. -Continue to titrate oxygen supplementation to maintain saturations above 90% -Continue remdesivir -Continue baricitinib -Continue dexamethasone End-stage renal disease requiring hemodialysis -Nephrology has been consulted for the management of his dialysis. Their input is greatly appreciated. Acute hypotension in the setting of chronic hypertension Bradycardia -His pressure has improved and his bradycardia has resolved this morning. -Nevertheless, we will continue to hold his home dose of beta-steven and antihypertensives at this time. Will resume if he becomes hypertensive in the future. GERD -Continue home dose of pantoprazole DVT prophylaxis -Heparin VS,Fishbone, I+O VS, Fishbone, I+O Laboratory Tests 01/17/21 04:47 01/17/21 04:48 Vital Signs Date Time Temp Pulse Resp B/P (MAP) Pulse Ox O2 Delivery O2 Flow Rate FiO2 01/17/21 08:00 97.0 78 24 144/89 (107) 92 HVNI-Vapotherm 35.0 75 I&O- Last 24 Hours up to 6 AM 01/17/21 06:00 Intake Total 950 ml Output Total 675 ml Balance 275 ml DIPESH ANAYA DO Jan 17, 2021 10:22
--- NOTE | 2021-01-17 20:07 | IPNPDOC ---
Subjective CC/HPI The patient is a 55-year-old male admitted with a reason for visit of Acute Hypoxemic Respiratory Failure Due To Covid19. Events since last encounter Pt started on Baricitinib yesterday. He was eating his breakfast and was on Vapotherm. Feeling better. General: Denies: Chills, Night Sweats Constitutional: Denies: Chills, Fever Eyes: Denies: Pain, Vision change ENT: Denies: Head Aches, Ear Pain Skin: Denies: Rash, Lesions Pulmonary: Reports: Dyspnea Cardiovascular: Denies: Chest Pain, Palpitations Gastrointestinal: Denies: Nausea, Vomiting Genitourinary: Denies: Dysuria, Frequency Neurological: Reports: Weakness Psych: Reports: Mood Normal Objective Physical Examination General Exam: Alert, Mild Distress (currently on Vapotherm.) EYE EXAM: PERRLA, Conjunctiva & lids normal, EOMI ENT EXAM: Atraumatic, Mucous membr. moist/pink Neck Exam: Supple; No: JVD, thyromegaly Chest Exam: Rales (Mild at bases), Diminished, Other (Wearing vapotherm) Heart Exam: Rate Normal, Normal S1, Normal S2 ABDOMEN EXAM: Soft; No: Tenderness, Hepatospenomegaly Male Exam: Normal Genital Exam Extremity Exam: No: Clubbing, Edema Skin Exam: No: Nl turgor and temperature, Rash Neuro Exam: Reflexes 2+; No: Normal Speech (Difficult speech due to shortness of breath) Psych Exam: Mental status NL, Mood NL, Oriented x 3 Vital Signs/I&O Vital Signs Date Time Temp Pulse Resp B/P (MAP) Pulse Ox O2 Delivery O2 Flow Rate FiO2 01/17/21 17:11 97 HVNI-Vapotherm 35.0 70 01/17/21 16:00 97.8 61 22 131/69 (89) I&O- Last 24 Hours up to 6 AM 01/17/21 06:00 Intake Total 950 ml Output Total 675 ml Balance 275 ml Laboratory Data Labs 24H Laboratory Tests 2 01/17/21 04:47: Prothrombin Time 14.4H, Prothromb Time International Ratio 1.08, Activated Partial Thromboplast Time 28.5, Fibrinogen 427, Anion Gap 12, Glomerular Filtration Rate 5.0L, Calcium Level 9.1, Phosphorus Level 8.0H, Ferritin 71233R, Total Bilirubin 0.5, Direct Bilirubin 0.1, Aspartate Amino Transf (AST/SGOT) 55H, Alanine Aminotransferase (ALT/SGPT) 19, Alkaline Phosphatase 44L, Lactate Dehydrogenase 798H, Total Creatine Kinase 741H, Troponin I 0.06, GA-Mon-F-Type Natriuretic Peptide 3657H, Total Protein 5.9L, Albumin 2.1L, Albumin/Globulin Ratio 0.6 01/17/21 04:48: Nucleated Red Blood Cells % (auto) 0.0, Procalcitonin 1.18 CBC/BMP Laboratory Tests 01/17/21 04:47 01/17/21 04:48 Current Medications Current Medications Medications (Trade) Dose Ordered Sig/Oz Route PRN Reason Start Time Stop Time Status Last Admin Dose Admin Acetaminophen (Tylenol Tab) 650 mg Q6HP PRN PO MILD PAIN or TEMP > 101 01/13/21 21:40 01/17/21 17:46 Albuterol/ Ipratropium (Combivent Respimat 100-20mcg) 1 puff RQ4H INH 01/14/21 00:00 01/17/21 16:00 Amlodipine Besylate (Norvasc) 5 mg QHS PO 01/13/21 21:00 01/14/21 22:33 DC 01/14/21 20:21 Baricitinib (Olumiant) 2 mg DAILY PO 01/16/21 11:00 01/17/21 08:43 Benzonatate (Tessalon Perles) 100 mg TIDP PRN PO COUGH 01/13/21 21:40 01/15/21 19:58 Carvedilol (COReg) 6.25 mg BID PO 01/15/21 09:00 01/16/21 08:51 DC Carvedilol (COReg) 12.5 mg BID PO 01/13/21 21:00 01/14/21 22:35 DC 01/14/21 20:22 Dexamethasone (Decadron) 6 mg Q24H IV 01/13/21 18:00 01/14/21 17:36 DC 01/13/21 20:13 Dexamethasone (Decadron) 6 mg Q24H IV 01/14/21 21:00 01/22/21 21:01 01/16/21 19:21 Guaifenesin (Mucinex Tab Er) 600 mg BID PO 01/13/21 21:00 01/15/21 08:11 DC 01/14/21 20:21 Heparin Sodium (Heparin) Please refer to ... ASDIRECTED XX 01/14/21 11:00 01/15/21 10:59 DC Heparin Sodium (Heparin) Please refer to ... ASDIRECTED XX 01/18/21 06:00 01/19/21 05:59 Heparin Sodium (Porcine) (Heparin) 5,000 units Q8H SQ 01/13/21 22:00 01/17/21 13:22 Home Med (Home Med List Complete!) ASDIRECTED XX 01/13/21 15:20 01/13/21 15:18 DC Lidocaine HCl (Lidocaine 1% Sdv) 0.5 ml ASDIRECTED PRN SC SEE LABEL COMMENTS 01/14/21 11:00 01/15/21 10:59 DC Lidocaine HCl (Lidocaine 1% Sdv) 0.5 ml ASDIRECTED PRN SC SEE LABEL COMMENTS 01/18/21 06:00 01/18/21 08:29 Losartan Potassium (Cozaar) 50 mg QHS PO 01/13/21 21:00 01/14/21 22:37 DC 01/14/21 20:22 Pantoprazole Sodium (Protonix) 40 mg QHS PO 01/13/21 21:00 01/16/21 19:21 Remdesivir 100 mg/ Sodium Chloride 270 ml @ 270 mls/hr Q24H IV 01/14/21 21:00 01/18/21 20:59 01/16/21 19:22 Sevelamer Carbonate (Renvela) 800 mg TID PO 01/13/21 21:00 01/14/21 22:34 DC 01/14/21 20:21 Sodium Chloride (Saline Lock Flush) 30 ml Q24H IV 01/14/21 22:00 01/18/21 21:59 01/16/21 21:09 Allergies Coded Allergies: No Known Allergies (Unverified , 10/18/19) Assessment/Plan Date Seen The patient was seen on 01/17/21 in AM. Plan / VTE VTE Prophylaxis Ordered?: Yes Plan Orders past 48 Hours Orders Renal Profile (01/16/21 07:20) Renal Profile (01/18/21 06:00) Renal Profile (01/19/21 06:00) Renal Profile (01/20/21 06:00) Renal Profile (01/21/21 06:00) Renal Profile (01/22/21 06:00) Renal Profile (01/23/21 06:00) Complete Blood Count (01/17/21 06:00) Complete Blood Count (01/19/21 06:00) Renal Diet (01/16/21 Lunch) Baricitinib (Olumiant) (01/16/21 11:00) Renal Profile (01/17/21 06:00) Transfer (In House) (01/17/21 07:27) Hemodialysis Acute Orders (01/18/21 06:00) Heparin (Heparin) (01/18/21 06:00) Lidocaine 1% Sdv (Lidocaine 1% Sdv) (01/18/21 06:00) Telemetry 48 Hr Order (01/17/21 14:02) Continuous Pulse Oximeter (01/17/21 14:02) Plan Text 1. End-stage renal disease. HD done Monday. Next HD will be on Monday. 2. Anemia and end-stage renal disease. Because of history of COVID 19 infection and risk of clots, the patient will not be given erythropoietin stimulating agent until his hemoglobin drops below 9. 3. Severe COVID 19 pneumonia: He is on Vapotherm now. Feeling better today. He is currently getting steroids and remdesivir with Olumiant which was started yesterday. 4. Hypotension. BP is better.All antihypertensives are on hold. 5. Chronic kidney disease, mineral bone disease. The patient is not eating much. I have stopped his phosphorous binders at this time. 6. Protein calorie malnutrition:Started Nepro with lunch. JANEEN TAVERAS MD Jan 17, 2021 20:07
[2021-01-17] MEDS: REMDESIVIR 100 MG in NS 250 ML IV SCH (20:49)
[2021-01-17] MEDS: PANTOPRAZOLE 40MG TAB (PROTONIX) PO SCH (20:50)
[2021-01-17] MEDS: dexameTHASONE 4 MG/ML 1ML VIAL (J1100 PER 1MG) IV SCH (20:50)
[2021-01-17] MEDS: SODIUM CHLORIDE 0.9% INJ 10 ML SYR IV SCH (20:52)
[2021-01-17] MEDS: BENZONATATE 100MG CAPSULE PO PRN (22:44)
[2021-01-18] VITALS (26 sets, daily range): BP systolic 106–148; BP diastolic 56–93; O2SAT 84–95
[2021-01-18] MEDS: COMBIVENT RESPIMAT 100-20MCG INHALER 4GM INH SCH ×7 (00:05→23:44)
[2021-01-18] MEDS: HEPARIN SOD (PORCINE) 5000UNITS/ML 1ML VIAL/SYRINGE SQ SCH ×3 (05:15→21:57)
[2021-01-18] MEDS: ACETAMINOPHEN TAB 650MG DOSE (2X325MG) PO PRN ×4 (05:16→21:03)
[2021-01-18 05:27] LABS: ALBUMIN 2.2 GM/DL (3.2-5.2); CALCIUM LEVEL 8.8 MG/DL (8.5-10.1); CREATININE FOR GFR 12.9 MG/DL (0.70-1.30); GLOMERULAR FILTRATION RATE 4.4 (>56); PHOSPHORUS LEVEL 8.7 MG/DL (2.5-4.9); POTASSIUM SERUM 4.8 MEQ/L (3.5-5.1)
[2021-01-18 05:55] LABS: ABG HCO3 19.5 MEQ/L (22.0-26.0); ABG O2 SATURATION 95.3 % (95.0-99.0); ABG PARTIAL PRESSURE CO2 30.5 mmHg (35.0-45.0); ABG PARTIAL PRESSURE O2 81.9 mmHg (75.0-100.0); ABG STANDARD HCO3 21.1 MEQ/L (22.0-26.0); ABG TOTAL CO2 20.4 MEQ/L (22.0-29.0); ABG pH (ARTERIAL) 7.423 UNITS (7.350-7.450)
[2021-01-18] MEDS ORDERED: LIDOCAINE 1% SDV 5ML VIAL SC PRN (06:00)
[2021-01-18] MEDS: cefTRIAXone SOD 1 GM in D5W MINI-BAG PLUS 50 ML IV SCH (06:01)
[2021-01-18] MEDS: DOXYCYCLINE HYCLATE 100 MG in D5W MINI-BAG PLUS 100 ML IV SCH ×2 (08:13→20:15)
[2021-01-18] MEDS: BARICITINIB 2MG TABLET (OLUMIANT) FOR EUA PO SCH (08:14)
[2021-01-18] MEDS: (RENVELA) SEVELAMER **CARBONate** 800 MG TAB PO SCH ×2 (12:25→17:04)
--- NOTE | 2021-01-18 19:13 | IPNPDOC ---
Text Note Date of Service The patient was seen on 01/18/21. NOTE Hospitalist Progress Note Subjective: Apparently he has had some issues with compliance with proning during the night, which caused some desaturations, however with encouragement and proper repositioning he was able to maintain his saturation on Vapotherm for this morning. But, this afternoon, especially when dialysis was started he began to decompensate, and he was unable to maintain saturations on Vapotherm alone. He was switched over to BiPAP but once again, and transferred back to ICU status. The critical care provider was notified as well. Objective: General: Wearing BiPAP mask, therefore it is difficult assessment. HEENT: Head normocephalic, atraumatic, sclera are nonicteric. Hearing is grossly intact to conversation. Respiratory: Exam is limited by the use of disposable stethoscope, but it sounds as though his lungs are clear to auscultation throughout. Cardiovascular: Normal rate and rhythm, with no rubs, gallops, or murmur. Abdomen: Soft, nontender, nondistended, no hepatosplenomegaly appreciated. Extremities: 2+ pulses in the radial and dorsalis pedis bilaterally. No evidence of clubbing or cyanosis. No edema noted. Multiple tattoos. Assessment/Plan: COVID-19 pneumonia -Transfer back to ICU status -Resume therapy with BiPAP -Continue to titrate oxygen supplementation to maintain saturations above 90% -Continue remdesivir -Continue baricitinib, father seems to be some issue with the administration of this given that he is a hemodialysis patient -Continue dexamethasone End-stage renal disease requiring hemodialysis -Nephrology has been consulted for the management of his dialysis. Their input is greatly appreciated. Acute hypotension in the setting of chronic hypertension Bradycardia -Continue to hold his home dose of beta-steven and antihypertensives at this time. GERD -Continue home dose of pantoprazole DVT prophylaxis -Heparin VS,Fishbone, I+O VS, Fishbone, I+O Laboratory Tests 01/18/21 04:51 Vital Signs Date Time Temp Pulse Resp B/P (MAP) Pulse Ox O2 Delivery O2 Flow Rate FiO2 01/18/21 18:00 72 138/89 (105) 98 NIPPV (BIPAP/CPAP) 80 01/18/21 16:45 27 01/18/21 16:15 40.0 01/18/21 16:00 98.2 I&O- Last 24 Hours up to 6 AM 01/18/21 06:00 Intake Total 861.5 ml Output Total 1000 ml Balance -138.5 ml DIPESH ANAYA DO Jan 18, 2021 19:13
--- NOTE | 2021-01-18 20:35 | IPN ---
PROGRESS NOTE DATE: 01/18/2021 SUBJECTIVE: Patient remains in the Intensive Care Unit. Chart reviewed and 24-hour events noted. Patient was on Vapotherm this morning and was switched over to BiPAP in the afternoon, FIO2 requirements 80%. He is being dialyzed this afternoon for four hours given that his blood urea nitrogen is up to 124 on the latest labs. No recent lung imaging is noted. Patient has been tolerating some oral intake and does make urine. Fluid removal with dialysis has been minimal and his daily weights have been down trending over this admission. OBJECTIVE: VITAL SIGNS: Temperature 98.2, pulse 67, respiratory rate 24, blood pressure 133/79, saturating 92% on Vapotherm this morning and 97% on BiPAP in the afternoon. INTAKE/OUTPUT: Intake yesterday was 1.1 liters. Urine output was 1075. He has an equivalent fluid balance. Goal dialysis fluid removal today is 500 cc. PHYSICAL EXAMINATION: Physical examination was limited. Patient is on COVID isolation and I did not enter the room. He was seen lying in bed on Vapotherm, awake, alert. Physical exam from other providers indicates that there is no edema. The patient does have a fistula in the left arm, which is patent. He is seen moving all four extremities. LABORATORY STUDIES: Sodium 139, potassium 4.8, bicarbonate 25, BUN 124, creatinine 12.9, glucose 129. Phosphorus 8.7. Albumin 2.2. Hemoglobin 10.3, platelets 193,000. INPATIENT MEDICATIONS: I restarted Renvela 800 mg p.o. with meal. I note he is also on I.V. Ceftriaxone and I.V. Doxycycline and I.V. Remdesivir. I note he has received three doses of Baricitinib. He is on Combivent, Tessalon Perles, Decadron 6 mg I.V. daily, Heparin subcutaneously, Protonix. PROBLEMS: 1. End-stage renal disease on hemodialysis: On a Monday, Monday, Monday schedule. Patient is dialyzed today. I note that his blood urea nitrogen has increased and is 124 on the latest labs, and I increased his dialysis treatment time to 4 hours for more adequate clearance. His oral intake remains suboptimal and given that patient does still produce urine and has down trending daily weights, we are only removing minimal fluid with dialysis at this time. He will be reassessed for dialysis needs on a daily basis. I have ordered a chest x-ray for tomorrow to ensure that there are no signs of pleural effusions or edema given that he is not having much fluid removed with dialysis. 2. Severe COVID-19 pneumonia: Managed by primary and pulmonary team. He continues to require significant oxygen support and is on BiPAP this afternoon. He has received three doses of Baricitinib and pharmacy did reach out to me to discuss the use of this medication in dialysis patients and as far as my literature review, I see that it is not typically used in dialysis patients, although I cannot find the reason for its lack of use in dialysis. Management of COVID-19 pneumonia is as per primary and pulmonary critical care. He is on Ceftriaxone, Doxycycline, Remdesivir and Baricitinib along with I.V. Dexamethasone. Steroids are possible contributing to the significant increase in blood urea nitrogen beyond his usual baseline and patient is having a longer dialysis treatment this afternoon in view of the same. 3. Secondary hyperparathyroidism and hyperphosphatemia: I have restarted the Sevelamer with meal. His phosphorus level has been in the 8's. 4. Anemia of chronic renal failure: Hemoglobin is 10.3 on the latest labs. No Aranesp being given at this time. 5. History of hypertension: The patient is acutely ill, at home he takes Amlodipine, Carvedilol and Losartan. Presently his systolic is in the 130's to 140's and he is not receiving any antihypertensive agent. Blood pressure has been stable throughout his hemodialysis treatments.
[2021-01-18] MEDS: PANTOPRAZOLE 40MG TAB (PROTONIX) PO SCH (21:54)
[2021-01-18] MEDS: dexameTHASONE 4 MG/ML 1ML VIAL (J1100 PER 1MG) IV SCH (21:54)
[2021-01-18] MEDS ORDERED: diphenhydrAMINE 50MG/ML VIAL (J1200) IV ONE (23:05)
[2021-01-19] VITALS (22 sets, daily range): BP systolic 116–147; BP diastolic 64–86; O2SAT 81–99
[2021-01-19] MEDS: COMBIVENT RESPIMAT 100-20MCG INHALER 4GM INH SCH ×5 (04:24→20:05)
[2021-01-19 04:56] LABS: HEMATOCRIT 30.9 % (42.0-52.0); HEMOGLOBIN 10.4 g/dl (13.5-17.5); MEAN CORPUSCULAR HEMOGLOBIN 32.6 pg (27.0-33.0); MEAN CORPUSCULAR HGB CONC 33.7 g/dl (32.0-36.5); MEAN CORPUSCULAR VOLUME 96.9 fl (80.0-96.0); PLATELET COUNT, AUTOMATED 197 10^3/uL (150-450); RED BLOOD COUNT 3.19 10^6/uL (4.30-6.10); WHITE BLOOD COUNT 4.5 10^3/uL (4.0-10.0)
[2021-01-19 05:05] LABS: INR 1.32; PROTHROMBIN TIME 16.8 SECONDS (12.7-14.5)
[2021-01-19 05:06] LABS: PARTIAL THROMBOPLASTIN TIME 31.8 SECONDS (25.9-37.0)
[2021-01-19 05:42] LABS: ALBUMIN 1.9 GM/DL (3.2-5.2); BILIRUBIN,DIRECT 0.3 MG/DL (0.0-0.2); BILIRUBIN,TOTAL 0.7 MG/DL (0.2-1.0); CALCIUM LEVEL 8.7 MG/DL (8.5-10.1); CREATININE FOR GFR 7.32 MG/DL (0.70-1.30); GLOMERULAR FILTRATION RATE 8.4 (>56); PHOSPHORUS LEVEL 6.4 MG/DL (2.5-4.9); POTASSIUM SERUM 4.4 MEQ/L (3.5-5.1); TROPONIN I 0.03 NG/ML (< 0.10)
[2021-01-19] MEDS: HEPARIN SOD (PORCINE) 5000UNITS/ML 1ML VIAL/SYRINGE SQ SCH ×3 (06:02→21:23)
[2021-01-19] MEDS: cefTRIAXone SOD 1 GM in D5W MINI-BAG PLUS 50 ML IV SCH (06:02)
[2021-01-19] MEDS: DOXYCYCLINE HYCLATE 100 MG in D5W MINI-BAG PLUS 100 ML IV SCH ×2 (07:17→19:58)
[2021-01-19] MEDS: (RENVELA) SEVELAMER **CARBONate** 800 MG TAB PO SCH ×3 (07:24→18:00)
--- NOTE | 2021-01-19 07:47 | REP ---
INDICATION: covid, esrd. COMPARISON: Comparison chest x-ray January 13, 2021. TECHNIQUE: Portable upright AP chest radiograph. FINDINGS: There are extensive infiltrates in the left lower lobe, right upper lobe, right lower lobe, and of lesser interstitial infiltrate is present in the left perihilar region. There is increased right upper lobe consolidation compared to the 01/13/2021 study. The other infiltrates are essentially unchanged. Mildly enlarged heart is again seen. No acute bony abnormality. IMPRESSION: Extensive bilateral infiltrates. Increased consolidation right upper lobe compared to the prior study. <Electronically signed by Victorino Hunter > 01/19/21 0746
--- NOTE | 2021-01-19 10:41 | IPNPDOC ---
Text Note Date of Service The patient was seen on 01/19/21. NOTE SUBJECTIVE: This is a 55-year-old male with a past medical history of ESRD w/ AV fistula on Left arm on dialysis Monday, Monday, Monday and HTN presenting to the ER with fever, chills, malaise, arthralgias, myalgias, diarrhea, and shortness of breath. He tested positive for COVID on 01/06 and was feeling well up until 01/09. Patient was seen at bedside today with no acute complaints. He states that he has been using his BIPAP at night and is on Vapotherm in the morning. He states that he has been trying to prone; apparently he has some compliance issues with proning. Denies subjective fevers, chills, night sweats, headache, chest pain, palpitations, n/v/d, constipation, abdominal pain, leg swelling REVIEW OF SYSTEMS: CONSTITUTIONAL: denies fever, chills, night sweats HEENT: denies headaches, trouble swallowing CARDIOVASCULAR: denies palpations, denies chest pain RESPIRATORY: denies increased shortness of breath GENITOURINARY: denies dysuria MUSCULOSKELETAL: denies any muscle weakness GASTROINTESTINAL: denies n/v/d, constipation, abdominal pain NEUROLOGICAL: denies numbness or tingling PHYSICAL EXAMINATION: VITAL SIGNS: Please see below. GENERAL APPEARANCE: lying down in bed; in no acute distress HEENT: head normocephalic atraumatic; EOMI, PERRLA, moist mucus membranes RESPIRATORY: lungs clear to auscultation b/l; coarse breath sounds; exam limited due to disposable stethoscope CARDIOVASCULAR: regular rate rhythm; S1 S2; no murmurs ABDOMEN: soft, nondistended, no tenderness to palpation EXTREMITIES: no pitting edema, b/l pedal pulses NEUROLOGICAL: CN II-XII grossly intact; no focal neurological deficits LABORATORY DATA: Please see below. ASSESSMENT/PLAN: This is a 55-year-old male with a past medical history of ESRD w/ AV fistula on Left arm on dialysis Monday, Monday, Monday and HTN admitted for acute hypoxemic respiratory failure 2/2 COVID-19 Pneumonia. # Acute hypoxemic respiratory failure 2/2 COVID-19 Pneumonia - continue with Vapotherm; can continue to titrate; patient did require BIPAP last night FIO2 requirements 80% - keep O2 sat >90% - continue remdesivir and dexamethasone and baricitinib - continue to encourage proning # ESRD on HD has a Left AV fistula -Nephrology has been consulted for the management of his dialysis; we appreciate their input on the care of this patient; nephrology will coordinate HD for this pt as he is a negative pressure room # Hypertension - d/c antihypertensives # GERD - continue pantoprazole # DVT prophylaxis -Heparin 5000 U q8h VS,Fishbone, I+O VS, Fishbone, I+O Laboratory Tests 01/19/21 04:42 Vital Signs Date Time Temp Pulse Resp B/P (MAP) Pulse Ox O2 Delivery O2 Flow Rate FiO2 01/19/21 08:24 80 01/19/21 08:00 97 BIPAP/CPAP 01/19/21 07:13 40.0 01/19/21 07:13 99.1 79 21 135/85 (102) I&O- Last 24 Hours up to 6 AM 01/19/21 06:00 Intake Total 930 ml Output Total 1450 ml Balance -520 ml GME ATTESTATION GME ATTESTATION My faculty preceptor for this patient encounter was physically present during the encounter and was fully available. All aspects of the patient interview, examination, medical decision making process, and medical care plan development were reviewed and approved by the faculty preceptor. The faculty preceptor is aware and concurs with the plan as stated in the body of this note and will attest to such by his/her cosignature. ATTENDING NOTE I was physically present for the interview and exam. Clearly does better when he is prone. SaO2 99% on Vapotherm when prone. Agree with current plan as outlined. Mayela Arcos DO Jan 19, 2021 10:41 Michael Vasquez Jan 19, 2021 10:48
[2021-01-19] MEDS: BARICITINIB 2MG TABLET (OLUMIANT) FOR EUA PO SCH (15:41)
[2021-01-19] MEDS: ACETAMINOPHEN TAB 650MG DOSE (2X325MG) PO PRN (15:48)
[2021-01-19] MEDS: dexameTHASONE 4 MG/ML 1ML VIAL (J1100 PER 1MG) IV SCH (21:22)
[2021-01-19] MEDS: PANTOPRAZOLE 40MG TAB (PROTONIX) PO SCH (21:23)
[2021-01-20] VITALS (49 sets, daily range): BP systolic 80–142; BP diastolic 52–87; O2SAT 62–97
[2021-01-20] MEDS: COMBIVENT RESPIMAT 100-20MCG INHALER 4GM INH SCH ×6 (00:53→20:19)
[2021-01-20 05:18] LABS: HEMATOCRIT 30.2 % (42.0-52.0); HEMOGLOBIN 10.1 g/dl (13.5-17.5); MEAN CORPUSCULAR HEMOGLOBIN 32.8 pg (27.0-33.0); MEAN CORPUSCULAR HGB CONC 33.4 g/dl (32.0-36.5); MEAN CORPUSCULAR VOLUME 98.1 fl (80.0-96.0); PLATELET COUNT, AUTOMATED 216 10^3/uL (150-450); RED BLOOD COUNT 3.08 10^6/uL (4.30-6.10); WHITE BLOOD COUNT 4.2 10^3/uL (4.0-10.0)
[2021-01-20] MEDS: HEPARIN SOD (PORCINE) 5000UNITS/ML 1ML VIAL/SYRINGE SQ SCH ×3 (05:42→21:54)
[2021-01-20] MEDS: cefTRIAXone SOD 1 GM in D5W MINI-BAG PLUS 50 ML IV SCH (05:43)
[2021-01-20 06:08] LABS: ALBUMIN 1.8 GM/DL (3.2-5.2); CREATININE FOR GFR 9.63 MG/DL (0.70-1.30); GLOMERULAR FILTRATION RATE 6.1 (>56); PHOSPHORUS LEVEL 7.7 MG/DL (2.5-4.9); POTASSIUM SERUM 4.8 MEQ/L (3.5-5.1)
--- NOTE | 2021-01-20 09:19 | IPNPDOC ---
Text Note Date of Service The patient was seen on 01/20/21. NOTE SUBJECTIVE: This is a 55-year-old male with a past medical history of ESRD w/ AV fistula on Left arm on dialysis Monday, Monday, Monday and HTN presenting to the ER with fever, chills, malaise, arthralgias, myalgias, diarrhea, and shortness of breath. He tested positive for COVID on 01/06 and was feeling well up until 01/09. Patient was seen at bedside today with no acute complaints. He was seen using his BIPAP this morning as well as receiving his dialysis in his room. He states that he has been trying to prone to help with the breathing. Denies subjective fevers, chills, night sweats, headache, chest pain, palpitations, n/v/d, constipation, abdominal pain, leg swelling. REVIEW OF SYSTEMS: CONSTITUTIONAL: denies fever, chills, night sweats HEENT: denies headaches, trouble swallowing CARDIOVASCULAR: denies palpations, denies chest pain RESPIRATORY: denies increased shortness of breath GENITOURINARY: denies dysuria MUSCULOSKELETAL: denies any muscle weakness GASTROINTESTINAL: denies n/v/d, constipation, abdominal pain NEUROLOGICAL: denies numbness or tingling PHYSICAL EXAMINATION: VITAL SIGNS: Please see below. GENERAL APPEARANCE: lying down in bed; in no acute distress HEENT: head normocephalic atraumatic; EOMI, PERRLA, moist mucus membranes RESPIRATORY: lungs clear to auscultation b/l; rhonchi heard right sided; exam limited due to disposable stethoscope CARDIOVASCULAR: regular rate rhythm; S1 S2; no murmurs ABDOMEN: soft, nondistended, no tenderness to palpation EXTREMITIES: no pitting edema, b/l pedal pulses NEUROLOGICAL: CN II-XII grossly intact; no focal neurological deficits LABORATORY DATA: Please see below. ASSESSMENT/PLAN: This is a 55-year-old male with a past medical history of ESRD w/ AV fistula on Left arm on dialysis Monday, Monday, Monday and HTN admitted for acute hypoxemic respiratory failure 2/2 COVID-19 Pneumonia. #Acute hypoxemic respiratory failure 2/2 COVID-19 Pneumonia - currently on BIPAP - continue with dexamethasone and baricitinib - has finished course of remdesivir - continue to encourage proning as well as BIPAP use - keep O2 saturation >90% # Superimposed pneumonia - increased procalc levels to 10; monitor procalc - continue with ceftriaxone and doxycycline on 01/18 # ESRD on HD has a Left AV fistula - Nephrology has been consulted for the management of his dialysis; we appreciate their input on the care of this patient; nephrology will coordinate HD for this pt as he is a negative pressure room # Secondary hyperparathyroidism 2/2 ESRD - continue sevelamer # Hypertension - d/c antihypertensives as blood pressures have been <140/90 while inpatient - continue to monitor blood pressures #GERD - continue with pantoprazole # DVT prophylaxis - Heparin 5000 U q8h VS,Fishbone, I+O VS, Fishbone, I+O Laboratory Tests 01/20/21 04:56 Vital Signs Date Time Temp Pulse Resp B/P (MAP) Pulse Ox O2 Delivery O2 Flow Rate FiO2 01/20/21 08:00 40.0 100 01/20/21 06:00 95 Nasal Cannula 01/20/21 06:00 65 20 111/58 (75) 01/20/21 04:00 99.3 I&O- Last 24 Hours up to 6 AM 01/20/21 06:00 Intake Total 730 ml Output Total 590 ml Balance 140 ml GME ATTESTATION GME ATTESTATION My faculty preceptor for this patient encounter was physically present during the encounter and was fully available. All aspects of the patient interview, examination, medical decision making process, and medical care plan development were reviewed and approved by the faculty preceptor. The faculty preceptor is aware and concurs with the plan as stated in the body of this note and will attest to such by his/her cosignature. ATTENDING NOTE I was physically present for the interview and exam. Has increased Vt on BiPAP, mildly anxious. IPAP adjustments made. Will add low dose anxiolytic. Agree with remainder of plan. O2 sats much improved when proning on Vapotherm. Mayela Arcos DO Jan 20, 2021 09:19 Michael Vasquez Jan 20, 2021 09:42
[2021-01-20] MEDS ORDERED: HALOPERIDOL 5MG/ML VIAL (J1630 PER 1) IM ONE (09:30)
[2021-01-20] MEDS: (RENVELA) SEVELAMER **CARBONate** 800 MG TAB PO SCH ×3 (09:35→18:00)
[2021-01-20] MEDS ORDERED: LORazepam 2 MG/ML VIAL IV STA ×2 (09:35→09:36)
[2021-01-20] MEDS: ACETAMINOPHEN TAB 650MG DOSE (2X325MG) PO PRN (09:43)
[2021-01-20] MEDS: DOXYCYCLINE HYCLATE 100 MG in D5W MINI-BAG PLUS 100 ML IV SCH ×2 (10:31→19:56)
[2021-01-20 11:57] LABS: CK-MB VALUE MASS 1.4 NG/ML (<3.6); CPK CREATINE PHOSPHOKINASE 203 U/L (39-308); MB/CK RELATIVE INDEX 0.69 (< OR =4); TROPONIN I < 0.02 NG/ML (< 0.10)
--- NOTE | 2021-01-20 12:03 | IPNPDOC ---
Subjective Date Seen The patient was seen on 01/19/21. Subjective Chief Complaint/HPI Patient was seen and examined at bedside this morning. He was on BiPAP and in prone position. He reported feeling better with the BiPAP, but felt uncomfortable. He preferred to be on Vapotherm instead. He was explained the need for noninvasive positive pressure ventilation to prevent him from getting intubated. He denies chest pain, abdominal pain, nausea, vomiting, problem with urination and bowel movements. Objective Physical Examination Other physical findings General: Lying in bed, no acute distress Head/Neck/Throat: Trachea midline, mucous membranes moist Eyes: Sclera anicteric, no erythema or discharge appreciated by laterally Thorax: On BiPAP, lungs clear to auscultation bilaterally, no wheezes or rales appreciated Cardiovascular: Normal rate, regular rhythm, normal S1, S2; no S3, S4, rubs/gallops/murmurs Abdomen: Bowel sounds present, soft/nontender/nondistended Genitourinary: No CVA tenderness, no Vega in place Musculoskeletal: Moving all extremities, no edema Skin: Warm, dry Neurologic: AAOx3, speech fluent and goal-directed, no focal deficits, grossly intact Assessment /Plan Assessment #Covid pneumonia -Patient encouraged to continue proning and compliance with BiPAP. Goal oxygen saturation above 90% -Continue with dexamethasone. Started on baricitinib by pulm team; appreciate recommendations. #Superimposed pneumonia -Increasing procalcitonin levels therefore he was started on ceftriaxone and doxycycline on 01/18. #End-stage renal disease -Dialysis as scheduled by nephrology team #Secondary hyperparathyroidism -In the setting of renal disease. Restarted on sevelamer. #Hypertension -Blood pressure is acceptable with holding ambulatory amlodipine, carvedilol, and losartan. #GERD -Continue with pantoprazole #DVT prophylaxis -Heparin subcu Plan/VTE VTE Prophylaxis Ordered?: Yes VS, I&O, 24H, Fishbone Vital Signs/I&O Vital Signs Date Time Temp Pulse Resp B/P (MAP) Pulse Ox O2 Delivery O2 Flow Rate FiO2 01/19/21 08:24 80 01/19/21 08:00 97 BIPAP/CPAP 01/19/21 07:13 40.0 01/19/21 07:13 99.1 79 21 135/85 (102) I&O- Last 24 Hours up to 6 AM 01/19/21 06:00 Intake Total 930 ml Output Total 1450 ml Balance -520 ml Laboratory Data 24H LABS Laboratory Tests 2 01/19/21 04:42: Nucleated Red Blood Cells % (auto) 0.0, Prothrombin Time 16.8H, Prothromb Time International Ratio 1.32, Activated Partial Thromboplast Time 31.8, Fibrinogen 569H, Anion Gap 7L, Glomerular Filtration Rate 8.4L, Calcium Level 8.7, Phosphorus Level 6.4#H, Ferritin 21375P, Total Bilirubin 0.7, Direct Bilirubin 0.3H, Aspartate Amino Transf (AST/SGOT) 44H, Alanine Aminotransferase (ALT/SGPT) 22, Alkaline Phosphatase 49, Lactate Dehydrogenase 807H, Total Creatine Kinase 309H, Troponin I 0.03#, OK-Esx-E-Type Natriuretic Peptide 6447H, Total Protein 6.0L, Albumin 1.9L, Albumin/Globulin Ratio 0.5, Procalcitonin 10.00 CBC/BMP Laboratory Tests 01/19/21 04:42 Microbiology Microbiology 01/13/21 Blood Culture - Final, Complete NO GROWTH AFTER 5 DAYS 01/13/21 Blood Culture - Final, Complete NO GROWTH AFTER 5 DAYS ZARA KITCHEN M.D. Jan 19, 2021 10:33
[2021-01-20 14:17] LABS: BLOOD UREA NITROGEN 52 MG/DL (7-18); CALCIUM LEVEL 8.9 MG/DL (8.5-10.1); CARBON DIOXIDE LEVEL 28 MEQ/L (21-32); CHLORIDE LEVEL 102 MEQ/L (98-107); CREATININE FOR GFR 6.85 MG/DL (0.70-1.30); GLUCOSE, FASTING 100 MG/DL (70-100); MAGNESIUM LEVEL 2.2 MG/DL (1.8-2.4); POTASSIUM SERUM 4.4 MEQ/L (3.5-5.1); SODIUM LEVEL 139 MEQ/L (136-145)
[2021-01-20 14:18] LABS: PHOSPHORUS LEVEL 3.2 MG/DL (2.5-4.9)
--- NOTE | 2021-01-20 14:57 | IPNPDOC ---
Subjective Date Seen The patient was seen on 01/20/21. Subjective Chief Complaint/HPI Pt was seen and examined at bedside this morning. He was on bipap and reported having chest pain mainly present and reproducible with cough. He denied nausea, vomiting, and diaphoresis. He also denies palpitations, abdominal pain, nausea, vomiting, problems with urination or bowel movements. Objective Physical Examination Other physical findings General: Lying in bed, no acute distress Head/Neck/Throat: Trachea midline, mucous membranes moist Eyes: Sclera anicteric, no erythema or discharge appreciated by laterally Thorax: On BiPAP, lungs clear to auscultation bilaterally, no wheezes or rales appreciated Cardiovascular: Normal rate, regular rhythm, normal S1, S2; no S3, S4, rubs/gallops/murmurs Abdomen: Bowel sounds present, soft/nontender/nondistended Genitourinary: No CVA tenderness, no Vega in place Musculoskeletal: Moving all extremities, no edema Skin: Warm, dry Neurologic: AAOx3, speech fluent and goal-directed, no focal deficits, grossly intact Assessment /Plan Assessment #Covid pneumonia -Patient encouraged to continue proning and compliance with BiPAP. Goal oxygen saturation above 90% -Continue with dexamethasone. Started on baricitinib by pulm team; appreciate recommendations. #Superimposed pneumonia -Increasing procalcitonin levels therefore he was started on ceftriaxone and doxycycline on 01/18. #End-stage renal disease -Patient was undergoing dialysis today but became tachycardic, tachypneic, and tremulous. He was unable to tolerate entire dialysis session. Once terminated and patient asked to go into prone position his symptoms had resolved. This possibly a component of disequilibrium. Electrolytes are within normal limits and repeat labs, troponin trend thus far is negative. #Secondary hyperparathyroidism -In the setting of renal disease. Restarted on sevelamer. #Hypertension -Blood pressure is acceptable with holding ambulatory amlodipine, carvedilol, and losartan. #GERD -Continue with pantoprazole #DVT prophylaxis -Heparin subcu Plan/VTE VTE Prophylaxis Ordered?: Yes VS, I&O, 24H, Fishbone Vital Signs/I&O Vital Signs Date Time Temp Pulse Resp B/P (MAP) Pulse Ox O2 Delivery O2 Flow Rate FiO2 01/20/21 11:45 90 89/52 (64) 92 01/20/21 11:00 BIPAP/CPAP 100 01/20/21 08:00 99.4 20 40.0 I&O- Last 24 Hours up to 6 AM 01/20/21 06:00 Intake Total 730 ml Output Total 590 ml Balance 140 ml Laboratory Data 24H LABS Laboratory Tests 2 01/20/21 04:56: Nucleated Red Blood Cells % (auto) 0.0, Anion Gap 12, Glomerular Filtration Rate 6.1L, Calcium Level 9.0, Phosphorus Level 7.7#H, Albumin 1.8L 01/20/21 11:09: Total Creatine Kinase 203, Creatine Kinase MB 1.4, Creatine Kinase MB Relative Index 0.69, Troponin I < 0.02# CBC/BMP Laboratory Tests 01/20/21 04:56 Microbiology Microbiology 01/13/21 Blood Culture - Final, Complete NO GROWTH AFTER 5 DAYS 01/13/21 Blood Culture - Final, Complete NO GROWTH AFTER 5 DAYS ZARA KITCHEN M.D. Jan 20, 2021 13:13
[2021-01-20] MEDS: BARICITINIB 2MG TABLET (OLUMIANT) FOR EUA PO SCH (15:33)
[2021-01-20] MEDS: MORPHINE 2 MG/ML 1ML VIAL (J2270) IV PRN ×2 (15:44→21:55)
[2021-01-20 17:44] LABS: CK-MB VALUE MASS 1.2 NG/ML (<3.6); CPK CREATINE PHOSPHOKINASE 192 U/L (39-308); MB/CK RELATIVE INDEX 0.62 (< OR =4); TROPONIN I < 0.02 NG/ML (< 0.10)
[2021-01-20] MEDS: dexameTHASONE 20MG/5ML VIAL (J1100 PER 1MG) IV SCH (18:17)
[2021-01-20 18:32] LABS: ABG BASE EXCESS 0.3 (-2.0-2.0); ABG HCO3 23.5 MEQ/L (22.0-26.0); ABG O2 SATURATION 88.2 % (95.0-99.0); ABG PARTIAL PRESSURE CO2 32.9 mmHg (35.0-45.0); ABG PARTIAL PRESSURE O2 54.2 mmHg (75.0-100.0); ABG STANDARD HCO3 24.6 MEQ/L (22.0-26.0); ABG TOTAL CO2 24.5 MEQ/L (22.0-29.0); ABG pH (ARTERIAL) 7.472 UNITS (7.350-7.450)
[2021-01-20] MEDS: LORazepam 2 MG/ML VIAL IV PRN (19:19)
[2021-01-20 20:20] LABS: CK-MB VALUE MASS < 1.0 NG/ML (<3.6); CPK CREATINE PHOSPHOKINASE 205 U/L (39-308); MB/CK RELATIVE INDEX 0.49 (< OR =4); TROPONIN I 0.03 NG/ML (< 0.10)
[2021-01-20] MEDS: PANTOPRAZOLE 40MG TAB (PROTONIX) PO SCH (20:52)
[2021-01-21] VITALS (79 sets, daily range): BP systolic 61–209; BP diastolic 40–89; O2SAT 75–94
[2021-01-21] MEDS ORDERED: PROPOFOL 1,000 MG/100 ML VIAL As Ordered ONE (00:20)
[2021-01-21] MEDS ORDERED: ROCURONIUM BROMIDE 50 MG/5 ML VIAL IV ONE (00:22)
[2021-01-21] MEDS ORDERED: ETOMIDATE INJ 20MG/10ML VIAL IV ONE (00:22)
[2021-01-21] MEDS ORDERED: MIDAZOLAM INJ 2MG/2ML VIAL (J2250 PER 1MG) IV ONE (00:22)
[2021-01-21] MEDS ORDERED: NOREPINEPHRINE 4 MG/4 ML AMP As Ordered ONE (00:29)
[2021-01-21] MEDS ORDERED: ETOMIDATE INJ 20MG/10ML VIAL As Ordered ONE (00:30)
[2021-01-21] MEDS ORDERED: MIDAZOLAM INJ 2MG/2ML VIAL (J2250 PER 1MG) As Ordered ONE ×2 (00:43→01:13)
[2021-01-21] MEDS ORDERED: MORPHINE 2 MG/ML 1ML VIAL (J2270) IV PRN ×2 (01:15→12:20)
[2021-01-21] MEDS ORDERED: ROCURONIUM BROMIDE 50 MG/5 ML VIAL ONE (01:19)
--- NOTE | 2021-01-21 01:19 | REPVR ---
PROCEDURE INFORMATION: Exam: XR Chest Exam date and time: 01/21/2021 12:41 AM Age: 55 years old Clinical indication: Other: Intubation. Looking for pneumothorax or pneaumomediastinum; Additional info: S/P intubation TECHNIQUE: Imaging protocol: XR of the chest. Views: 1 view. COMPARISON: CR PORTABLE CHEST X-RAY 01/19/2021 6:58 AM FINDINGS: Tubes, catheters and devices: Interval ET tube placement since the prior study with the tip above the clavicular heads, approximately 8.0 cm above the kisha. NG tube extending to at least the GE junction. Lungs: Bilateral pulmonary infiltrates and consolidation which appear slightly increased overall since the prior study. Pleural spaces: Unremarkable. No pleural effusion. No pneumothorax. Heart/Mediastinum: The heart and mediastinum are unchanged although there is evidence of pneumomediastinum. Bones/joints: Unremarkable. Soft tissues: Prominent subcutaneous emphysema about the chest since the prior study. IMPRESSION: 1. Interval ET tube placement since 01/19/2021 with the tip above the clavicular heads, approximately 8.0 cm above the kisha. 2. Interval placement of an NG tube to at least the GE junction. 3. New prominent subcutaneous emphysema about the chest and neck with extension into the mediastinum. 4. Bilateral pulmonary infiltrates and consolidation which appear increased overall since the prior study. Electronically signed by: Jelani Mata On 01/21/2021 01:19:20 AM
[2021-01-21 01:23] LABS: ABG BASE EXCESS -3.9 (-2.0-2.0); ABG HCO3 21.7 MEQ/L (22.0-26.0); ABG PARTIAL PRESSURE CO2 41.4 mmHg (35.0-45.0); ABG PARTIAL PRESSURE O2 86.3 mmHg (75.0-100.0); ABG STANDARD HCO3 21.2 MEQ/L (22.0-26.0); ABG pH (ARTERIAL) 7.337 UNITS (7.350-7.450)
[2021-01-21] MEDS: ACETAMINOPHEN TAB 650MG DOSE (2X325MG) PO PRN (01:43)
[2021-01-21] MEDS: MIDAZOLAM INJ 2MG/2ML VIAL (J2250 PER 1MG) IV PRN ×8 (02:00→05:58)
[2021-01-21] MEDS ORDERED: CEFEPIME HCL 2 GM in D5W MINI-BAG PLUS 50 ML IV SCH (02:00)
[2021-01-21 02:20] LABS: HEMATOCRIT 28.4 % (42.0-52.0); HEMOGLOBIN 9.2 g/dl (13.5-17.5); MEAN CORPUSCULAR HEMOGLOBIN 32.7 pg (27.0-33.0); MEAN CORPUSCULAR HGB CONC 32.4 g/dl (32.0-36.5); MEAN CORPUSCULAR VOLUME 101.1 fl (80.0-96.0); PLATELET COUNT, AUTOMATED 161 10^3/uL (150-450); RED BLOOD COUNT 2.81 10^6/uL (4.30-6.10); WHITE BLOOD COUNT 2.8 10^3/uL (4.0-10.0)
[2021-01-21] MEDS: NOREPINEPHRINE BITARTRATE 8 MG in D5W 492 ML IV SCH ×2 (02:30→10:40)
[2021-01-21] MEDS ORDERED: VANCOMYCIN HCL 1,000 MG, VIAL MATE ADAPTER 1 EACH in NS 250 ML IV SCH ×2 (02:35→18:00)
[2021-01-21 02:52] LABS: ATYPICAL LYMPH 5 % (0-5); EOSINOPHILS 1 % (0-3); LYMPHOCYTES 14 % (16-44); MONOCYTES 5 % (0-5); NEUTROPHILS 64 % (28-66)
[2021-01-21 02:53] LABS: ANISOCYTOSIS 1+; PLATELET ESTIMATE NORMAL (NORMAL); TOXIC VACUOLATION 1+
[2021-01-21 02:59] LABS: ALBUMIN 1.4 GM/DL (3.2-5.2); BILIRUBIN,TOTAL 1.2 MG/DL (0.2-1.0); CALCIUM LEVEL 8.4 MG/DL (8.5-10.1); CREATININE FOR GFR 8.47 MG/DL (0.70-1.30); GLOMERULAR FILTRATION RATE 7.1 (>56); TOTAL PROTEIN 6.1 GM/DL (6.4-8.2); TROPONIN I 0.02 NG/ML (< 0.10)
[2021-01-21] MEDS: propofoL 1,000 MG in IV 1 EA IV SCH ×4 (03:06→10:42)
[2021-01-21] MEDS ORDERED: NS 1,000 ML IV SCH (03:40)
--- NOTE | 2021-01-21 03:53 | IPNPDOC ---
Date Seen The patient was seen on 01/20/21. Progress Note SUBJECTIVE: Called by RN to assess patient does on BiPAP saturating at approximately 87% having difficulty complying or proning. Patient is becoming more confused. Patient denies any chest pain palpitations nausea vomiting diarrhea. Has been having fevers. Patient is a 55-year-old male with a past medical history of end-stage renal disease, secondary hyperparathyroidism, hypertension. Was admitted with COVID- 19 pneumonia and diagnosed with superimposed bacterial pneumonia. Patient has been on doxycycline and ceftriaxone since 01/18/2021. Presently receiving dexamethasone and baricitinib for Covid pneumonia. OBJECTIVE PHYSICAL EXAMINATION: VITAL SIGNS: please see below General: Ill-appearing, confused. BiPAP mask on. HEENT: PERRLA, EOMI, sclerae clear Neck: supple, normal ROM, no JVD Respiratory: Reduced inspiratory effort, no wheezes. Rales heard diffusely. CVS: Tachycardic, regular, normal S1, S2, no murmurs Abdo: soft, no masses, no hepatosplenomegaly, BS+, no rebound tenderness Extremities: no edema, pulses 2+ MSK: no joint deformities, normal ROM Neuro: no focal neuro deficits, moving all 4 extremities, CN2-12 intact. Strength 5/5 in all 4 extremities. No nystagmus. Psych: calm, cooperative, AAO x 3 LABORATORY DATA, IMAGING STUDIES, MICROBIOLOGY: Please see below. CXR (01/21/21): 1. Interval ET tube placement since 01/19/2021 with the tip above the clavicular heads, approximately 8.0 cm above the kisha. 2. Interval placement of an NG tube to at least the GE junction. 3. New prominent subcutaneous emphysema about the chest and neck with extension into the mediastinum. 4. Bilateral pulmonary infiltrates and consolidation which appear increased overall since the prior study. DVT prophylaxis ordered?: Heparin 5000 units every 8 subcu PROBLEMS: Acute hypoxic respiratory failure secondary to COVID-19 as well as bacterial pneumonia -Patient no longer tolerating BiPAP becoming more somnolent and hypoxic. -Discussed with Dr. Vasquez called anesthesia team. Patient was intubated by Dr. Bernal. - subsequent ABG showing mild respiratory acidosis - subQ emphysema was noted on CXR. No clear pneumothorax. Pneumomediastinum - possibly 2/2 barotrauma from bipap use - D/w Dr. Vasquez. No pneumothorax seen - repeat serial CXRs Septic shock 2/2 covid and superimposed bacterial pna, likely HAP - hypotensive, requiring use of levophed. Central line placed by Dr. Vasquez. - s/p 1.5 L NS bolus - LA elevated to 3.9 - stop doxycycline and ceftriaxone, convert to vancomycin and cefepime; antipseudomonal coverage for HAP - trop wnl I spoke to patient's life partner Luis (tel [phone]) and provided an update. I answered all questions in detail. VS, I&O, 24H, Fishbone Vital Signs/I&O Vital Signs Date Time Temp Pulse Resp B/P (MAP) Pulse Ox O2 Delivery O2 Flow Rate FiO2 01/21/21 00:00 100.8 123 42 93/51 (65) 83 NIPPV (BIPAP/CPAP) 100 01/20/21 08:00 40.0 I&O- Last 24 Hours up to 6 AM 01/21/21 05:59 Intake Total 410 ml Output Total 725 ml Balance -315 ml Laboratory Data 24H LABS Laboratory Tests 2 01/20/21 04:56: Nucleated Red Blood Cells % (auto) 0.0, Anion Gap 12, Glomerular Filtration Rate 6.1L, Calcium Level 9.0, Phosphorus Level 7.7#H, Albumin 1.8L 01/20/21 11:09: Total Creatine Kinase 203, Creatine Kinase MB 1.4, Creatine Kinase MB Relative Index 0.69, Troponin I < 0.02# 01/20/21 13:42: Anion Gap 9, Glomerular Filtration Rate 9.0L, Calcium Level 8.9, Phosphorus Level 3.2#, Total Creatine Kinase 192, Creatine Kinase MB 1.2, Creatine Kinase MB Relative Index 0.62, Troponin I < 0.02, Magnesium Level 2.2 01/20/21 18:10: Blood Gas Bicarbonate Standard 24.6, Arterial Blood pH 7.472H, Arterial Blood Partial Pressure CO2 32.9L, Arterial Blood Partial Pressure O2 54.2L, Arterial Blood Total CO2 24.5, Arterial Blood HCO3 23.5, Arterial Blood Base Excess 0.3, Arterial Blood Oxygen Saturation 88.2L 01/20/21 19:30: Total Creatine Kinase 205, Creatine Kinase MB < 1.0, Creatine Kinase MB Relative Index 0.49, Troponin I 0.03# 01/21/21 01:15: Blood Gas Bicarbonate Standard 21.2L, Arterial Blood pH 7.337L, Arterial Blood Partial Pressure CO2 41.4, Arterial Blood Partial Pressure O2 86.3, Arterial Blood Total CO2 23.0, Arterial Blood HCO3 21.7L, Arterial Blood Base Excess - 3.9L, Arterial Blood Oxygen Saturation 95.0 01/21/21 02:06: Troponin I 0.02#, Neutrophils (%) (Auto) , Nucleated Red Blood Cells % (auto) 0.7H, Neutrophils 64, Band Neutrophils 11, Lymphocytes (Manual) 14L, Monocytes (Manual) 5, Eosinophils (Manual) 1, Atypical Lymphocytes 5, Anisocytosis 1+, Toxic Vacuolation 1+, Platelet Estimate NORMAL, Anion Gap 11, Glomerular Filtration Rate 7.1L, Lactic Acid Level 3.9*H, Calcium Level 8.4L, Magnesium Level 2.0, Total Bilirubin 1.2#H, Aspartate Amino Transf (AST/SGOT) 41H, Alanine Aminotransferase (ALT/SGPT) 22, Alkaline Phosphatase 45, Ammonia < 10, Total Protein 6.1L, Albumin 1.4#L, Albumin/Globulin Ratio 0.3 01/21/21 03:27: CBC/BMP Laboratory Tests 01/20/21 04:56 01/20/21 13:42 01/21/21 02:06 Microbiology Microbiology 01/21/21 Blood Culture, Received Pending 01/21/21 Blood Culture, Received Pending 01/13/21 Blood Culture - Final, Complete NO GROWTH AFTER 5 DAYS 01/13/21 Blood Culture - Final, Complete NO GROWTH AFTER 5 DAYS MAYELIN ARANDA MD Jan 21, 2021 03:53
[2021-01-21] MEDS: IPRATROPIUM 0.5MG/ALBUTEROL 2.5MG INH SOL UD 3ML (DUONEB) NEB SCH ×3 (04:00→08:59)
--- NOTE | 2021-01-21 04:34 | REP ---
INDICATION: change in pt condition COMPARISON: 01/21/2021 at 12:55 a.m. TECHNIQUE: Portable AP view of the chest FINDINGS: Endotracheal tube and nasogastric tube are in seemingly satisfactory position. Extensive subcutaneous emphysema and suspected pneumomediastinum is again appreciated. Diffuse bilateral infiltrates are again noted which may be minimally improved as compared to prior examination. No obvious effusion. No obvious pneumothorax. IMPRESSION: 1. ETT and NGT in stable satisfactory position. 2. Extensive subcutaneous emphysema and suspected elements of pneumomediastinum similar to prior examination. 3. Diffuse bilateral infiltrates which may be slightly improved and less consolidative as compared to most recent prior examination. <Electronically signed by Bob Boone > 01/21/21 0438
[2021-01-21] MEDS ORDERED: VANCOMYCIN HCL 750 MG, VIAL MATE ADAPTER 1 EACH in NS 250 ML IV ONE ×2 (05:00→06:00)
--- NOTE | 2021-01-21 05:50 | RO ---
OPERATIVE NOTE DATE OF OPERATION: 01/21/2021 PREOPERATIVE DIAGNOSIS: Hypotension. POSTOPERATIVE DIAGNOSIS: Hypotension. PROCEDURE: Insertion of triple-lumen central venous catheter. SURGEON: Michael Vasquez MD SITE: Right femoral vein. SOCIAL MEDIA SENIOR ASSOCIATE: ANESTHESIA: The procedure was performed emergently. DESCRIPTION OF PROCEDURE: After the right femoral area was prepped and draped in the usual sterile fashion, using a large bore needle the right femoral vein easily cannulated in one stick. In a modified Seldinger technique, a triple-lumen central venous catheter was easily advanced. Good venous return from all three ports. Each port was then flushed. Line was then sutured in place and a sterile dressing applied. No complications of procedure immediately noted.
[2021-01-21] MEDS ORDERED: VECURONIUM BROMIDE 10MG VIAL IV ONE (06:05)
[2021-01-21] MEDS: dexameTHASONE 20MG/5ML VIAL (J1100 PER 1MG) IV SCH (06:24)
[2021-01-21] MEDS: HEPARIN SOD (PORCINE) 5000UNITS/ML 1ML VIAL/SYRINGE SQ SCH (06:24)
[2021-01-21 07:12] LABS: HEMATOCRIT 27.7 % (42.0-52.0); MEAN CORPUSCULAR HGB CONC 32.5 g/dl (32.0-36.5); MEAN CORPUSCULAR VOLUME 101.5 fl (80.0-96.0); PLATELET COUNT, AUTOMATED 128 10^3/uL (150-450); RED BLOOD COUNT 2.73 10^6/uL (4.30-6.10)
--- NOTE | 2021-01-21 07:24 | CCN ---
CRITICAL CARE NOTE DATE: 01/21/2021 START TIME: 0030 STOP TIME: 0127 SUBJECTIVE: I was called emergently to the ICU to attend Cory Myersigham. Patient examined and chart reviewed, and is spoke at length with the nursing team at the bedside. In essence, he has had progressive difficulties through the night with hypoxemia. He became intolerant of BiPAP, became more confused, ripped it off and had sats in the 40s. He was intubated by the COVID intubation team. Multiple ventilator manipulations were made and eventually on a PRBC rate of 25, tidal volume of 600, PEEP if 14, FIO2 of 100% and we were able to get sats over 90. On exam, he is quite sedate having been paralyzed by Anesthesia for intubation. He has diffuse subcutaneous crepitus. His heart rate however is 160, blood pressure is 180 systolic and on the above ventilator settings his peak area pressures are only 27 cm of water. A chest x-ray was done, it shows the tube in good position. There is diffuse subcutaneous air but no obvious pneumothorax. There is a line along the aortic stripe consistent more with a pneumomediastinum. Over the course of the next 15 minutes, several more x-rays were taken and again no convincing evidence of pneumothorax was able to be demonstrated. Blood gas is currently pending. I spoke with Dr. Gasca from the Hospitalist Service who is the attending for that service. With the addition of Propofol, his blood pressure is now 120 to 140 systolic, his heart rate is down into the 140s. Peak airway pressures remain 25 to 27 cm of water. OBJECTIVE: On exam, trachea is in the midline. He does have diffuse subcutaneous crepitus but breath sounds are equal bilaterally. Cardiac exam is tachycardic. Peripheral pulses are diminished but palpable. Abdomen is soft with active bowel sounds. Extremities show no cyanosis or clubbing. Neurologically, he is sedated. Repeat laboratories as well as his blood gas are pending. Chest x-ray is as outlined above. The most pressing problems requiring my immediate presence at the bedside: 1. Progressive hypoxemic respiratory failure secondary to COVID pneumonia. 2. COVID pneumonia. 3. Suspected ARDS. 4. Pneumomediastinum with subcutaneous air. 5. Endstage renal disease, dialysis dependent. At this point, we await his blood gas and we will make appropriate ventilator manipulations at that point in time. I have asked for the chest tube carts to be placed at the bedside. If this was a significant pneumothorax on the current ventilator settings that he is on, my suspicion is that there would be very little doubt as to the presence of a significant pneumothorax as opposed to a pneumomediastinum. I spoke with Dr. Gasca in this regard. Certainly, if there is any significant change in his status, then chest tubes would be placed. At this point, he is quite critically-ill. The potential for progression and decline is quite significant and I have had that discussion with Mr. Quezada several times over the previous few days. We will proceed as above. I left the bedside at 0127 hours. Fifty-seven minutes of critical care time at the bedside not including procedures.
--- NOTE | 2021-01-21 07:29 | CCN ---
CRITICAL CARE NOTE DATE: 01/21/2021 START TIME: 214 STOP TIME: 254 SUBJECTIVE: I was called emergently again to attend [facility]. He had a precipitous drop in his oxygen saturation at 82% with a drop in his blood pressure into the 70s. The heart rate remains in the 1'teens. He has been given IV fluids and Levophed was restarted. Peripheral access was suboptimal regarding the need for lines and a right femoral CVP was place occupying less than five minutes time. A repeat chest x-ray was done over the concern for his subcutaneous air. Again, pneumomediastinum but no pneumothorax was identified. He was given a liter fluid bolus. Blood pressure improved to 90 systolic, current oxygen saturation is 91%. Temperature 103.5. I spoke with Dr. Gasca. We will broaden his antimicrobials to Vancomycin and Cefepime. Cultures have been drawn. He does make some urine although he is a dialysis patient and a catheter was placed and urine was sent for culture as well. OBJECTIVE: On exam, he has good bilateral breath sounds. Cardiac exam is tachycardic but regular. Abdomen: He does have active bowel sounds. Extremities: No cyanosis or clubbing. Neurologic: He is sedated. The most pressing problems requiring my immediate presence at the bedside: 1. Hypotension most likely on the basis of sepsis. 2. ARDS. 3. COVID pneumonia. 4. Respiratory failure, multifactorial. 5. Renal failure, dialysis dependent. At this point, we will proceed as outlined above. Again, I see no evidence of pneumothorax. His blood pressures and oxygen saturations are both improved with the addition of IV fluids and low dose Levophed. We will broaden his antimicrobials as outlined above. Anticoagulation per the primary service. At this point, he has multiorgan dysfunction and likely sepsis. His prognosis is guarded at best and there is a high likelihood he may not survive this hospitalization. I left the beside at 0255 hours. An additional 40 minutes of critical care time was delivered at the bedside, less than 5 minutes involved with procedures.
[2021-01-21] MEDS: VECURONIUM BROMIDE 10MG VIAL IV PRN ×2 (07:48→10:43)
[2021-01-21 07:51] LABS: ALBUMIN 1.4 GM/DL (3.2-5.2); BILIRUBIN,TOTAL 1.8 MG/DL (0.2-1.0); CALCIUM LEVEL 7.8 MG/DL (8.5-10.1); CREATININE FOR GFR 8.88 MG/DL (0.70-1.30); GLOMERULAR FILTRATION RATE 6.7 (>56); PHOSPHORUS LEVEL 5.5 MG/DL (2.5-4.9)
[2021-01-21] MEDS: LORazepam 2 MG/ML VIAL IV PRN (07:53)
[2021-01-21] MEDS: (RENVELA) SEVELAMER **CARBONate** 800 MG TAB PO SCH (07:53)
[2021-01-21 08:13] LABS: ANISOCYTOSIS 1+; ATYPICAL LYMPH 2 % (0-5); EOSINOPHILS 1 % (0-3); LYMPHOCYTES 19 % (16-44); METAMYELOCYTES 2 % (0-0); MONOCYTES 3 % (0-5); NEUTROPHILS 65 % (28-66); PLATELET ESTIMATE DECREASED (NORMAL)
--- NOTE | 2021-01-21 08:20 | REP ---
INDICATION: f/u on pneumomedia COMPARISON: 01/21/2021 at 2:06 a.m. TECHNIQUE: Portable AP view of the chest FINDINGS: Endotracheal tube and nasogastric tube are in stable satisfactory position. Diffuse subcutaneous emphysema is again noted but appears improved. Consolidations in the right mid to lower lung zone appear more confluent while consolidations in the left mid to lower lung zone appear relatively stable. No obvious effusion. No obvious pneumothorax. IMPRESSION: 1. Mildly improved subcutaneous emphysema. 2. Bilateral consolidations and airspace disease again noted and similar to prior examination. <Electronically signed by Bob Boone > 01/21/21 0851
[2021-01-21 08:55] LABS: ABG BASE EXCESS -5.9 (-2.0-2.0); ABG HCO3 19.6 MEQ/L (22.0-26.0); ABG O2 SATURATION 88.8 % (95.0-99.0); ABG PARTIAL PRESSURE CO2 38.5 mmHg (35.0-45.0); ABG PARTIAL PRESSURE O2 63.7 mmHg (75.0-100.0); ABG STANDARD HCO3 19.5 MEQ/L (22.0-26.0); ABG TOTAL CO2 20.8 MEQ/L (22.0-29.0); ABG pH (ARTERIAL) 7.325 UNITS (7.350-7.450)
[2021-01-21] MEDS ORDERED: CHLORHEXIDINE GLUCONATE 0.12 % 15ML UDC (PERIDEX ORAL RINSE) MT SCH (09:00)
[2021-01-21] MEDS ORDERED: VASOPRESSIN INJ 20 UNITS in NS 499 ML IV SCH ×2 (09:15→17:00)
[2021-01-21] MEDS ORDERED: VASOPRESSIN INJ 20 UNITS/ML VIAL As Ordered ONE (09:16)
--- NOTE | 2021-01-21 09:28 | CCN ---
CRITICAL CARE NOTE DATE: 01/21/2021 START TIME: 814 STOP TIME: 08 SUBJECTIVE: I was again at the bedside of [facility]. Patient has been examined and chart reviewed. I reviewed his available laboratories and spoke at length with Primary Service as well as the nurse at the bedside. His most recent chest x-ray again shows pneumomediastinum but no pneumothorax. Subcutaneous emphysema actually improved compared to his film earlier in the morning. Lines and tubes in good position. We have had marked difficulties with his oxygenation status. Multiple ventilatory manipulations have been made. Oxygen saturations remain generally in the 70s to the low 80s. Intermittently, he has to be taken off the ventilator and manually ventilated with an Ambu bag valve device. Peak airway pressures remain acceptable and even on PEEP of 14 now on a pressure control mode rate of 30 with pressure support set at 16 which gives us a tidal volume of about 600 to 620 peak airway pressures remain 29 to 31. He remains on 100% FIO2. Other laboratories shows white blood cell count has dropped to 1.0, 65% segs, 8 bands, hemoglobin of 9, platelet count of 128,000, sodium of 139, potassium 5.0, chloride 104, CO2 23, BUN 70, creatinine 0.8, glucose of 172,000. Bilirubin elevated at 1.8, albumin depressed at 1.4, latest lactate of 3.3, only minimally down from one earlier in the morning of 3.9. Repeat blood gas was just sent off and is pending. OBJECTIVE: He is intubated, sedated and mechanically ventilated and required paralytics. Subcutaneous emphysema is significantly improved compared to earlier in the morning. He has got bilateral air entry which is symmetric. Breath sound intensity is diminished. No wheeze or rhonchus. There are some fine dependent crackles. Cardiac exam was tachycardic but regular. Peripheral pulses are markedly diminished but palpable. He remains on Levophed. Abdomen was soft, there are diminished but active bowel sounds. Extremities show no cyanosis or clubbing. Neurologic: He is sedate. The most pressing problem requiring my immediate presence at the bedside: 1. Progressive hypoxemia. 2. Hypoxemic respiratory failure, multifactorial. 3. Sepsis. 4. COVID pneumonia. 5. Renal failure. At this point, Dr. Watts from the Primary Service is contacting the family as unfortunately I am running out of options for oxygenation. He is too unstable to even consider transfer for something like ECMO. Unfortunately, at this point all transfer institutions have zero bed availability. Dr. Watts tells me that the patient's mother is leaning towards comfort care. We will proceed with full court press until that decision is made. At this point, he remains on broad-spectrum antimicrobials in the form of Vancomycin and Cefepime. Cultures are all pending at this point. He remains on ulcer and DVT prophylaxis. He is on vasopressors and his blood pressure is acceptable. He is receiving sedation and pain medications with his paralytics. We are holding on nutrition at this point in view of the critical nature of his illness. His pneumomediastinum is actually improved. The course of his sepsis remains somewhat unclear. At this point, we will proceed as outlined above. His survival is not expected. We will continue until we hear further from the family regarding their decisions regarding intervention. I left the bedside at 0856 hours. An additional 41 minutes of critical care time at the bedside not including procedures.
[2021-01-21] MEDS ORDERED: LORazepam 2 MG/ML VIAL IV PRN (12:20)
--- NOTE | 2021-01-21 14:20 | DS.PDOC ---
Discharge Summary General Date of Admission Jan 13, 2021 at 16:54 Date of Discharge 01/21/21 Discharge Summary Patient on 01/21/21 at 1247. Diagnoses 1. Covid penumonia 2. ESRD 3. Hypoxemia 4. Hypoxic respiratory failure Mr. Quezada, is a 55-year-old male with a past medical history of end-stage renal disease and hypertension was admitted to [facility] for Covid pneumonia on 01/13/2021. Throughout hospitalization, his oxygen requirements continued to increase initially only requiring nasal cannula, Vapotherm and BiPAP. On the night of his respiratory status had deter iorated requiring him to be intubated. He also began to spike fevers, became leukopenic and hypotensive. His antibiotics were broadened and placed on vasopressor support. Despite being on high vent settings he was unable to maintain adequate oxygen saturation. He required manually bagging. His family including mother, Rose Quezada and significant other Luis SalcidoTedYin were made of his deteriorating clinical status. Both understood that patient was sick and were anticipating this outcome. They were explained that the likelihood of Mr. Smallwood being liberated from the vent with his underlying morbidities including end-stage renal disease would be difficult and his prognosis would be poor. They both expressed that he would most definitely not wanted to be resuscitated if his heart was to stop. Therefore he was made DNR. They were granted rights to come to visit Mr. Quezada, and were given updates that his vasopressor requirements (Levophed, and now on vasopressin) were inc reasing and it was becoming more more difficult for him to be oxygenated despite being on the vent. He was only saturating at 36% without manually bagging him. They expressed Mr. Quezada, would likely not have wanted all of this to be done and would not have wanted to be intubated. They wanted him to be comfortable and to withdraw care as they expressed that this is what he would also wanted, t o go peacefully. 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 Patient was pronounced on 01/21 at 12:47 PM. Family was present at the time of . Time spent on discharge 30 minutes. Vital Signs/I&Os Vital Signs Date Time Temp Pulse Resp B/P (MAP) Pulse Ox O2 Delivery O2 Flow Rate FiO2 01/21/21 10:42 98.8 119 40 123/61 85 Ventilator 100 01/20/21 08:00 40.0 I&O- Last 24 Hours up to 6 AM 01/21/21 06:00 Intake Total 410 ml Output Total 740 ml Balance -330 ml Laboratory Data Labs 24H Laboratory Tests 2 01/20/21 18:10: Blood Gas Bicarbonate Standard 24.6, Arterial Blood pH 7.472H, Arterial Blood Partial Pressure CO2 32.9L, Arterial Blood Partial Pressure O2 54.2L, Arterial Blood Total CO2 24.5, Arterial Blood HCO3 23.5, Arterial Blood Base Excess 0.3, Arterial Blood Oxygen Saturation 88.2L 01/20/21 19:30: Total Creatine Kinase 205, Creatine Kinase MB < 1.0, Creatine Kinase MB Relative Index 0.49, Troponin I 0.03# 01/21/21 01:15: Blood Gas Bicarbonate Standard 21.2L, Arterial Blood pH 7.337L, Arterial Blood Partial Pressure CO2 41.4, Arterial Blood Partial Pressure O2 86.3, Arterial Blood Total CO2 23.0, Arterial Blood HCO3 21.7L, Arterial Blood Base Excess - 3.9L, Arterial Blood Oxygen Saturation 95.0 01/21/21 02:06: Troponin I 0.02#, Neutrophils (%) (Auto) , Nucleated Red Blood Cells % (auto) 0.7H, Neutrophils 64, Band Neutrophils 11, Lymphocytes (Manual) 14L, Monocytes (Manual) 5, Eosinophils (Manual) 1, Atypical Lymphocytes 5, Anisocytosis 1+, Toxic Vacuolation 1+, Platelet Estimate NORMAL, Anion Gap 11, Glomerular Filtration Rate 7.1L, Lactic Acid Level 3.9*H, Calcium Level 8.4L, Magnesium Level 2.0, Total Bilirubin 1.2#H, Aspartate Amino Transf (AST/SGOT) 41H, Alanine Aminotransferase (ALT/SGPT) 22, Alkaline Phosphatase 45, Ammonia < 10, Total Protein 6.1L, Albumin 1.4#L, Albumin/Globulin Ratio 0.3 01/21/21 03:27: Urine Color YELLOW, Urine Appearance CLEAR, Urine pH 7.0, Urine Specific [place] 1.011, Urine Protein 2+H, Urine Glucose (UA) 3+H, Urine Ketones NEGATIVE, Urine Blood NEGATIVE, Urine Nitrite NEGATIVE, Urine Bilirubin NEGATIVE, Urine Urobilinogen 0.2, Urine Leukocyte Esterase NEGATIVE, Urine WBC (Auto) 2, Urine RBC (Auto) 1, Urine Hyaline Casts (Auto) 0, Urine Bacteria (Auto) NEGATIVE, Urine Squamous Epithelial Cells 0, Urine Sperm (Auto) 01/21/21 06:47: Neutrophils (%) (Auto) , Neutrophils # (Auto) , Nucleated Red Blood Cells % (auto) 1.9H, Neutrophils 65, Band Neutrophils 8, Lymphocytes (Manual) 19, Monocytes (Manual) 3, Eosinophils (Manual) 1, Metamyelocytes 2H, Atypical Lymphocytes 2, Anisocytosis 1+, Macrocytosis 1+, Platelet Estimate DECREASED, Anion Gap 12, Glomerular Filtration Rate 6.7L, Calcium Level 7.8L, Phosphorus Level 5.5#H, Magnesium Level 2.0, Total Bilirubin 1.8H, Aspartate Amino Transf (AST/SGOT) 38H, Alanine Aminotransferase (ALT/SGPT) 22, Alkaline Phosphatase 41L, Total Protein 5.0L, Albumin 1.4L, Albumin/Globulin Ratio 0.4, Procalcitonin 129.19 01/21/21 06:52: Lactic Acid Followup at 4 Hours 3.3*H 01/21/21 08:34: Blood Gas Bicarbonate Standard 19.5L, Arterial Blood pH 7.325L, Arterial Blood Partial Pressure CO2 38.5, Arterial Blood Partial Pressure O2 63.7L, Arterial Blood Total CO2 20.8L, Arterial Blood HCO3 19.6L, Arterial Blood Base Excess - 5.9L, Arterial Blood Oxygen Saturation 88.8L CBC/BMP Laboratory Tests 01/21/21 02:06 01/21/21 06:47 Microbiology Microbiology 01/21/21 Blood Culture, Received Pending 01/21/21 Blood Culture, Received Pending 01/13/21 Blood Culture - Final, Complete NO GROWTH AFTER 5 DAYS 01/13/21 Blood Culture - Final, Complete NO GROWTH AFTER 5 DAYS Discharge Medications Scheduled Amlodipine Besylate (Amlodipine Besylate) 5 Mg Tablet, 5 MG PO QHS, (Reported) Carvedilol (Carvedilol) 12.5 Mg Tablet, 12.5 MG PO BID, (Reported) Lidocaine/Prilocaine (Lidocaine-Prilocaine Cream) 2.5%/2.5% Cream..g., 1 APPLIC TOP ASDIRECTED, (Reported) APPLY TO FISTULA PRIOR TO DIALYSIS Losartan Potassium (Losartan Potassium) 50 Mg Tablet, 50 MG PO QHS, (Reported) Pantoprazole Sodium (Pantoprazole Sodium) 40 Mg Tablet.dr, 40 MG PO QHS, (Reported) Sevelamer Carbonate (Sevelamer Carbonate) 800 Mg Tablet, 800 MG PO TID, (Reported) Allergies Coded Allergies: No Known Allergies (Unverified , 10/18/19) ZARA KITCHEN M.D. Jan 21, 2021 14:20
[2021-01-22] MEDS ORDERED: **VANCO AFTER HD** MISC XX SCH (16:00)
--- NOTE | 2021-01-23 10:18 | ECGEPIP ---
[facility] Test Date: 2021-01-20 Pat Name: DHIRAJ JACOBS Department: Room: [place] [address] Gender: Male Hydropress Operator: HOANG : 1965 Requested By: Mayela Arcos Order Number: [id number] Reading MD: Lazaro Yanez Measurements Intervals [place] Rate: 109 P: 73 TX: 128 QRS: -7 QRSD: 96 T: 72 QT: 340 QTc: 457 Interpretive Statements Sinus tachycardia with premature supraventricular complexes Nonspecific T wave abnormality Increased heart rate and new repolarization abnormalities compared with 01/13/2021. Electronically Signed on 01-23-2021 10:18:34 EDT by Lazaro Yanez
--- NOTE | 2021-01-23 10:46 | ECGEPIP ---
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
--- NOTE | 2021-01-25 15:33 | IPN ---
PROGRESS NOTE DATE: 01/20/2021 TIME OF VISIT: 10:50 SUBJECTIVE: I was called to the bedside for Cory Quezada. Dialysis had to be stopped early as he felt unwell. He was shivering, having back pain. He now reports that he had chest pain at that time that he did not report. He was markedly tachycardic and tachypneic. Dialysis was stopped. The patient was placed back on BiPAP. He was laid supine. Heart rate slowed considerably. It is now 110. Blood pressure 90 systolic. He says he is much more comfortable. Oxygen saturation now 90% on noninvasive support. He states chest pain has resolved. He is complaining mainly of back pain. ASSESSMENT AND PLAN: Primary service is being notified. At this point we will get cardiac enzymes. When he is able to lay supine we will get a 12-lead EKG. We did discuss with him again should he have further compromise or require endotracheal intubation or mechanical ventilation he is agreeable to that but my hope is that we can avoid this. Currently as outlined above, supine and on noninvasive support. His oxygen saturation is markedly improved and he is feeling much better. We will proceed as outlined.
== END 2021-01-21 12:45 | disposition expired | DRG 137 ==
LOC: M ED 13:46 → M ED INP 16:54 → M 4MAIN 19:44 → M ICU 01-14 16:14
PROVIDERS: ADMIT Internal Medicine; ATTEND Internal Medicine
PROC: XW033E5 Introduction of Remdesivir Anti-infective into Peripheral Vein, Percutaneous Approach, New Technology Group 5 (ICD-10-PCS; principal; 2021-01-13)
PROC: 3E0333Z Introduction of Anti-inflammatory into Peripheral Vein, Percutaneous Approach (ICD-10-PCS; 2021-01-13)
PROC: 5A1D70Z Performance of Urinary Filtration, Intermittent, Less than 6 Hours Per Day (ICD-10-PCS; 2021-01-15)
PROC: 0BH17EZ Insertion of Endotracheal Airway into Trachea, Via Natural or Artificial Opening (ICD-10-PCS; 2021-01-21)
PROC: 06HM33Z Insertion of Infusion Device into Right Femoral Vein, Percutaneous Approach (ICD-10-PCS; 2021-01-21)
PROC: 5A1935Z Respiratory Ventilation, Less than 24 Consecutive Hours (ICD-10-PCS; 2021-01-21)
DX: U07.1 COVID-19 (principal); J96.01 Acute respiratory failure with hypoxia; J12.82 Pneumonia due to coronavirus disease 2019; A41.9 Sepsis, unspecified organism; I95.89 Other hypotension; N18.6 End stage renal disease; J98.2 Interstitial emphysema; E46 Unspecified protein-calorie malnutrition; N25.81 Secondary hyperparathyroidism of renal origin; I12.0 Hypertensive chronic kidney disease with stage 5 chronic kidney disease or end stage renal disease; Z51.5 Encounter for palliative care; Z66 Do not resuscitate; K21.9 Gastro-esophageal reflux disease without esophagitis; D63.1 Anemia in chronic kidney disease; Z79.899 Other long term (current) drug therapy; Z99.2 Dependence on renal dialysis; J15.9 Unspecified bacterial pneumonia